=== PATIENT | female | born 1940 | race Caucasian/White ===

== ENCOUNTER → 2017-10-12 14:10 | Outpatient (CLI) | payer MEDICARE, OTHER, SELFPAY ==
[2017-10-12 14:44] LABS: HEMOLYSIS < 15 (0-50); Potassium 3.6 mmol/L (3.4-5.1)
== END ==
PROVIDERS: Family Provider Internal Medicine; PCP Internal Medicine; Visit Provider Internal Medicine
DX: I10 Essential (primary) hypertension (principal)
CPT/HCPCS: 36415; 84132

== ENCOUNTER → 2018-02-05 07:36 | Outpatient (CLI) | payer MEDICARE, OTHER, SELFPAY ==
[2018-02-05 08:20] LABS: Alanine Aminotransferase 22 IU/L (9-52); Albumin 4.4 g/dL (3.5-5.0); Albumin Globulin Ratio 1.1 (1.0-2.8); Alkaline Phosphatase 62 U/L (38-126); Aspartate Aminotransferase 34 IU/L (14-36); Bilirubin Total 0.6 mg/dL (0.2-1.3); Blood Urea Nitrogen 20 mg/dL (7-17); Calcium 9.9 mg/dL (8.4-10.2); Carbon Dioxide 37 mmol/L (22-32); Chloride 99 mmol/L (98-107); Cholesterol 186 mg/dL (140-199); Estimated Glomerular Filt Rate > 60.0 mL/min (>60); Globulin 4.1 g/dL (1.7-4.1); Glucose 112 mg/dL (80-110); HDL Cholesterol 68 mg/dL (40-60); HEMOLYSIS < 15 (0-50); LDL Cholesterol Calculated 104 mg/dL (<100); Potassium 3.7 mmol/L (3.4-5.1); Sodium 144 mmol/L (137-145); Total Protein 8.5 g/dL (6.3-8.2); Triglycerides 68 mg/dL (35-150)
== END ==
PROVIDERS: PCP Internal Medicine; Visit Provider Physician Assistant
DX: E78.5 Hyperlipidemia, unspecified (principal)
CPT/HCPCS: 36415; 80053; 80061

== ENCOUNTER → 2018-03-29 10:22 | Outpatient (CLI) | payer MEDICARE, OTHER, SELFPAY ==
[2018-03-29 11:36] LABS: Blood Urea Nitrogen 24 mg/dL (7-17); Calcium 9.4 mg/dL (8.4-10.2); Carbon Dioxide 33 mmol/L (22-32); Chloride 98 mmol/L (98-107); Estimated Glomerular Filt Rate > 60.0 mL/min (>60); Glucose 102 mg/dL (80-110); HEMOLYSIS < 15 (0-50); Potassium 3.8 mmol/L (3.4-5.1); Sodium 142 mmol/L (137-145)
== END ==
PROVIDERS: PCP Internal Medicine; Visit Provider Physician Assistant
DX: I10 Essential (primary) hypertension (principal); E87.6 Hypokalemia
CPT/HCPCS: 36415; 80048

== ENCOUNTER → 2018-04-02 14:53 | Outpatient (CLI) | payer MEDICARE, OTHER, SELFPAY ==
[2018-04-02 16:13] LABS: BUN Creatinine Ratio 31.3 (6-22); Blood Urea Nitrogen 25 mg/dL (7-17); Calcium 9.8 mg/dL (8.4-10.2); Carbon Dioxide 32 mmol/L (22-32); Chloride 98 mmol/L (98-107); Estimated Glomerular Filt Rate > 60.0 mL/min (>60); Glucose 92 mg/dL (80-110); HEMOLYSIS < 15 (0-50); Potassium 4.4 mmol/L (3.4-5.1); Sodium 140 mmol/L (137-145)
== END ==
PROVIDERS: PCP Internal Medicine; Visit Provider Physician Assistant
DX: I10 Essential (primary) hypertension (principal); E87.6 Hypokalemia
CPT/HCPCS: 36415; 80048

== ENCOUNTER → 2018-04-22 10:32 | Outpatient (CLI) | payer MEDICARE, OTHER, SELFPAY ==
[2018-04-22 11:24] LABS: BUN Creatinine Ratio 27.5 (6-22); Blood Urea Nitrogen 22 mg/dL (7-17); Calcium 10.1 mg/dL (8.4-10.2); Carbon Dioxide 31 mmol/L (22-32); Chloride 95 mmol/L (98-107); Estimated Glomerular Filt Rate > 60.0 mL/min (>60); Glucose 103 mg/dL (80-110); HEMOLYSIS < 15 (0-50); Potassium 3.8 mmol/L (3.4-5.1); Sodium 138 mmol/L (137-145)
== END ==
PROVIDERS: Family Provider Internal Medicine; PCP Internal Medicine; Visit Provider Physician Assistant
DX: I10 Essential (primary) hypertension (principal); E87.6 Hypokalemia
CPT/HCPCS: 36415; 80048

== ENCOUNTER → 2019-02-12 08:22 | Outpatient (CLI) | payer MEDICARE, OTHER, SELFPAY ==
[2019-02-12 10:05] LABS: HEMOLYSIS < 15 (0-50); Potassium 4.4 mmol/L (3.4-5.1)
[2019-02-12 10:07] LABS: BUN Creatinine Ratio 37.1 (6-22); Blood Urea Nitrogen 26 mg/dL (7-17); Calcium 9.8 mg/dL (8.4-10.2); Carbon Dioxide 32 mmol/L (22-32); Chloride 95 mmol/L (98-107); Estimated Glomerular Filt Rate > 60.0 mL/min (>60); Glucose 112 mg/dL (80-110); Sodium 137 mmol/L (137-145)
== END ==
PROVIDERS: Family Provider Internal Medicine; PCP Internal Medicine; Visit Provider Internal Medicine
DX: M85.852 Other specified disorders of bone density and structure, left thigh (principal); Z78.0 Asymptomatic menopausal state; I10 Essential (primary) hypertension; Z85.3 Personal history of malignant neoplasm of breast; Z82.62 Family history of osteoporosis; Z87.891 Personal history of nicotine dependence
CPT/HCPCS: 36415; 77080; 80048

== ENCOUNTER → 2019-02-25 08:25 | Outpatient (CLI) | payer MEDICARE, OTHER, SELFPAY ==
[2019-02-25 09:56] LABS: Hemoglobin A1C% w Est Avg Glu 5.7 % (4.0-6.0)
[2019-02-25 10:51] LABS: Aspartate Aminotransferase 31 IU/L (14-36); BUN Creatinine Ratio 26.3 (6-22); Blood Urea Nitrogen 21 mg/dL (7-17); Calcium 9.9 mg/dL (8.4-10.2); Carbon Dioxide 33 mmol/L (22-32); Chloride 93 mmol/L (98-107); Cholesterol 178 mg/dL (140-199); Estimated Glomerular Filt Rate > 60.0 mL/min (>60); Glucose 104 mg/dL (80-110); HDL Cholesterol 71 mg/dL (40-60); HEMOLYSIS < 15 (0-50); LDL Cholesterol Calculated 92 mg/dL (<100); Potassium 4.3 mmol/L (3.4-5.1); Sodium 135 mmol/L (137-145); Triglycerides 73 mg/dL (35-150)
== END ==
PROVIDERS: PCP Internal Medicine; Visit Provider Internal Medicine
DX: I10 Essential (primary) hypertension (principal); E78.2 Mixed hyperlipidemia; R73.01 Impaired fasting glucose
CPT/HCPCS: 36415; 80048; 80061; 83036; 84450

== ENCOUNTER 2019-03-06 13:10 | Observation (INO) | payer MEDICARE, OTHER, SELFPAY ==
[2019-03-06] VITALS (15 sets, daily range): BP systolic 90–150; BP diastolic 39–81; PULSE 54–81; RESP 10–20; TEMP 35.8–37.3; O2SAT 92–100; BMI 20.7
--- NOTE | 2019-03-06 | PATH_ITS ---
[facility] Accession Number: [id number] . 01 Material submitted: . appendix - APPENDIX . 02 Diagnosis: Appendix, Procedure Not Specified: Acute appendicitis and serositis. MRV 03/10/2019 1521 Local . 02 Electronically signed: . Bernadette Shannon MD, Pathologist NPI- [id number] . 01 Gross description: . Received in formalin, labeled appendix, is an intact appendix (length-12.2 cm, diameter-0.9 cm) with killian-pink smooth shiny serosa and attached mesoappendix (up to 2.0 cm in depth). The resection margin is received opened. The lumen contains killian solid soft material. The wall is up to 0.2 cm thick. No nodules, masses or lesions are identified. The resection margin is inked black. Section code: (A1) resection margin en face and four exhibit display representative serial sections; (A2) exhibit display representative serial sections; (A3) one-half of the bivalved tip. ([id number]) /MRV 03/10/2019 1644 Local . 02 Pathologist provided ICD-10: K35.80 . 02 CPT . 704658 Performed at: 01 [facility] [address] [facility], [place], [place] [id number] MD Ronald Ac MD Phone: [phone] Performed at: 02 [facility] [address] [place], [place] [id number] MD Kelly Poole MD Phone: [phone]
[2019-03-06 13:39] LABS: Add Manual Diff / Slide Review NO; Basophils Absolute Auto 100 /uL (0-100); Basophils Percent Auto 0.6 % (0-2); Eosinophils Absolute Auto 300 /uL (0-450); Eosinophils Percent Auto 2.1 % (2-4); Hematocrit 36.2 % (36-46); Hemoglobin 12.2 g/dL (12.0-16.0); Lymphocytes Absolute Auto 1600 /uL (1100-4500); Lymphocytes Percent Auto 10.5 % (25-40); Mean Corpuscular HGB Conc 33.6 % (30-36); Mean Corpuscular Hemoglobin 33.9 PG (26-34); Mean Corpuscular Volume 100.7 fL (80-100); Monocytes Absolute Auto 1100 /uL (0-900); Monocytes Percent Auto 7.3 % (3-14); Neutrophils Absolute Auto 11900 /uL (1500-7000); Neutrophils Percent Auto 79.5 % (50-75); Platelet Count 266 X10^3/uL (150-400); Red Cell Distribution Width 12.7 % (11.6-14.8)
--- NOTE | 2019-03-06 13:43 | ED.ABDPAIN ---
HPI - Abdominal Pain <Tiff Andrade PA-C - Last Filed: 03/06/19 19:21> General Chief Complaint: Abdominal Pain Stated Complaint: right lower quadrant pain xtoday Time Seen by Provider: 03/06/19 13:35 Source: patient Mode of arrival: Wheelchair Limitations: no limitations History of Present Illness HPI narrative: This 79-year-old female comes to ED secondary to right lower quadrant pain that started abruptly about 2-1/2 hours ago. She states that she felt normal this morning, ate about 10 30 and pain started an hour later (her ate the same food and no symptoms). She states this felt localized from onset, now more spread out over the right lower quadrant. She does have nausea, has not vomited. She denies any urinary symptoms such as dysuria or hematuria. She denies any bowel habit changes and had a normal bowel movement today. She denies any chest pain, dyspnea, pain or swelling in her extremities. She denies any fever. No rashes. No recent illness. She states pain is worse when up and about, especially with going over speed bumps on the way here. No specific alleviating features. She denies any lifting or any type of trauma prior to onset Related Data Home Medications Medication Instructions Recorded Confirmed timolol maleate 1 drp EYE-BOTH BEDTIME #0 04/12/16 03/06/19 zolpidem 2.5 mg PO BEDTIME PRN #0 04/12/16 03/06/19 Allertec 10 mg PO DAILY 03/06/19 03/06/19 CoQ-10 300 mg PO 3XW 03/06/19 03/06/19 calcium citrate-vitamin D3 2 tab PO DAILY 03/06/19 03/06/19 cyanocobalamin (vitamin B-12) 1,000 mcg PO DAILY 03/06/19 03/06/19 [Vitamin B-12] folic acid 0.4 mg PO DAILY 03/06/19 03/06/19 ibuprofen 600 mg PO Q6HP PRN 03/06/19 03/06/19 rosuvastatin 5 mg PO DAILY 03/06/19 03/06/19 spironolactone 50 mg PO BID 03/06/19 03/06/19 Allergies Allergy/AdvReac Type Severity Reaction Status Date / Time No Known Drug Allergies Allergy Verified 03/06/19 13:16 Review of Systems <Tiff Andrade PA-C - Last Filed: 03/06/19 19:21> Review of Systems ROS Unobtainable: All systems reviewed & are unremarkable except as noted in HPI and below PFSH <Tiff Andrade PA-C - Last Filed: 03/06/19 19:21> Medical History Glaucoma (Chronic) HTN (hypertension) (Chronic) Hyperlipidemia (Chronic) Surgical History Status post cholecystectomy (Resolved) Status post partial mastectomy Social History Smoking Status: Former smoker Social History household members: spouse Smoking Status: Former smoker Comment: Quit 1973 Exam <Tiff Andrade PA-C - Last Filed: 03/06/19 19:21> Narrative Exam Narrative: GENERAL APPEARANCE: Patient sitting comfortably HEENT: PERRL, EOMI, no scleral icterus, normal oropharynx NECK: Supple, no masses LUNGS: Clear to auscultation bilaterally. HEART: Rate and rhythm regular, normal S1 and S2, no S3 or S4. ABDOMEN: Soft, nondistended, bowel sounds present x 4 quadrants, no masses palpable, no hepatosplenomegaly. Generalized referred tenderness, exquisite tenderness over the right lower quadrant with rebound, no guarding. No suprapubic tenderness EXTREMITIES: No edema, no cyanosis, no calf tenderness DERMATOLOGIC: No jaundice or exanthem NEUROLOGIC: Alert and oriented with normal speech and coordination Initial Vital Signs Initial Vital Signs: Vital Signs Temperature 97.2 F L 03/06/19 13:14 Pulse Rate 59 L 03/06/19 13:14 Respiratory Rate 18 03/06/19 13:14 Blood Pressure 90/55 L 03/06/19 13:14 Pulse Oximetry 100 03/06/19 13:14 <Charles Quick DO - Last Filed: 03/07/19 06:57> Initial Vital Signs Initial Vital Signs: Vital Signs Temperature 97.2 F L 03/06/19 13:14 Pulse Rate 59 L 03/06/19 13:14 Respiratory Rate 18 03/06/19 13:14 Blood Pressure 90/55 L 03/06/19 13:14 Pulse Oximetry 100 03/06/19 13:14 Course <Tiff Andrade PA-C - Last Filed: 03/06/19 19:21> Course Additional Information: Radiologist called regarding parents of inflamed appendix on CT as well as possible gallbladder inflammation and mild ileus.. Harry happened to be in department and findings were reviewed. He plans to operate later today or tomorrow. Patient last ate at 10:30 a.m.. Zosyn started. Pain and nausea currently well controlled Orders Ordered: Gabapentin (Neurontin) 300 mg PO BEDTIME [facility] Last Admin: 03/06/19 21:30 Dose: Not Given Documented by: ELYSE Dextrose/Sodium Chloride (Dextrose 5%-0.45% Ns) 1,000 mls @ 84 mls/hr IV CONT [facility] Last Admin: 03/07/19 05:54 Dose: 84 mls/hr Documented by: Infusion: 03/07/19 05:54 Dose: 84 mls/hr Documented by: Admin: 03/06/19 19:52 Dose: 84 mls/hr Documented by: ELYSE Morphine Sulfate (Morphine) 2 mg IV Q2HR PRN PRN Reason: Pain, Moderate (4-6) Last Admin: 03/06/19 22:26 Dose: 2 mg Documented by: ELYSE Oxycodone/Acetaminophen (Percocet 5/325) 1 tab PO Q4HR PRN PRN Reason: Pain, Moderate (4-6) Ranitidine HCl (Zantac) 150 mg PO BID [facility] Last Admin: 03/06/19 21:30 Dose: Not Given Documented by: ELYSE Discontinued Medications Bacitracin (Bacitracin) 1 applic TOP NOW ONE Stop: 03/06/19 18:40 Last Admin: 03/06/19 18:40 Dose: 1 applic Documented by: NARA Bupivacaine HCl/Epinephrine Bitart (Sensorcaine 0.5% W/ Epi (Pf)) 30 ml INJ NOW ONE Stop: 03/06/19 18:28 Last Admin: 03/06/19 18:27 Dose: 20 ml Documented by: NARA Sodium Chloride 1,000 ml/ (Bacitracin 50,000 unit) 0 ml IRR NOW ONE Stop: 03/06/19 18:28 Last Admin: 03/06/19 18:27 Dose: 50,000 irrig.soln Documented by: NARA Sodium Chloride (Normal Saline 0.9%) 1,000 mls @ 1,000 mls/hr IV BOLUS ONE Stop: 03/06/19 14:55 Last Infusion: 03/06/19 15:40 Dose: 0 mls/hr Documented by: Admin: 03/06/19 14:06 Dose: 1,000 mls/hr Documented by: ROBBIE Piperacillin/Tazobactam/Dextrose (Zosyn) 3.375 gm in 50 mls @ 100 mls/hr IV NOW ONE Stop: 03/06/19 15:14 Last Infusion: 03/06/19 15:40 Dose: 0 mls/hr Documented by: Admin: 03/06/19 14:48 Dose: 100 mls/hr Documented by: ROMEO Lactated Ringer's (Lactated Ringers) 1,000 mls @ 42 mls/hr IV CONT [facility] Last Admin: 03/06/19 16:30 Dose: 42 mls/hr Documented by: MIGUEL Ketorolac Tromethamine (Toradol) 15 mg IV NOW ONE Stop: 03/06/19 13:57 Last Admin: 03/06/19 14:05 Dose: 15 mg Documented by: ROBBIE Morphine Sulfate (Morphine) 2 mg IV NOW ONE Stop: 03/06/19 13:57 Last Admin: 03/06/19 14:06 Dose: 2 mg Documented by: ROBBIE Ondansetron HCl (Zofran) 4 mg IV NOW ONE Stop: 03/06/19 13:57 Last Admin: 03/06/19 14:05 Dose: 4 mg Documented by: ROBBIE Vital Signs Vital signs: Vital Signs - 8 hr 03/06/19 13:14 Temperature 97.2 F L Pulse Rate 59 L Respiratory Rate 18 Blood Pressure 90/55 L Pulse Oximetry 100 <Charles Quick, DO - Last Filed: 03/07/19 06:57> Orders Ordered: Gabapentin (Neurontin) 300 mg PO BEDTIME [facility] Last Admin: 03/06/19 21:30 Dose: Not Given Documented by: ELYSE Dextrose/Sodium Chloride (Dextrose 5%-0.45% Ns) 1,000 mls @ 84 mls/hr IV CONT [facility] Last Admin: 03/07/19 05:54 Dose: 84 mls/hr Documented by: Infusion: 03/07/19 05:54 Dose: 84 mls/hr Documented by: Admin: 03/06/19 19:52 Dose: 84 mls/hr Documented by: ELYSE Morphine Sulfate (Morphine) 2 mg IV Q2HR PRN PRN Reason: Pain, Moderate (4-6) Last Admin: 03/06/19 22:26 Dose: 2 mg Documented by: ELYSE Oxycodone/Acetaminophen (Percocet 5/325) 1 tab PO Q4HR PRN PRN Reason: Pain, Moderate (4-6) Ranitidine HCl (Zantac) 150 mg PO BID [facility] Last Admin: 03/06/19 21:30 Dose: Not Given Documented by: ELYSE Discontinued Medications Bacitracin (Bacitracin) 1 applic TOP NOW ONE Stop: 03/06/19 18:40 Last Admin: 03/06/19 18:40 Dose: 1 applic Documented by: NARA Bupivacaine HCl/Epinephrine Bitart (Sensorcaine 0.5% W/ Epi (Pf)) 30 ml INJ NOW ONE Stop: 03/06/19 18:28 Last Admin: 03/06/19 18:27 Dose: 20 ml Documented by: ALTRO Sodium Chloride 1,000 ml/ (Bacitracin 50,000 unit) 0 ml IRR NOW ONE Stop: 03/06/19 18:28 Last Admin: 03/06/19 18:27 Dose: 50,000 irrig.soln Documented by: ALTRO Sodium Chloride (Normal Saline 0.9%) 1,000 mls @ 1,000 mls/hr IV BOLUS ONE Stop: 03/06/19 14:55 Last Infusion: 03/06/19 15:40 Dose: 0 mls/hr Documented by: Admin: 03/06/19 14:06 Dose: 1,000 mls/hr Documented by: ROBBIE Piperacillin/Tazobactam/Dextrose (Zosyn) 3.375 gm in 50 mls @ 100 mls/hr IV NOW ONE Stop: 03/06/19 15:14 Last Infusion: 03/06/19 15:40 Dose: 0 mls/hr Documented by: Admin: 03/06/19 14:48 Dose: 100 mls/hr Documented by: ROMOE Lactated Ringer's (Lactated Ringers) 1,000 mls @ 42 mls/hr IV CONT [facility] Last Admin: 03/06/19 16:30 Dose: 42 mls/hr Documented by: AKUNMARCE Ketorolac Tromethamine (Toradol) 15 mg IV NOW ONE Stop: 03/06/19 13:57 Last Admin: 03/06/19 14:05 Dose: 15 mg Documented by: BTONER Morphine Sulfate (Morphine) 2 mg IV NOW ONE Stop: 03/06/19 13:57 Last Admin: 03/06/19 14:06 Dose: 2 mg Documented by: BTONER Ondansetron HCl (Zofran) 4 mg IV NOW ONE Stop: 03/06/19 13:57 Last Admin: 03/06/19 14:05 Dose: 4 mg Documented by: BTONER Vital Signs Vital signs: Vital Signs - 8 hr 03/06/19 13:14 Temperature 97.2 F L Pulse Rate 59 L Respiratory Rate 18 Blood Pressure 90/55 L Pulse Oximetry 100 MDM - Abdominal Pain <Tiff Andrade PA-C - Last Filed: 03/06/19 19:21> Lab Data Attestation: I reviewed the patient's lab results. Result diagrams: 03/06/19 13:30 03/06/19 13:30 Labs: Lab Results 03/06/19 03/06/19 03/06/19 Range/Units 13:30 13:30 13:30 WBC 15.0 H (4.5-11.0) X10^3/uL RBC 3.60 L (4.0-5.2) X10^6/uL Hgb 12.2 (12.0-16.0) g/dL Hct 36.2 (36-46) % MCV 100.7 H (80-100) fL MCH 33.9 (26-34) PG MCHC 33.6 (30-36) % RDW 12.7 (11.6-14.8) % Plt Count 266 (150-400) X10^3/uL Neut % (Auto) 79.5 H (50-75) % Lymph % (Auto) 10.5 L (25-40) % [place] % (Auto) 7.3 (3-14) % Eos % (Auto) 2.1 (2-4) % Baso % (Auto) 0.6 (0-2) % Neut # (Auto) 51174 H (2181-2568) /uL Lymph # (Auto) 1600 (8294-2474) /uL [place] # (Auto) 1100 H (0-900) /uL Eos # (Auto) 300 (0-450) /uL Baso # (Auto) 100 (0-100) /uL PT 11.6 (10.1-12.7) SECONDS INR 1.0 (0.9-1.3) APTT 29 (26.4-36.2) SECONDS Sodium 134 L (137-145) mmol/L Potassium 4.0 (3.4-5.1) mmol/L Chloride 94 L (98-107) mmol/L Carbon Dioxide 28 (22-32) mmol/L BUN 28 H (7-17) mg/dL Creatinine 1.10 H (0.52-1.04) mg/dL Estimated GFR 48.2 L (>60) mL/min BUN/Creatinine Ratio 25.5 H (6-22) Glucose 139 H (80-110) mg/dL Calcium 10.0 (8.4-10.2) mg/dL Total Bilirubin 0.4 (0.2-1.3) mg/dL AST 32 (14-36) IU/L ALT 15 (9-52) IU/L Alkaline Phosphatase 59 (38-126) U/L Total Protein 8.0 (6.3-8.2) g/dL Albumin 4.5 (3.5-5.0) g/dL Globulin 3.5 (1.7-4.1) g/dL Albumin/Globulin Ratio 1.3 (1.0-2.8) Lipase 62 (23-300) U/L Imaging Data CT scan - abdomen: Radiologist's impression: [address] [address] [address] Scan Report Signed Patient: Brenda Lerma EMR#: [id number] : 2Acct:[id number] Age/Sex: 79 / FDate of Service: 03/06/19 Loc: AQ88O-7 Accession Number: [id number] Procedure: CT abdomen pelvis w con Ordering Provider: Tiff Andrade P.A-C PROCEDURE: CT ABDOMEN PELVIS W CON INDICATIONS: RLQ pain, nausea, white count TECHNIQUE: After the administration of intravenous contrast, 5 mm thick sections acquired from the diaphragm to the symphysis. 5 mm coronal and sagittal reformats were acquired. For radiation dose reduction, the following was used: automated exposure control, adjustment of mA and/or kV according to patient size. COMPARISON: CT chest 03/19/2007. FINDINGS: Image quality: Excellent. ABDOMEN: Lung bases: Lung bases are clear. Heart size is normal. Solid organs: Liver is normal in size and enhancement. A few tiny hepatic hypodensities which are too small to further characterize. Statistically these most likely represent benign cysts. Gallbladder is nondistended. No calcified gallstones. There is trace pericholecystic fluid. The gallbladder wall may be mildly thickened with increased enhancement. Biliary system is non dilated. Pancreas enhances normally. Spleen is normal in size and enhancement. Well-circumscribed hypodense lesion measuring 2.8 x 2.6 cm, (2/10), previously 1.1 x 0.9 cm. Second subcentimeter hypodensity in the lateral superior pole is smaller. These most likely represents a hemangiomas or cysts. No adrenal nodules. Kidneys demonstrate normal size and enhancement, without hydronephrosis. Several small nonobstructing kidney stones bilaterally. Right kidney superior pole simple cyst measuring 5 cm. Simple cyst in the left kidney. No solid mass. Peritoneum and bowel: The appendix is mildly dilated measuring 8 mm, (2/38). There is moderate surrounding fat stranding. No calcified appendicolith. No loculated fluid collection or extra luminal gas. There are a few prominent loops of small bowel in the lower abdomen. The colon is redundant. Nodes and vessels: No retroperitoneal or mesenteric adenopathy by size criteria. Aorta and inferior vena cava are normal in size. Miscellaneous: No ventral hernias. PELVIS: Genitourinary: Bladder wall thickness is normal. Uterus is retroverted and normal in size. Probable small calcified fibroids. Miscellaneous: Small fat-containing inguinal hernias. Bones: Osteopenia. No suspicious bony lesions. No vertebral body compression fractures. IMPRESSION: 1. Dilated appendix with surrounding inflammatory change is most consistent with acute appendicitis. No rupture or abscess. 2. Probable secondary inflammatory change of the nondilated gallbladder wall. 3. A few dilated loops of small bowel most likely ileus. Comment: Findings were discussed with Tiff Andrade PA-C at the time of dictation. Dictated by: Steve Vigil M.D. on 03/06/2019 at 14:30 Approved by: Steve Vigil M.D. on 03/06/2019 at 14:45 ECG Data Attestation: I personally reviewed and interpreted this ECG as follows: (Normal sinus rhythm rate 75) Prior ECG tracings: not available for review <Charles Quick DO - Last Filed: 03/07/19 06:57> Lab Data Labs: Lab Results 03/06/19 03/06/19 03/06/19 Range/Units 13:30 13:30 13:30 WBC 15.0 H (4.5-11.0) X10^3/uL RBC 3.60 L (4.0-5.2) X10^6/uL Hgb 12.2 (12.0-16.0) g/dL Hct 36.2 (36-46) % MCV 100.7 H (80-100) fL MCH 33.9 (26-34) PG MCHC 33.6 (30-36) % RDW 12.7 (11.6-14.8) % Plt Count 266 (150-400) X10^3/uL Neut % (Auto) 79.5 H (50-75) % Lymph % (Auto) 10.5 L (25-40) % [place] % (Auto) 7.3 (3-14) % Eos % (Auto) 2.1 (2-4) % Baso % (Auto) 0.6 (0-2) % Neut # (Auto) 30106 H (6970-5582) /uL Lymph # (Auto) 1600 (9774-0725) /uL [place] # (Auto) 1100 H (0-900) /uL Eos # (Auto) 300 (0-450) /uL Baso # (Auto) 100 (0-100) /uL PT 11.6 (10.1-12.7) SECONDS INR 1.0 (0.9-1.3) APTT 29 (26.4-36.2) SECONDS Sodium 134 L (137-145) mmol/L Potassium 4.0 (3.4-5.1) mmol/L Chloride 94 L (98-107) mmol/L Carbon Dioxide 28 (22-32) mmol/L BUN 28 H (7-17) mg/dL Creatinine 1.10 H (0.52-1.04) mg/dL Estimated GFR 48.2 L (>60) mL/min BUN/Creatinine Ratio 25.5 H (6-22) Glucose 139 H (80-110) mg/dL Calcium 10.0 (8.4-10.2) mg/dL Total Bilirubin 0.4 (0.2-1.3) mg/dL AST 32 (14-36) IU/L ALT 15 (9-52) IU/L Alkaline Phosphatase 59 (38-126) U/L Total Protein 8.0 (6.3-8.2) g/dL Albumin 4.5 (3.5-5.0) g/dL Globulin 3.5 (1.7-4.1) g/dL Albumin/Globulin Ratio 1.3 (1.0-2.8) Lipase 62 (23-300) U/L Discharge Plan Departure Patient Disposition: Admitted as Observation Clinical Impression: Acute appendicitis Qualifiers: Acute appendicitis type: with localized peritonitis Appendicitis gangrene presence: without gangrene Appendicitis perforation presence: without perforation Appendicitis abscess presence: without abscess Qualified Code(s): K35.30 - Acute appendicitis with localized peritonitis, without perforation or gangrene Discharge Date/Time: 03/06/19 16:03 Admit Date/Time: 03/06/19 14:36 Admit Provider: Donn Mcdonald
[2019-03-06 13:57] LABS: Alanine Aminotransferase 15 IU/L (9-52); Albumin 4.5 g/dL (3.5-5.0); Albumin Globulin Ratio 1.3 (1.0-2.8); Alkaline Phosphatase 59 U/L (38-126); Aspartate Aminotransferase 32 IU/L (14-36); BUN Creatinine Ratio 25.5 (6-22); Bilirubin Total 0.4 mg/dL (0.2-1.3); Blood Urea Nitrogen 28 mg/dL (7-17); Carbon Dioxide 28 mmol/L (22-32); Chloride 94 mmol/L (98-107); Estimated Glomerular Filt Rate 48.2 mL/min (>60); Globulin 3.5 g/dL (1.7-4.1); Glucose 139 mg/dL (80-110); HEMOLYSIS < 15 (0-50); Lipase 62 U/L (23-300); Sodium 134 mmol/L (137-145)
--- NOTE | 2019-03-06 13:57 | DI.CT.S_ITS ---
PROCEDURE: CT ABDOMEN PELVIS W CON INDICATIONS: RLQ pain, nausea, white count TECHNIQUE: After the administration of intravenous contrast, 5 mm thick sections acquired from the diaphragm to the symphysis. 5 mm coronal and sagittal reformats were acquired. For radiation dose reduction, the following was used: automated exposure control, adjustment of mA and/or kV according to patient size. COMPARISON: CT chest 03/19/2007. FINDINGS: Image quality: Excellent. ABDOMEN: Lung bases: Lung bases are clear. Heart size is normal. Solid organs: Liver is normal in size and enhancement. A few tiny hepatic hypodensities which are too small to further characterize. Statistically these most likely represent benign cysts. Gallbladder is nondistended. No calcified gallstones. There is trace pericholecystic fluid. The gallbladder wall may be mildly thickened with increased enhancement. Biliary system is non dilated. Pancreas enhances normally. Spleen is normal in size and enhancement. Well-circumscribed hypodense lesion measuring 2.8 x 2.6 cm, (2/10), previously 1.1 x 0.9 cm. Second subcentimeter hypodensity in the lateral superior pole is smaller. These most likely represents a hemangiomas or cysts. No adrenal nodules. Kidneys demonstrate normal size and enhancement, without hydronephrosis. Several small nonobstructing kidney stones bilaterally. Right kidney superior pole simple cyst measuring 5 cm. Simple cyst in the left kidney. No solid mass. Peritoneum and bowel: The appendix is mildly dilated measuring 8 mm, (2/38). There is moderate surrounding fat stranding. No calcified appendicolith. No loculated fluid collection or extra luminal gas. There are a few prominent loops of small bowel in the lower abdomen. The colon is redundant. Nodes and vessels: No retroperitoneal or mesenteric adenopathy by size criteria. Aorta and inferior vena cava are normal in size. Miscellaneous: No ventral hernias. PELVIS: Genitourinary: Bladder wall thickness is normal. Uterus is retroverted and normal in size. Probable small calcified fibroids. Miscellaneous: Small fat-containing inguinal hernias. Bones: Osteopenia. No suspicious bony lesions. No vertebral body compression fractures. IMPRESSION: 1. Dilated appendix with surrounding inflammatory change is most consistent with acute appendicitis. No rupture or abscess. 2. Probable secondary inflammatory change of the nondilated gallbladder wall. 3. A few dilated loops of small bowel most likely ileus. Comment: Findings were discussed with Tiff Andrade PA-C at the time of dictation. Dictated by: Steve Vigil M.D. on 03/06/2019 at 14:30 Approved by: Steve Vigil M.D. on 03/06/2019 at 14:45
[2019-03-06] MEDS: ONDANSETRON 4 MG/2 ML INJ IV (14:05)
[2019-03-06] MEDS: KETOROLAC 60 MG/2 ML VIAL 15 MG IV (14:05)
[2019-03-06 14:06] LABS: Prothrombin Time 11.6 SECONDS (10.1-12.7)
[2019-03-06] MEDS: MORPHINE 2 MG/ML INJ IV ×2 (14:06→22:26)
[2019-03-06] MEDS: SODIUM CHLORIDE 0.9% 1,000 ML 1000 ML IV (14:06)
[2019-03-06 14:09] LABS: PTT Partial Thromboplastin Tim 29 SECONDS (26.4-36.2)
[2019-03-06] MEDS: PIPERACILLIN-TAZO 3.375 GM/50 ML FROZ.PIGGY IV (14:48)
--- NOTE | 2019-03-06 15:08 | P.HP_ITS ---
History of Present Illness History of Present Illness Date Patient Seen: 03/06/19 Time Patient Seen: 15:08 Chief complaint: right lower quadrant pain xtoday Narrative: 79-year-old white female patient developed sudden lower abdominal pain late this morning has subsequently had increasing pain with considerable nausea but no vomiting. She is now anorectic. [place] [address] [place] scan showing evidence of ac [place] appendicitis uncomplicated. Hemoglobins normal. Liver chemistries are normal. Patient History Medical History Glaucoma (Chronic) HTN (hypertension) (Chronic) Hyperlipidemia (Chronic) Surgical History Status post cholecystectomy (Resolved) Status post partial mastectomy Social History Smoking Status: Former smoker Family & Social History Safety & Behavioral: Feels Safe in Current Yes Environment Been Physically Hurt or No Threatened By a Person Tobacco & Substance use: Smoking Status Former smoker alcohol intake frequency 0-2 drinks per day Substance Use Type does not use Meds Home Medications and Allergies Home Medications Medication Instructions Recorded Confirmed Type POTASSIUM CHLORIDE (POTASSIUM 30 meq PO Q DAY #0 01/30/12 History CHLORIDE 10ML VIAL) aspirin 81 mg PO QDAY #0 01/30/12 History hydrochlorothiazide 50 mg PO QDAY #0 01/30/12 History timolol maleate 1 drp OPHTH DAILY #0 04/12/16 03/06/19 History zolpidem 5 mg PO HSP PRN #0 04/12/16 History ibuprofen 600 mg PO Q6HP PRN #60 tab 11/25/16 Rx rosuvastatin 5 mg PO DAILY 03/06/19 03/06/19 History Allergies Allergy/AdvReac Type Severity Reaction Status Date / Time No Known Drug Allergies Allergy Verified 03/06/19 13:16 Review of Systems Review of Systems ROS Unobtainable: All systems reviewed & are unremarkable except as noted in HPI and below Exam Vital Signs (past 8 hours): - 03/06/19 13:14 03/06/19 14:55 Temperature 97.2 F L Pulse Rate 59 L 81 Respiratory Rate 18 15 Blood Pressure 90/55 L Blood Pressure [Left Arm] 124/54 L Pulse Oximetry 100 99 Oxygen Delivery Method Room Air Narrative Exam Narrative: Patient is alert oriented complaining of lower abdominal pain she is afebrile. Ears nose and throat are normal. Neck no adenopathy. Heart regular rhythm no murmur Lungs are clear with no rales or wheezes Abdomen is soft in the upper quadrants with exquisite right lower quadrant guarding and tenderness. No masses are palpated. Remaining physical is unremarkable. Neurologic intact. Objective Labs Result Diagrams: 03/06/19 13:30 03/06/19 13:30 Labs: Laboratory Results - last 24 hr 03/06/19 03/06/19 03/06/19 13:30 13:30 13:30 WBC 15.0 H RBC 3.60 L Hgb 12.2 Hct 36.2 MCV 100.7 H MCH 33.9 MCHC 33.6 RDW 12.7 Plt Count 266 Neut % (Auto) 79.5 H Lymph % (Auto) 10.5 L [place] % (Auto) 7.3 Eos % (Auto) 2.1 Baso % (Auto) 0.6 Neut # (Auto) 52573 H Lymph # (Auto) 1600 [place] # (Auto) 1100 H Eos # (Auto) 300 Baso # (Auto) 100 PT 11.6 INR 1.0 APTT 29 Sodium 134 L Potassium 4.0 Chloride 94 L Carbon Dioxide 28 BUN 28 H Creatinine 1.10 H Estimated GFR 48.2 L BUN/Creatinine Ratio 25.5 H Glucose 139 H Calcium 10.0 Total Bilirubin 0.4 AST 32 ALT 15 Alkaline Phosphatase 59 Total Protein 8.0 Albumin 4.5 Globulin 3.5 Albumin/Globulin Ratio 1.3 Lipase 62 Assessment & Plan Assessment & Plan narrative: Patient with a elevated white blood cell count and CT evidence of acute uncomplicated appendicitis which is consistent with her history and physical exam. I have explained to the patient her that we will plan an appendectomy as soon as space is available in the operating room. They understand and agree and have no further questions.
[2019-03-06] MEDS: LACTATED RINGERS 1,000 ML 42 ML IV (16:30)
--- NOTE | 2019-03-06 17:03 | PC.NURSE ---
Addendum entered by Yelitza Isaac R.N. 03/06/19 19:50: 1935: Patient return from PACU in stable condition. Received on O2 at 2L via NC, sat >96% while awake. SCD in place. No nausea, tolerating ice chips. No c/o pain. dressing to RLQ abdomen with 4 x 4 gauze x 2 CDI. Original Note: Cony shift note: 1700 Patient off unit to Pre Op with [place] FRANCIS. Patient awake, alert, and pleasant. NPO since 11:30. at bedside providing supportive care. VSS and afebrile.
--- NOTE | 2019-03-06 17:55 | SUR.OPER ---
Supine on padded OR bed, head on pillow, arms secured on padded arm boards at <90 degrees abduction, legs uncrossed, safety belt at thigh, tape over blanket over lower legs.
[2019-03-06] MEDS: SODIUM CHLORIDE IRRIG SOLUTION 1,000 ML, BACITRACIN 50,000 UNIT IRR (18:27)
[2019-03-06] MEDS: BUPIVACAINE 0.5% W/ EPI (PF) VIAL 30 ML INJ (18:27)
[2019-03-06] MEDS: BACITRACIN OINT 0.9 GM PCKT 1 APPLIC TOP (18:40)
--- NOTE | 2019-03-06 18:47 | PM.OP.1 ---
Operative Date/Time/Diagnoses Date of procedure: 03/06/19 Time of procedure: 18:47 Pre-op diagnosis: Acute uncomplicated appendicitis Post-op diagnosis: same Procedure & Clinicians Procedure: Appendectomy Same procedure as scheduled: Yes Surgeon: Donn cMdonald Click Yes if Unassisted: Yes Anesthesia Type: General Operative Notes Findings: Acute uncomplicated appendicitis Closure Type: primary Specimen(s): other (Appendix and appendiceal cultures) Estimated Blood Loss (mL): 50 Blood products transfused: none Procedure in detail: The patient was properly identified during surgical pause given a general endotracheal anesthetic prepped and draped in the sterile fashion exposure of the lower abdomen. A standard Bowen-Santana incision was made over McBurney's point. The oblique muscles split in the grid iron fashion to expose the peritoneum which was elevated and entered so as to avoid injury to the underlying structures. The appendix was rotated into the wound it was markedly elongated and coated with fibrin but was not ruptured and there was no abscess. Patient had uncomplicated acute appendicitis. Mesoappendix divided between clamps the vessels ligated with 2 0 Vicryl there was excellent hemostasis the base of the appendix was closed with a TA 30? stapler and the appendix removed over the staple line which was intact. There is no bleeding. The cecum rotated back into the abdomen and the pelvis was irrigated with a copious amount of bacitracin saline. The appendix had been cultured prior to any irrigation. Peritoneum was closed with running 2 0 Vicryl. Oblique fascia closed with 1. PDS. Subcu closed with fine Vicryl. The subcu had been irrigated with bacitracin saline and then the skin was stapled. Sterile dressings applied she tolerated the procedure very well. Skin was anesthetized with 0.5% Marcaine prior to closure. Complications: none Post-operative Condition: stable Disposition: PACU
[2019-03-06] MEDS: DEXTROSE 5%-0.45% NS 1,000 ML 84 ML IV (19:52)
[2019-03-07 00:35] VITALS: BP 120/63; PULSE 60; RESP 16; TEMP 36.9; O2SAT 99
[2019-03-07] MEDS: DEXTROSE 5%-0.45% NS 1,000 ML 84 ML IV (05:54)
[2019-03-07 05:57] VITALS: BP 112/56; PULSE 58; RESP 17; TEMP 36.5; O2SAT 98
[2019-03-07 07:15] VITALS: BP 107/58; PULSE 55; RESP 18; TEMP 36.5; O2SAT 100
--- NOTE | 2019-03-07 09:39 | P.DS_ITS ---
History of Present Illness History of Present Illness Date Patient Seen: 03/07/19 Time Patient Seen: 09:40 Chief complaint: right lower quadrant pain xtoday Narrative: 79-year-old white female patient developed sudden lower abdominal pain late this morning has subsequently had increasing pain with considerable nausea but no vomiting. She is now anorectic. She came [place] the [place] [address] [place] scan showing evidence of ac [place] appendicitis uncomplicated. Hemoglobins normal. Liver chemistries are normal. Discharge Providers Provider Date of admission: 03/06/19 14:36 Discharge Date: 03/07/19 Primary care physician: Alex Clay MD Discharge provider: Donn Mcdonald MD Summary Hospital Course Discharge Diagnosis: Acute uncomplicated appendicitis Hospital Course: Patient was admitted through the emergency department given IV fluids and antibiotics and taken to the operating room the evening of admission. She underwent open appendectomy for uncomplicated appendicitis. This morning she feels very well better than before surgery. Minimal discomfort. She is tolerating a diet and has return of GI function. She is discharged home to resume pre-admission medications no prescriptions are given. Status at Discharge Cognitive/behavioral status at discharge: oriented Functional status at discharge: independent ambulation Overall status at discharge: patient is back to baseline Time Spent with Patient Time spent: Less than 30 minutes Exam Vital Signs (past 8 hours): - 03/07/19 05:57 03/07/19 07:15 Temperature 97.7 F 97.7 F Pulse Rate 58 L 55 L Respiratory Rate 17 18 Blood Pressure 112/56 L 107/58 L Pulse Oximetry 98 100 Oxygen Delivery Method Room Air Oxygen Flow Rate 0 Narrative Exam Narrative: Patient is afebrile abdomen is soft dressing is intact and dry. Objective Labs Result Diagrams: 03/06/19 13:30 03/06/19 13:30 Labs: Laboratory Results - last 24 hr 03/06/19 03/06/19 03/06/19 13:30 13:30 13:30 WBC 15.0 H RBC 3.60 L Hgb 12.2 Hct 36.2 MCV 100.7 H MCH 33.9 MCHC 33.6 RDW 12.7 Plt Count 266 Neut % (Auto) 79.5 H Lymph % (Auto) 10.5 L [place] % (Auto) 7.3 Eos % (Auto) 2.1 Baso % (Auto) 0.6 Neut # (Auto) 58430 H Lymph # (Auto) 1600 [place] # (Auto) 1100 H Eos # (Auto) 300 Baso # (Auto) 100 PT 11.6 INR 1.0 APTT 29 Sodium 134 L Potassium 4.0 Chloride 94 L Carbon Dioxide 28 BUN 28 H Creatinine 1.10 H Estimated GFR 48.2 L BUN/Creatinine Ratio 25.5 H Glucose 139 H Calcium 10.0 Total Bilirubin 0.4 AST 32 ALT 15 Alkaline Phosphatase 59 Total Protein 8.0 Albumin 4.5 Globulin 3.5 Albumin/Globulin Ratio 1.3 Lipase 62 Discharge Plan Discharge Plan Patient Disposition: Home Discharge Med Rec/Prescriptions Prescriptions: Continued timolol maleate 0.5 % drops 1 drp EYE-BOTH BEDTIME Qty: 0 RF: 0 zolpidem 5 MG tablet 2.5 mg PO BEDTIME PRN (Reason: Sleep) Qty: 0 RF: 0 rosuvastatin 5 mg tablet 5 mg PO DAILY RF: 0 spironolactone 50 mg tablet 50 mg PO BID RF: 0 Allertec 10 mg 10 mg PO DAILY RF: 0 cyanocobalamin (vitamin B-12) [Vitamin B-12] 1,000 mcg Tablet 1,000 mcg PO DAILY RF: 0 calcium citrate-vitamin D3 200 mg calcium -250 unit Tablet 2 tab PO DAILY RF: 0 CoQ-10 300 mg 300 mg PO 3XW RF: 0 ibuprofen 600 MG tablet 600 mg PO Q6HP PRN (Reason: pain) RF: 0 folic acid 400 mcg Tablet 0.4 mg PO DAILY RF: 0 Follow up/Referrals: Alex Clay MD [Primary Care Provider] - Provider Discharge Instructions Diet: Diet as Tolerated Activity: Resume normal activities but avoid heavy lifting for a month. Skin/Wound/Dressing Care Report to your healthcare provider any signs of infection, such as:: chills, fever, night sweats, increased pain, unusual drainage and unusual redness Dressing: Change dressing in 48 hours re-dress as needed may shower at any time with or without dressing in place Visit Report/Discharge Packet Instructions: DI for an Appendectomy Discharge Data Primary Care Provider: Alex Clay V Attending Provider: Donn Mcdonald Admit Date/Time: 03/06/19 14:36
--- NOTE | 2019-03-07 10:29 | CM.IDA ---
Initial DCP Assessment Note: Pt is a 79 yo female, resident of [place]. Pt under observation for acute appendicitis and has been DC this morning. PCP: Dr Clay Payer: Medicare/[facility] Met w/pt explained SW role. 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 No needs identified. 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 Yes History Provided By Patient,Medical Record Prior Living Arrangements House Household Members spouse Type of transporation used prior to Drives own vehicle admit Independent with ADL's Yes Is patient alert and oriented? Yes Discharge Plan Home Transportation Arrangement Family Referrals Initiated None needed Review Status In Process
--- NOTE | 2019-03-07 11:00 | PC.NURSE ---
Pt is dressed and ready for discharge home with Spouse. Pt's Spouse is on his way to pick her up and take her home. Reviewed d/c instructions with Pt -discussed d/c meds, time of last dose, no new prescriptions so discussed tylenol and ibuprofen dosing. Reminded Pt to not lift greater than 10-15 pounds, reviewed stroke education, signs and symptoms of infection, and discussed follow up appointment. Pt denied further questions and was taken out via w/c to POV with all belongings.
--- NOTE | 2019-03-24 10:02 | PC.NURSE ---
late entry: Lactated Ringers stopped 03/06 1930
== END 2019-03-07 11:47 | disposition home or self-care (01) ==
LOC: ED 13:35 → AC 14:37
PROVIDERS: Emergency Medicine; Admitting Provider Surgery; Emergency Provider Internal Medicine; PCP Internal Medicine; Visit Provider Surgery
PROC: (CPT 44950; principal; 2019-03-06 17:30)
DX: K35.30 Acute appendicitis with localized peritonitis, without perforation or gangrene (principal); R10.31 Right lower quadrant pain; I10 Essential (primary) hypertension; E78.5 Hyperlipidemia, unspecified
CPT/HCPCS: 44970; 36415; 74177; 80053; 83690; 85025; 85610; 85730; 87070; 87075; 87205; 93005; 96361; 96365; 96375; 96376; 99219; 99283; 99285; G0378; J0330; J1100; J1170; J1885; J2270; J2405; J2543; J2704; J3010; Q9967

== ENCOUNTER → 2020-02-25 19:31 | Outpatient (ROUT) | payer MEDICARE, OTHER, SELFPAY ==
[2019-03-06 16:11] VITALS: BMI 20.7
[2020-02-25 19:56] LABS: Aspartate Aminotransferase 31 IU/L (14-36); BUN Creatinine Ratio 28.6 (6-22); Blood Urea Nitrogen 20 mg/dL (7-17); Calcium 9.7 mg/dL (8.4-10.2); Carbon Dioxide 31 mmol/L (22-32); Chloride 94 mmol/L (98-107); Cholesterol 206 mg/dL (140-199); Estimated Glomerular Filt Rate > 60.0 mL/min (>60); Glucose 105 mg/dL (80-110); HDL Cholesterol 71 mg/dL (40-60); HEMOLYSIS < 15 (0-50); LDL Cholesterol Calculated 118 mg/dL (<100); Potassium 4.7 mmol/L (3.4-5.1); Sodium 132 mmol/L (137-145); Triglycerides 84 mg/dL (35-150)
[2020-02-25 19:57] LABS: Hemoglobin A1C% w Est Avg Glu 6.1 % (4.0-6.0)
== END ==
PROVIDERS: PCP Internal Medicine; Visit Provider Internal Medicine
DX: I10 Essential (primary) hypertension (principal)
CPT/HCPCS: 80048; 80061; 83036; 84450

== ENCOUNTER → 2020-05-08 13:07 | Outpatient (CLI) | payer MEDICARE, OTHER, SELFPAY ==
[2019-03-06 16:11] VITALS: BMI 20.7
--- NOTE | 2020-05-08 | DI.MRI.S_ITS ---
PROCEDURE: MR SHOULDER LT WO CON INDICATIONS: Pain in left shoulder TECHNIQUE: Noncontrast oblique coronal T2 fast spin echo with fat saturation, oblique sagittal T1 spin echo and T2 fast spin echo with fat saturation, axial T1 spin echo and T2 fast spin echo with fat saturation through the shoulder. COMPARISON: [facility], CR, XR SHOULDER 2+ VIEWS LEFT, 05/05/2020, 13:41. FINDINGS: Image quality: Excellent. Rotator cuff: There is full-thickness tear of the supraspinatus tendon measuring 6 cm transverse x 7 mm AP. Tear the supraspinatus extending to the footprint. [id number] tear of the infraspinatus tendon is seen involving the articular surface. The subscapularis tendon appears intact with mild tendon thickening consistent with tendinosis. Sagittal images demonstrate no rotator cuff muscle atrophy. Bones and bursae: No acute fractures. Old fracture/deformity of the proximal humerus at the junction of metaphysis and diaphysis. Mild acromioclavicular and moderate glenohumeral joint degeneration. The acromion demonstrates conventional anatomy, without an os acromiale. There is moderate subacromial-subdeltoid bursal fluid and small subcoracoid bursal fluid consistent with bursitis. Capsule and soft tissues: There is degenerative fraying of the glenoid lobe labrum. In the absence of intra-articular contrast, the glenohumeral ligaments appear intact. The long head of the biceps tendon demonstrates normal location and morphology. The rotator interval appears normal, without fibrosis. The coracohumeral ligament is normal in thickness. IMPRESSION: 1. Full-thickness tear of the distal supraspinatus tendon. 2. Partial thickness tear of the infraspinatus tendon. 3. Subscapularis tendinitis. 4. Subacromial-subdeltoid and subcoracoid bursal fluid consistent with bursitis. 5. Degenerative fraying of the glenoid labrum. 6. Moderate glenohumeral joint degeneration and mild acromioclavicular joint degeneration. 7. Old healed fracture/deformity of the proximal humerus. Dictated by: Angie Michaud M.D. on 05/10/2020 at 10:02 Approved by: Angie Michaud M.D. on 05/10/2020 at 18:35
== END ==
PROVIDERS: PCP Internal Medicine; Referring Provider Orthopaedic Surgery; Visit Provider Orthopaedic Surgery
DX: M25.512 Pain in left shoulder (principal); M75.122 Complete rotator cuff tear or rupture of left shoulder, not specified as traumatic; M19.012 Primary osteoarthritis, left shoulder; M67.912 Unspecified disorder of synovium and tendon, left shoulder; M75.42 Impingement syndrome of left shoulder
CPT/HCPCS: 73221

== ENCOUNTER 2020-05-21 15:06 | Emergency (ER) | payer MEDICARE, OTHER, SELFPAY ==
[2019-03-06 16:11] VITALS: BMI 20.7
[2020-05-21] VITALS (11 sets, daily range): BP systolic 146–209; BP diastolic 63–100; PULSE 54–80; RESP 18; TEMP 36.9; O2SAT 93–99; BMI 21.6
--- NOTE | 2020-05-21 15:23 | ED.ABDPAIN ---
HPI - Abdominal Pain General Chief Complaint: Abdominal Pain Stated Complaint: Diverticulitis/Pain/Blood in urine Time Seen by Provider: 05/21/20 15:23 Source: patient and family Mode of arrival: Ambulatory Limitations: no limitations History of Present Illness HPI narrative: 80-year-old female former smoker with history of hyperlipidemia presents at the request of her primary care provider for further evaluation of left lower quadrant pain. She had been seen and evaluated in his office and has been treated for diverticulitis based on history and exam. She has been taking Cipro and Flagyl but today seems to have worsening pain in may have had some blood in her urine. She has had nausea but denies any vomiting. She denies any significant change in her appetite. She states her pain largely seems to be better with rest and worse with motion and radiates around her left flank. She denies fever or chills MD complaint: abdominal pain and flank pain Onset (ago): day(s) Pain Consistency: constant Location: LLQ Severity: moderate Quality: cramping and aching Radiation: L flank Relieving factors: rest Exacerbating factors: movement Associated symptoms: nausea and hematuria Related Data Home Medications Medication Instructions Recorded Confirmed timolol maleate 1 drp EYE-BOTH BEDTIME #0 04/12/16 03/17/19 zolpidem 2.5 mg PO BEDTIME PRN #0 04/12/16 03/17/19 Allertec 10 mg PO DAILY 03/06/19 03/17/19 CoQ-10 300 mg PO 3XW 03/06/19 03/17/19 calcium citrate-vitamin D3 2 tab PO DAILY 03/06/19 03/17/19 cyanocobalamin (vitamin B-12) 1,000 mcg PO DAILY 03/06/19 03/17/19 [Vitamin B-12] folic acid 0.4 mg PO DAILY 03/06/19 03/17/19 ibuprofen 600 mg PO Q6HP PRN 03/06/19 03/17/19 rosuvastatin 5 mg PO DAILY 03/06/19 03/17/19 spironolactone 50 mg PO BID 03/06/19 03/17/19 Previous Rx's Medication Instructions Recorded hydrocodone-acetaminophen 1 tab PO Q4-6H PRN #10 tab 05/21/20 ketorolac 10 mg PO Q6H PRN #14 tab 05/21/20 ondansetron 4 mg PO TID-QID PRN #10 tab 05/21/20 tamsulosin [Flomax] 0.4 mg PO DAILY #10 cap 05/21/20 Allergies Allergy/AdvReac Type Severity Reaction Status Date / Time No Known Drug Allergies Allergy Verified 05/21/20 15:29 Review of Systems Constitutional Constitutional: Denies chills, Denies fatigue, Denies fever(s), Denies frequent falls, Denies lethargy and Denies weakness Eyes Eyes: Denies change in vision, Denies eye discharge, Denies irritation and Denies loss of vision ENT Ears, Nose, Mouth, and Throat: Denies change in voice, Denies dizziness, Denies neck pain, Denies sore throat and Denies throat swelling Cardiovascular Cardiovascular: Denies chest pain, Denies irregular heart rhythm, Denies lightheadedness, Denies palpitations, Denies dyspnea, Denies dyspnea on exertion and Denies orthopnea Respiratory Respiratory: Denies cough, Denies dyspnea, Denies dyspnea on exertion and Denies wheezing Gastrointestinal Gastrointestinal: Reports abdominal pain, Denies change in bowel habits, Denies diarrhea, Reports nausea and Denies vomiting Genitourinary Genitourinary: Reports hematuria Genitourinary: Reports hematuria Musculoskeletal Musculoskeletal: Denies neck pain and Denies numbness Integumentary/Breasts Skin/Breast: Denies pruritus, Denies erythema, Denies rash and Denies wounds Neurologic Neurologic: Denies behavioral changes, Denies confusion, Denies dizziness, Denies frequent falls, Denies loss of vision, Denies numbness and Denies weakness Psychiatric Psychiatric: Denies anxiety, Denies behavioral changes, Denies confusion, Denies depression, Denies homicidal ideation and Denies suicidal ideation Endocrine Endocrine: Denies fatigue, Denies flushing and Denies palpitations Hematologic/Lymphatic Hematologic/Lymphatic: Denies easy bruising Allergic/Immunologic Allergic/Immunologic: Denies urticaria, Denies throat swelling and Denies wheezing Patient History Medical History Glaucoma HTN (hypertension) Hyperlipidemia Surgical History Status post cholecystectomy Status post partial mastectomy Social History household members: spouse Smoking Status: Former smoker Smoking Status: Former smoker alcohol intake frequency: 0-2 drinks per day Alcohol type: wine Substance Use Type: does not use Exam Narrative Exam Narrative: GENERAL: [80] year old patient appears stated age. Well-nourished, well-developed patient, in mild distress. HEAD: Atraumatic. Normocephalic. EYES: Pupils equal round and reactive. Extraocular motions intact. No scleral icterus. No injection or drainage. ENT: Nose without bleeding, purulent drainage. Throat without erythema, tonsillar hypertrophy or exudate. Airway patent. NECK: Trachea midline. Non tender CARDIOVASCULAR: Regular rate and rhythm without murmurs, gallops, or rubs. RESPIRATORY: Clear to auscultation. Breath sounds equal bilaterally. No wheezes, rales, or rhonchi. GASTROINTESTINAL: Abdomen soft, mild tenderness in left lower quadrant, nondistended. EXTREMITIES: No edema or joint tenderness. BACK: Nontender without deformity or crepitance. No flank tenderness. NEURO: AOx3. SKIN: No rash or erythema of visible areas Initial Vital Signs Initial Vital Signs: Vital Signs Temperature 98.4 F 05/21/20 15:29 Pulse Rate 67 05/21/20 15:29 Respiratory Rate 18 05/21/20 15:29 Blood Pressure 151/72 H 05/21/20 15:29 Pulse Oximetry 98 05/21/20 15:29 Course Orders Ordered: ED Orders 05/21/20 15:15 Urine Microscopic Stat 05/21/20 15:45 Complete Blood Count AUTO DIFF Stat Comprehensive Metabolic Panel Stat Lipase Stat Partial Thromboplastin Time Stat Prothrombin Time INR Stat 05/21/20 16:14 CT abdomen pelvis w con Stat Discontinued Medications Hydrocodone Bitart/Acetaminophen (Hydrocodone/Acet 5/325 Prepack) 1 bottle MISC SEEINSTR ONE Stop: 05/21/20 18:20 Last Admin: 05/21/20 18:41 Dose: 1 bottle Documented by: BILL Sodium Chloride (Normal Saline 0.9%) 500 mls @ 1,000 mls/hr IV BOLUS ONE Stop: 05/21/20 17:34 Last Infusion: 05/21/20 17:50 Dose: 0 mls/hr Documented by: Admin: 05/21/20 17:18 Dose: 1,000 mls/hr Documented by: RICARDO Ketorolac Tromethamine (Ketorolac 60 Mg/2 Ml Vial) 15 mg IV NOW ONE Stop: 05/21/20 17:06 Last Admin: 05/21/20 17:17 Dose: 15 mg Documented by: RICARDO Ketorolac Tromethamine (Ketorolac 10mg Prepack) 1 bottle MISC SEEINSTR ONE Stop: 05/21/20 18:20 Last Admin: 05/21/20 18:41 Dose: 1 bottle Documented by: BILL Ondansetron HCl (Ondansetron 4 Mg Odt Prepack) 1 bottle MISC SEEINSTR ONE Stop: 05/21/20 18:20 Last Admin: 05/21/20 18:41 Dose: 1 bottle Documented by: BILL Tamsulosin HCl (Tamsulosin 0.4 Mg Capsule) 0.4 mg PO NOW ONE Stop: 05/21/20 18:20 Last Admin: 05/21/20 18:41 Dose: 0.4 mg Documented by: BILL Vital Signs Vital signs: Vital Signs - 8 hr 05/21/20 15:29 05/21/20 15:30 05/21/20 15:32 Temperature 98.4 F Pulse Rate 67 57 L Respiratory Rate 18 Blood Pressure 151/72 H 195/77 H Pulse Oximetry 98 99 99 05/21/20 15:54 05/21/20 16:00 05/21/20 16:01 Temperature Pulse Rate 59 L 54 L 56 L Respiratory Rate Blood Pressure 209/100 H 173/77 H Pulse Oximetry 98 98 98 05/21/20 16:32 05/21/20 17:00 05/21/20 18:13 Temperature Pulse Rate 62 60 80 Respiratory Rate Blood Pressure Pulse Oximetry 98 97 93 05/21/20 18:14 05/21/20 18:30 Temperature Pulse Rate 76 56 L Respiratory Rate Blood Pressure 172/84 H 146/63 H Pulse Oximetry 96 97 MDM - Abdominal Pain Lab Data Result diagrams: 05/21/20 15:45 05/21/20 15:45 Labs: Lab Results 05/21/20 05/21/20 05/21/20 Range/Units 15:15 15:45 15:45 WBC 12.5 H (4.5-11.0) X10^3/uL RBC 3.76 L (4.0-5.2) X10^6/uL Hgb 12.8 (12.0-16.0) g/dL Hct 37.2 (36-46) % MCV 98.9 (80-100) fL MCH 34.0 (26-34) PG MCHC 34.4 (30-36) % RDW 12.8 (11.6-14.8) % Plt Count 305 (150-400) X10^3/uL Neut % (Auto) 78.7 H (50-75) % Lymph % (Auto) 8.9 L (25-40) % [place] % (Auto) 11.2 (3-14) % Eos % (Auto) 0.5 L (2-4) % Baso % (Auto) 0.7 (0-2) % Neut # (Auto) 9900 H (2939-3717) /uL Lymph # (Auto) 1100 (6459-3532) /uL [place] # (Auto) 1400 H (0-900) /uL Eos # (Auto) 100 (0-450) /uL Baso # (Auto) 100 (0-100) /uL PT 13.6 H (10.1-12.7) SECONDS INR 1.2 (0.9-1.3) APTT 29 (26.4-36.2) SECONDS Sodium (137-145) mmol/L Potassium (3.4-5.1) mmol/L Chloride (98-107) mmol/L Carbon Dioxide (22-32) mmol/L BUN (7-17) mg/dL Creatinine (0.52-1.04) mg/dL Estimated GFR (>60) mL/min BUN/Creatinine Ratio (6-22) Glucose (80-110) mg/dL Calcium (8.4-10.2) mg/dL Total Bilirubin (0.2-1.3) mg/dL AST (14-36) IU/L ALT (<35) IU/L Alkaline Phosphatase (38-126) U/L Total Protein (6.3-8.2) g/dL Albumin (3.5-5.0) g/dL Globulin (1.7-4.1) g/dL Albumin/Globulin Ratio (1.0-2.8) Lipase (23-300) U/L Urine RBC 30-100/hpf H (0-5/HPF) Urine WBC 0-1/hpf (0-5/HPF) Ur Squamous Epith Cells 0-1 /hpf (0-5/HPF) Ur Transition Epith Cell 0-1/hpf (0-5/HPF) Urine Bacteria None seen (None) Ur Culture Indicated? Cult not indicated 05/21/20 Range/Units 15:45 WBC (4.5-11.0) X10^3/uL RBC (4.0-5.2) X10^6/uL Hgb (12.0-16.0) g/dL Hct (36-46) % MCV (80-100) fL MCH (26-34) PG MCHC (30-36) % RDW (11.6-14.8) % Plt Count (150-400) X10^3/uL Neut % (Auto) (50-75) % Lymph % (Auto) (25-40) % [place] % (Auto) (3-14) % Eos % (Auto) (2-4) % Baso % (Auto) (0-2) % Neut # (Auto) (6344-8126) /uL Lymph # (Auto) (7513-6191) /uL [place] # (Auto) (0-900) /uL Eos # (Auto) (0-450) /uL Baso # (Auto) (0-100) /uL PT (10.1-12.7) SECONDS INR (0.9-1.3) APTT (26.4-36.2) SECONDS Sodium 126 L (137-145) mmol/L Potassium 4.2 (3.4-5.1) mmol/L Chloride 90 L (98-107) mmol/L Carbon Dioxide 29 (22-32) mmol/L BUN 21 H (7-17) mg/dL Creatinine 0.92 (0.52-1.04) mg/dL Estimated GFR 59.0 L (>60) mL/min BUN/Creatinine Ratio 22.8 H (6-22) Glucose 125 H (80-110) mg/dL Calcium 10.2 (8.4-10.2) mg/dL Total Bilirubin 0.7 (0.2-1.3) mg/dL AST 36 (14-36) IU/L ALT 15 (<35) IU/L Alkaline Phosphatase 68 (38-126) U/L Total Protein 8.3 H (6.3-8.2) g/dL Albumin 4.2 (3.5-5.0) g/dL Globulin 4.1 (1.7-4.1) g/dL Albumin/Globulin Ratio 1.0 (1.0-2.8) Lipase 27 (23-300) U/L Urine RBC (0-5/HPF) Urine WBC (0-5/HPF) Ur Squamous Epith Cells (0-5/HPF) Ur Transition Epith Cell (0-5/HPF) Urine Bacteria (None) Ur Culture Indicated? Point of care testing: Urine Dip Bedside Urine Glucose Negative Bedside Urine Bilirubin - Negative Bedside Urine Ketone - Negative Urine Specific [place] 1.015 Bedside Urine Occult Blood +++ Bedside Urine pH 6 Bedside Urine Protein +/- 15 Bedside Urine Urobilinogen - Negative Bedside Urine Nitrite - Negative Bedside Urine Leukocytes - Negative Esterase Imaging Data CT scan - abdomen/pelvis: Radiologist's Impression: Chart Viewer Diagnostics DATE TYPE STATUS REF RANGE/AUTHOR Hx Today 16:14 Mehran Flores 05/08/20 00:00 Demarcus Michaud 03/06/19 13:57 Steve Vigil 02/12/19 00:00 Brenda Lerma, F1 [facility] ER, Main ED 165.1cm 58.967kg BMI: 21.6kg/m? Abdominal Pain Search Chart No Data to Display Total Pending Discharge NonFormulary Not Included in Conflicts ONSET Today 18:30 Brenda Lerma F [address] Scan ReportSigned Patient: Brenda Lerma EMR#: [id number]: 2Acct:[id number]/Sex: 80 / FDate of Service: 05/21/20Loc: EDAccession Number: [id number] Procedure: CT abdomen pelvis w con Ordering Provider: Charles Quick D.O. PROCEDURE: CT ABDOMEN PELVIS W CON INDICATIONS: severe LLQ pain, treated for diverticulitis TECHNIQUE: After the administration of intravenous contrast, 5 mm thick sections acquired from the diaphragm to the symphysis. 5 mm coronal and sagittal reformats were acquired. For radiation dose reduction, the following was used: automated exposure control, adjustment of mA and/or kV according to patient size. COMPARISON: [facility], CT, CT ABDOMEN PELVIS W CON, 03/06/2019, 14:16. FINDINGS: Image quality: Excellent. ABDOMEN: Lung bases: Lung bases are clear. Heart size is normal. Right mastectomy change can be seen. Solid organs: Liver is normal in size and enhancement. Gallbladder demonstrates calcification versus stones at the gallbladder fundus, as on series 2 image 38. No additional gallbladder abnormality is seen by CT. Biliary system is non dilated. Pancreas enhances normally. Spleen is normal in size and enhancement. There is a simple appearing splenic cyst seen on the right side measuring 2.5 cm. No adrenal nodules. There is an obstructing stone seen within the distal left ureter, as on series 2, image 59 and on series 4 image 31 that measures up to 6 mm. There is associated moderate to prominent left-sided hydronephrosis and hydroureter. Moderate left-sided perinephric fat stranding can be seen. Several nonobstructing kidney stones can be seen on both sides, with the largest on the right measuring up to 9 mm and the largest on the left measuring up to 3 mm. No right-sided hydronephrosis is seen. Simple appearing bilateral renal cysts are seen, the largest on the right anteriorly measuring 6.7 cm. Peritoneum and bowel: In this patient with this given history, scrutiny is given to the sigmoid colon. Sigmoid colon given straits minimal diverticulosis, without findings of active diverticulitis. No dilated loops of small bowel are seen. A [id number] amount of stool can be seen within the colon. No free air or significant free fluid can be seen. Prior appendectomy. Nodes and vessels: No retroperitoneal or mesenteric adenopathy by size criteria. Aorta and inferior vena cava are normal in size. Miscellaneous: No ventral hernias. PELVIS: Genitourinary: Bladder wall thickness is normal. The uterus appears normal for age. No adnexal masses are seen. Miscellaneous: No enlarged inguinal or pelvic lymph nodes are seen. There is a fat-containing left inguinal hernia seen. Bones: No suspicious bony lesions. No vertebral body compression fractures. IMPRESSION: Negative for diverticulitis. There is a 6 mm obstructing stone seen within the distal left ureter, with associated moderate to prominent left-sided hydronephrosis and hydroureter. Moderate left-sided perinephric fat stranding can also be seen. Numerous nonobstructing bilateral renal stones are seen. Incidental note is made of: Right mastectomy Calcification versus stones noted at the gallbladder fundus Bilateral simple appearing renal cysts Prior appendectomy Note: Case discussed by telephone with Dr. Quick at 4:11 p.m. [place] time on 05/21/2020. Dictated by: Mehran Flores M.D. on 05/21/2020 at 16:06 Approved by: Mehran Flores M.D. on 05/21/2020 at 16:13 [facility] Narrative Medical decision making narrative: Patient with worsening left lower quadrant pain and now hematuria has near complete resolution of symptoms with Toradol. CT shows a 6 mm obstructing stone in the left UVJ. Her symptoms are controlled, she shows no sign of infection in her urine and as appropriate renal function. She is given prescriptions and pre PACs with instruction to follow-up closely with her primary care provider. She has been given return precautions and understands the need to return for worsening symptoms, fever, chills Discharge Plan Departure Patient Disposition: Home Clinical Impression: Kidney calculi Instructions: DI for Kidney Stones Activity Restrictions/Additional Instructions: *You have been diagnosed with [ left sided 6mm kidney stone ] *What to do: *Take medications as directed *Follow up with your primary care provider in 2-3 days, call for an appointment. Let them know you were seen in the Emergency Department and that we ask that you be seen in follow up *Return to ER if you should have any new, worsening or concerning symptoms, such as [increasing pain, fever, chills, nausea, vomiting or other bothersome symptoms] Prescriptions: New hydrocodone-acetaminophen 5-325 mg tablet 1 tab PO Q4-6H PRN (Reason: pain) Qty: 10 RF: 0 ketorolac 10 mg tablet 10 mg PO Q6H PRN (Reason: pain) Qty: 14 RF: 0 tamsulosin [Flomax] 0.4 mg capsule 0.4 mg PO DAILY Qty: 10 RF: 0 ondansetron 4 mg tablet,disintegrating 4 mg PO TID-QID PRN (Reason: nausea and vomiting) Qty: 10 RF: 0 No Action timolol maleate 0.5 % drops 1 drp EYE-BOTH BEDTIME Qty: 0 RF: 0 zolpidem 5 MG tablet 2.5 mg PO BEDTIME PRN (Reason: Sleep) Qty: 0 RF: 0 rosuvastatin 5 mg tablet 5 mg PO DAILY RF: 0 spironolactone 50 mg tablet 50 mg PO BID RF: 0 Allertec 10 mg 10 mg PO DAILY RF: 0 cyanocobalamin (vitamin B-12) [Vitamin B-12] 1,000 mcg Tablet 1,000 mcg PO DAILY RF: 0 calcium citrate-vitamin D3 200 mg calcium -250 unit Tablet 2 tab PO DAILY RF: 0 CoQ-10 300 mg 300 mg PO 3XW RF: 0 ibuprofen 600 MG tablet 600 mg PO Q6HP PRN (Reason: pain) RF: 0 folic acid 400 mcg Tablet 0.4 mg PO DAILY RF: 0 Referrals: Binh Pandya MD [Physician] - Alex Clay MD [Primary Care Provider] -
[2020-05-21 15:56] LABS: Add Manual Diff / Slide Review NO; Basophils Absolute Auto 100 /uL (0-100); Basophils Percent Auto 0.7 % (0-2); Eosinophils Absolute Auto 100 /uL (0-450); Eosinophils Percent Auto 0.5 % (2-4); Hematocrit 37.2 % (36-46); Hemoglobin 12.8 g/dL (12.0-16.0); Lymphocytes Absolute Auto 1100 /uL (1100-4500); Lymphocytes Percent Auto 8.9 % (25-40); Mean Corpuscular HGB Conc 34.4 % (30-36); Mean Corpuscular Volume 98.9 fL (80-100); Monocytes Absolute Auto 1400 /uL (0-900); Monocytes Percent Auto 11.2 % (3-14); Neutrophils Absolute Auto 9900 /uL (1500-7000); Neutrophils Percent Auto 78.7 % (50-75); Platelet Count 305 X10^3/uL (150-400); Red Blood Cell Count 3.76 X10^6/uL (4.0-5.2); Red Cell Distribution Width 12.8 % (11.6-14.8); White Blood Cell Count 12.5 X10^3/uL (4.5-11.0)
[2020-05-21 16:05] LABS: INR 1.2 (0.9-1.3); Prothrombin Time 13.6 SECONDS (10.1-12.7)
[2020-05-21 16:08] LABS: PTT Partial Thromboplastin Tim 29 SECONDS (26.4-36.2)
[2020-05-21 16:09] LABS: Alanine Aminotransferase 15 IU/L (<35); Albumin 4.2 g/dL (3.5-5.0); Alkaline Phosphatase 68 U/L (38-126); Aspartate Aminotransferase 36 IU/L (14-36); BUN Creatinine Ratio 22.8 (6-22); Bilirubin Total 0.7 mg/dL (0.2-1.3); Blood Urea Nitrogen 21 mg/dL (7-17); Calcium 10.2 mg/dL (8.4-10.2); Carbon Dioxide 29 mmol/L (22-32); Chloride 90 mmol/L (98-107); Globulin 4.1 g/dL (1.7-4.1); Glucose 125 mg/dL (80-110); HEMOLYSIS 47 (0-50); Lipase 27 U/L (23-300); Potassium 4.2 mmol/L (3.4-5.1); Sodium 126 mmol/L (137-145); Total Protein 8.3 g/dL (6.3-8.2)
[2020-05-21 16:11] LABS: Bacteria Urine None Seen
--- NOTE | 2020-05-21 16:14 | DI.CT.S_ITS ---
PROCEDURE: CT ABDOMEN PELVIS W CON INDICATIONS: severe LLQ pain, treated for diverticulitis TECHNIQUE: After the administration of intravenous contrast, 5 mm thick sections acquired from the diaphragm to the symphysis. 5 mm coronal and sagittal reformats were acquired. For radiation dose reduction, the following was used: automated exposure control, adjustment of mA and/or kV according to patient size. COMPARISON: [facility], CT, CT ABDOMEN PELVIS W CON, 03/06/2019, 14:16. FINDINGS: Image quality: Excellent. ABDOMEN: Lung bases: Lung bases are clear. Heart size is normal. Right mastectomy change can be seen. Solid organs: Liver is normal in size and enhancement. Gallbladder demonstrates calcification versus stones at the gallbladder fundus, as on series 2 image 38. No additional gallbladder abnormality is seen by CT. Biliary system is non dilated. Pancreas enhances normally. Spleen is normal in size and enhancement. There is a simple appearing splenic cyst seen on the right side measuring 2.5 cm. No adrenal nodules. There is an obstructing stone seen within the distal left ureter, as on series 2, image 59 and on series 4 image 31 that measures up to 6 mm. There is associated moderate to prominent left-sided hydronephrosis and hydroureter. Moderate left-sided perinephric fat stranding can be seen. Several nonobstructing kidney stones can be seen on both sides, with the largest on the right measuring up to 9 mm and the largest on the left measuring up to 3 mm. No right-sided hydronephrosis is seen. Simple appearing bilateral renal cysts are seen, the largest on the right anteriorly measuring 6.7 cm. Peritoneum and bowel: In this patient with this given history, scrutiny is given to the sigmoid colon. Sigmoid colon given straits minimal diverticulosis, without findings of active diverticulitis. No dilated loops of small bowel are seen. A [id number] amount of stool can be seen within the colon. No free air or significant free fluid can be seen. Prior appendectomy. Nodes and vessels: No retroperitoneal or mesenteric adenopathy by size criteria. Aorta and inferior vena cava are normal in size. Miscellaneous: No ventral hernias. PELVIS: Genitourinary: Bladder wall thickness is normal. The uterus appears normal for age. No adnexal masses are seen. Miscellaneous: No enlarged inguinal or pelvic lymph nodes are seen. There is a fat-containing left inguinal hernia seen. Bones: No suspicious bony lesions. No vertebral body compression fractures. IMPRESSION: Negative for diverticulitis. There is a 6 mm obstructing stone seen within the distal left ureter, with associated moderate to prominent left-sided hydronephrosis and hydroureter. Moderate left-sided perinephric fat stranding can also be seen. Numerous nonobstructing bilateral renal stones are seen. Incidental note is made of: Right mastectomy Calcification versus stones noted at the gallbladder fundus Bilateral simple appearing renal cysts Prior appendectomy Note: Case discussed by telephone with Dr. Quick at 4:11 p.m. [place] time on 05/21/2020. Dictated by: Mehran Flores M.D. on 05/21/2020 at 16:06 Approved by: Mehran Flores M.D. on 05/21/2020 at 16:13
[2020-05-21 16:21] LABS: Culture Indicated Urine Cult Not Indicated; RBC Urine 30-100/HPF (0-5/HPF); Squamous Epithelial Cell Urine 0-1 /HPF (0-5/HPF); Transitional Epi Cells Urine 0-1/HPF (0-5/HPF); WBC Urine 0-1/HPF (0-5/HPF)
[2020-05-21] MEDS: KETOROLAC 60 MG/2 ML VIAL 15 MG IV (17:17)
[2020-05-21] MEDS: SODIUM CHLORIDE 0.9% 500 ML 1000 ML IV (17:18)
[2020-05-21] MEDS: ONDANSETRON 4 MG ODT PREPACK 1 BOTTLE MISC (18:41)
[2020-05-21] MEDS: HYDROCODONE/ACET 5/325 PREPACK 1 BOTTLE MISC (18:41)
[2020-05-21] MEDS: KETOROLAC 10MG PREPACK 1 BOTTLE MISC (18:41)
[2020-05-21] MEDS: TAMSULOSIN 0.4 MG CAPSULE PO (18:41)
== END 2020-05-21 18:59 | disposition home or self-care (01) ==
PROVIDERS: Emergency Provider Emergency Medicine; PCP Internal Medicine
DX: N20.0 Calculus of kidney (principal); E78.5 Hyperlipidemia, unspecified; R11.0 Nausea; R31.9 Hematuria, unspecified; I10 Essential (primary) hypertension; H40.9 Unspecified glaucoma
CPT/HCPCS: 36415; 74177; 80053; 81003; 81015; 83690; 85025; 85610; 85730; 96361; 96374; 99281; 99284; J1885; Q9967

== ENCOUNTER → 2020-05-27 15:09 | Outpatient (CLI) | payer MEDICARE, OTHER, SELFPAY ==
[2019-03-06 16:11] VITALS: BMI 20.7
--- NOTE | 2020-05-27 15:12 | DI.RAD.S_ITS ---
PROCEDURE: XR KUB INDICATIONS: Kidney stones TECHNIQUE: One view of the abdomen acquired. COMPARISON: None. FINDINGS: Surgical changes and devices: None. Bowel: Bowel gas pattern is normal. Moderate stool although no definite transition point is seen. Soft tissues: No suspicious abdominal calcifications. Visualized solid organ contours appear normal in size. Bones: No suspicious bony lesions. Mild bilateral hip joint degeneration and spondylitic changes. IMPRESSION: No specific evidence of bowel obstruction seen at this time although if the patient's symptoms do not improve, continued surveillance with abdominal series radiographs could be performed. Moderate stool. Dictated by: Keny Cardenas M.D. on 05/27/2020 at 15:29 Approved by: Keny Cardenas M.D. on 05/27/2020 at 15:29
== END ==
PROVIDERS: PCP Internal Medicine; Referring Provider Specialist; Visit Provider Specialist
DX: N20.0 Calculus of kidney (principal); M16.0 Bilateral primary osteoarthritis of hip
CPT/HCPCS: 74018

== ENCOUNTER → 2020-06-04 09:44 | Outpatient (CLI) | payer MEDICARE, OTHER, SELFPAY ==
[2019-03-06 16:11] VITALS: BMI 20.7
[2020-06-04 10:09] LABS: COVID19 -Nasal RAPID Negative (Negative)
== END ==
PROVIDERS: PCP Internal Medicine; Visit Provider Specialist
DX: Z01.812 Encounter for preprocedural laboratory examination (principal); Z20.822 Contact with and (suspected) exposure to COVID-19
CPT/HCPCS: 87635; C9803

== ENCOUNTER 2020-06-07 16:25 | Day surgery (SDC) | payer MEDICARE, OTHER, SELFPAY ==
[2019-03-06 16:11] VITALS: BMI 20.7
[2020-06-04 07:40] VITALS: BMI 21.6
[2020-06-07 16:48] VITALS: BP 160/74; PULSE 88; RESP 16; TEMP 36.8; O2SAT 100; BMI 21.6
[2020-06-07] MEDS: LACTATED RINGERS 1,000 ML 42 ML IV ×2 (17:04→20:19)
--- NOTE | 2020-06-07 18:39 | PM.PREOP ---
Pre-operative Note Interval Note History & Physical reviewed/Exam performed by Physician: Yes Changes to H&P: No
[2020-06-07] MEDS: CEFAZOLIN 2 GM/100 ML FROZ.PIGGY IV (19:21)
--- NOTE | 2020-06-07 19:50 | SUR.OPER ---
Lithotomy on padded OR bed, head on pillow, arms secured on padded arm boards at <90 degrees abduction. Legs secured in padded yellow fins stirrups.
[2020-06-07] MEDS: IOPAMIDOL 15 ML VIAL INJ (19:55)
--- NOTE | 2020-06-07 20:12 | PM.OP.1 ---
Operative Date/Time/Diagnoses Date of procedure: 06/07/20 Time of procedure: 20:12 Pre-op diagnosis: 1.Obstructing 8 mm left distal ureteral calculus. 2. Multiple bilateral obstructing renal calculi Post-op diagnosis: same Procedure & Clinicians Procedure: 1. Cystoscopy and right retrograde pyelogram. 2. Right ureteroscopy. 3. Left ureteroscopic laser lithotripsy. Same procedure as scheduled: No (No stone identified in right ureter therefore no stent) Indications: 1. Obstructing 8 mm left distal ureteral calculus. 2. Multiple bilateral nonobstructing renal calculi. Surgeon: Binh Pandya Anesthesia Type: General Operative Notes Findings: Urethra and bladder urothelium appeared normal. There was trace trabeculation. Ureteral orifices were normal position bilaterally. There was no evidence of calculus or recent presents her past Malvin calculus within the right ureter. The index calculus was readily identified within the left distal ureter. Closure Type: not applicable Specimen(s): none sent Estimated Blood Loss (mL): 0 Blood products transfused: none Tourniquet time (min): 0 Procedure in detail: Patient was positioned supine was administered general anesthesia. She was then repositioned semi lithotomy and the lower abdomen, genitalia, and groin were then prepped and draped in sterile fashion. Twenty-two Haitian panendoscope was then passed into the lower urinary tract with the findings as described above. A 5 Haitian pollock catheter was then carefully inset UA is within the for orifice and advanced short distance proximally. A right retrograde pyelogram was then performed and no evidence of hydronephrosis or filling defect was seen. The system seemed to drain readily if plane removal of instrumentation. The semi rigid ureteral scope was then prepared and was carefully advanced into the right ureteral orifice and advanced proximally nearly to the level of the right UPJ, with the findings as described above. An intraoperative imaging the previously seen radiopaque density overlying the right mid sacroiliac region appeared to now be line outside of the ureter within the pelvic ring. This appearance and new positioning of this density raises suspicion of a possible calcified lymph node. Next, the semi-rigid ureteral scope was then carefully insinuated into the left ureteral orifice and advanced proximally. The index calculus was encountered in the expected location. A 273 micron laser fiber was then selected. All operating room personnel and patient were fitted with laser safety eyewear. Laser lithotripsy was then commenced with excellent subsequent stone fragmentation. Some of the material was cleared from within the ureter using hydrostatic and mechanical agitation. Much of the material was so fine, much like pummace, and lay dependently in the along the posterior ureteral lumen and resisted mobilization in clearance from the ureter proper. There was minimal evidence of ureteral trauma and therefore decision was made intraoperatively to not place a ureteral stent. The ureteral scope was then withdrawn from the left ureter and from the bladder. The panendoscope was then reintroduced and the bladder contents were drained. The patient was then repositioned in supine, awakened, and transferred to [facility] before transport to the PACU. Complications: none Post-operative Condition: stable Disposition: PACU Plan for aftercare: Discharge home
[2020-06-07 20:13] VITALS: BP 135/52; PULSE 60; RESP 7; TEMP 36.4; O2SAT 95
[2020-06-07 20:15] VITALS: BP 134/53; PULSE 73; RESP 15; O2SAT 98
[2020-06-07 20:21] VITALS: BP 137/51; PULSE 66; RESP 11; O2SAT 98
[2020-06-07] MEDS: FUROSEMIDE 20 MG/2 ML VIAL IV (20:26)
[2020-06-07 20:35] VITALS: BP 127/44; PULSE 72; RESP 11; O2SAT 96
[2020-06-07 21:00] VITALS: BP 143/63; PULSE 75; RESP 13; TEMP 36.8; O2SAT 97
--- NOTE | 2020-06-07 21:15 | SUR.PHASEII ---
pt urinated 450cc of pink urine with a fair amount of sand noted. This was collected per MD orders and sent to lab for further analysis.
--- NOTE | 2020-06-07 21:33 | SUR.PHASEII ---
addition sand recovered from recent output/
[2020-06-16 09:48] LABS: Stone Analysis Source URINARY TRACT
== END 2020-06-07 21:32 | disposition home or self-care (01) ==
PROVIDERS: PCP Internal Medicine; Referring Provider Specialist; Visit Provider Specialist
PROC: (CPT 52353; principal; 2020-06-07 15:45)
DX: N20.1 Calculus of ureter (principal); N20.0 Calculus of kidney; I10 Essential (primary) hypertension; E78.5 Hyperlipidemia, unspecified
CPT/HCPCS: 52353; 76000; 82365; J0690; J1100; J1940; J2405; J2704; J3010

== ENCOUNTER → 2020-06-17 15:41 | Outpatient (CLI) | payer MEDICARE, OTHER, SELFPAY ==
[2019-03-06 16:11] VITALS: BMI 20.7
--- NOTE | 2020-06-17 | DI.MRI.S_ITS ---
PROCEDURE: MR HIP RT WO CON INDICATIONS: UNILATERAL OSTEOPOROSIS OF RIGHT HIP TECHNIQUE: Noncontrast coronal T1 spin echo and STIR through the bony pelvis. Coronal and axial T2 fast spin echo with fat saturation, sagittal T1 spin echo, and oblique axial T2 fast spin echo with fat saturation through the hip. COMPARISON: None. FINDINGS: Image quality: Excellent. Bones and joints: There is significant marrow edema involving weight-bearing portion of right femoral head and femoral neck without discrete fracture line. Femoral head contour is intact with subtle geographic area in its weight-bearing portion concerning for developing avascular necrosis. Similar marrow edema involving adjacent right acetabular roof is also seen without discrete fracture line. Moderate to severe right hip joint osteoarthritic changes are seen with joint space narrowing, subchondral sclerosis and marginal osteophyte formation. Small to moderate amount of right hip joint effusion is seen, no definite intra-articular loose body. Tendons and ligaments: The gluteus medius and minimus tendons appear intact, without associated muscle atrophy. The nearby proximal iliotibial band also appears intact. The iliopsoas tendon appears intact, without adjacent bursal fluid collections or evidence for impingement syndrome. The origin of the hamstring tendon is intact at the ischial tuberosity, as well as the associated sacrotuberous ligament. The straight and reflected heads of the rectus femoris muscle origin appear intact, as well as the conjoint tendon. The ligamentum teres appears intact where visualized. Labrum and cartilage: There is suggestion of extensive right hip labral tear. Diffuse loss of articulating cartilages in femoral head is also seen. The alpha angle of the femur is within normal limits at less than 55 degrees. Soft tissues: Visualized muscles demonstrate normal bulk and internal signal. Quadratus femoris muscle demonstrates no internal edema to suggest ischiofemoral impingement. The proximal sciatic neurovascular bundle appears normal adjacent to the hamstring tendons. No free pelvic fluid. Bladder wall thickness is normal. Genitourinary structures and bowel loops appear normal where visualized. IMPRESSION: 1. Severe right hip joint osteoarthritis. Extensive marrow edema involving right femoral head and neck weight-bearing portion and edema involving adjacent right acetabular roof likely represent stress related changes. No definite fracture is seen. Subtle geographic area of signal abnormality involving weight-bearing portion of femoral head is seen concerning for early avascular necrosis. Radiographic and MR follow-up is recommended. 2. Suggestion of extensive right hip labral tear. New line 3. Moderate amount of right hip joint effusion, no gross intra-articular loose body. 3. No gross muscle or tendon signal abnormality is seen. Dictated by: Theo Ferreira M.D. on 06/17/2020 at 17:06 Approved by: Theo Ferreira M.D. on 06/17/2020 at 17:17
== END ==
PROVIDERS: PCP Internal Medicine; Referring Provider Orthopaedic Surgery; Visit Provider Orthopaedic Surgery
DX: M16.11 Unilateral primary osteoarthritis, right hip (principal)
CPT/HCPCS: 73721

== ENCOUNTER → 2020-06-23 13:14 | Outpatient (CLI) | payer MEDICARE, OTHER, SELFPAY ==
[2019-03-06 16:11] VITALS: BMI 20.7
--- NOTE | 2020-06-23 | DI.CT.S_ITS ---
PROCEDURE: CT ABDOMEN PELVIS WO CON INDICATIONS: Calculus of kidney TECHNIQUE: Noncontrast 5 mm thick sections acquired from the diaphragms to the symphysis. 5 mm thick coronal and sagittal reformats were then performed. For radiation dose reduction, the following was used: automated exposure control, adjustment of mA and/or kV according to patient size. COMPARISON: [facility], CT, CT ABDOMEN PELVIS W CON, 05/21/2020, 16:14. FINDINGS: Image quality: Excellent. Lung bases: Lung bases are clear. Heart size is normal. 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 Urinary system: Both kidneys are normal in size. 2 adjacent calculi, together measuring 5 x 4 x 8 mm, are seen in the distal left ureter just proximal to the ureterovesicular junction. There is mild left hydroureteronephrosis and mild left periureteral fat stranding. Nonobstructing calculi are seen in the superior pole of the left kidney and the inferior pole and interpolar region of the right kidney. A large exophytic cyst is seen arising from the anterior portion of the right kidney measuring 7.3 x 3.9 cm. A smaller cyst is seen in the inferior pole of the left kidney. Bladder wall thickness is normal; no calcified bladder stones. Other solid organs: Liver is normal in size. Gallbladder appears normal. Pancreas is normal in contours. Spleen is normal in size. Stable low-density benign-appearing lesion in the spleen. No adrenal nodules. Peritoneum and bowel: Unenhanced bowel loops demonstrate normal wall thickness and caliber. No free fluid or air. Nodes and vessels: No retroperitoneal or mesenteric adenopathy by size criteria. Aorta and inferior vena cava are normal in caliber. Abdominal wall: No ventral hernias. Pelvis: No free pelvic fluid. No inguinal hernias or adenopathy. The uterus is normal in size. Bones: No suspicious bony lesions. No vertebral body compression fractures. Mild degenerative changes are seen in the spine. IMPRESSION: 1. Distal left ureteral calculi together measure 5 x 4 mm in axial dimension and 8 mm craniocaudally with mild left hydroureteronephrosis. 2. Multiple additional nonobstructing renal calculi bilaterally. Dictated by: George Hart M.D. on 06/23/2020 at 13:45 Approved by: George Hart M.D. on 06/23/2020 at 13:59
== END ==
PROVIDERS: PCP Internal Medicine; Referring Provider Specialist; Visit Provider Specialist
DX: N13.2 Hydronephrosis with renal and ureteral calculous obstruction (principal)
CPT/HCPCS: 74176

== ENCOUNTER → 2020-06-24 14:59 | Outpatient (ROUT) | payer MEDICARE, OTHER, SELFPAY ==
[2019-03-06 16:11] VITALS: BMI 20.7
[2020-06-24 16:24] LABS: BUN Creatinine Ratio 32.9 (6-22); Blood Urea Nitrogen 23 mg/dL (7-17); Calcium 9.9 mg/dL (8.4-10.2); Carbon Dioxide 34 mmol/L (22-32); Estimated Glomerular Filt Rate > 60.0 mL/min (>60); Glucose 100 mg/dL (80-110); HEMOLYSIS < 15 (0-50); Potassium 4.4 mmol/L (3.4-5.1); Sodium 135 mmol/L (137-145)
[2020-06-24 16:50] LABS: Chloride 95 mmol/L (98-107)
== END ==
PROVIDERS: PCP Internal Medicine; Visit Provider Internal Medicine
DX: I10 Essential (primary) hypertension (principal)
CPT/HCPCS: 80048

== ENCOUNTER → 2020-07-02 14:15 | Outpatient (CLI) | payer MEDICARE, OTHER, SELFPAY ==
[2019-03-06 16:11] VITALS: BMI 20.7
[2020-07-02 15:19] LABS: Calcium 10.1 mg/dL (8.4-10.2); Uric Acid 4.8 mg/dL (2.5-6.2)
[2020-07-03 09:08] LABS: Parathyroid Hormone Int 26 pg/mL (15-65)
== END ==
PROVIDERS: PCP Internal Medicine; Referring Provider Specialist; Visit Provider Specialist
DX: Z87.442 Personal history of urinary calculi (principal)
CPT/HCPCS: 36415; 82310; 83970; 84550

== ENCOUNTER → 2020-07-05 15:08 | Outpatient (CLI) | payer MEDICARE, OTHER, SELFPAY ==
[2019-03-06 16:11] VITALS: BMI 20.7
--- NOTE | 2020-07-05 15:22 | DI.RAD.S_ITS ---
PROCEDURE: XR KUB INDICATIONS: History of nephrolithiasis TECHNIQUE: One view of the abdomen acquired. COMPARISON: [facility], CT, CT ABDOMEN PELVIS WO CON, 06/23/2020, 13:26. FINDINGS: Surgical changes and devices: None. Bowel: Bowel gas pattern is normal. Soft tissues: Calcifications are seen projecting over the expected locations of the kidneys bilaterally, compatible with known nephrolithiasis. No definite calcification is seen in the pelvis corresponding to the previously seen distal ureteral calculi. Visualized solid organ contours appear normal in size. Bones: No suspicious bony lesions. Degenerative changes are seen in the hips and lumbar spine. IMPRESSION: 1. Previously seen distal left ureteral calculi are not definitely redemonstrated radiographically. 2. Calcifications projecting over the bilateral kidneys are compatible with known nephrolithiasis. Dictated by: George Hart M.D. on 07/05/2020 at 16:49 Approved by: George Hart M.D. on 07/05/2020 at 16:54
[2020-07-05 15:52] LABS: Add Manual Diff / Slide Review NO; Basophils Absolute Auto 100 /uL (0-100); Basophils Percent Auto 1.2 % (0-2); Eosinophils Absolute Auto 400 /uL (0-450); Eosinophils Percent Auto 5.6 % (2-4); Hematocrit 34.6 % (36-46); Hemoglobin 11.5 g/dL (12.0-16.0); Lymphocytes Absolute Auto 1500 /uL (1100-4500); Lymphocytes Percent Auto 21.4 % (25-40); Mean Corpuscular HGB Conc 33.1 % (30-36); Mean Corpuscular Hemoglobin 33.4 PG (26-34); Mean Corpuscular Volume 100.7 fL (80-100); Monocytes Absolute Auto 600 /uL (0-900); Neutrophils Absolute Auto 4500 /uL (1500-7000); Neutrophils Percent Auto 62.8 % (50-75); Platelet Count 290 X10^3/uL (150-400); Red Blood Cell Count 3.43 X10^6/uL (4.0-5.2); White Blood Cell Count 7.2 X10^3/uL (4.5-11.0)
[2020-07-05 16:14] LABS: BUN Creatinine Ratio 36.1 (6-22); Blood Urea Nitrogen 22 mg/dL (7-17); Calcium 9.5 mg/dL (8.4-10.2); Carbon Dioxide 34 mmol/L (22-32); Chloride 92 mmol/L (98-107); Estimated Glomerular Filt Rate > 60.0 mL/min (>60); Glucose 97 mg/dL (80-110); HEMOLYSIS < 15 (0-50); Potassium 3.8 mmol/L (3.4-5.1); Sodium 130 mmol/L (137-145)
[2020-07-05 16:52] LABS: Hemoglobin A1C% w Est Avg Glu 6.1 % (4.0-6.0)
== END ==
PROVIDERS: PCP Internal Medicine; Referring Provider Specialist; Visit Provider Orthopaedic Surgery Adult Reconstructive Orthopaedic Surgery
DX: Z01.818 Encounter for other preprocedural examination (principal); Z01.812 Encounter for preprocedural laboratory examination; R73.9 Hyperglycemia, unspecified; Z87.442 Personal history of urinary calculi
CPT/HCPCS: 36415; 74018; 80048; 83036; 85025; 93005; 93010

== ENCOUNTER → 2020-08-16 14:03 | Outpatient (CLI) | payer MEDICARE, OTHER, SELFPAY ==
[2020-07-16 15:03] VITALS: BMI 20.7
[2020-08-16 15:58] LABS: COVID19 -Nasal RAPID Negative (Negative)
== END ==
PROVIDERS: PCP Internal Medicine; Visit Provider Physician Assistant
DX: Z20.822 Contact with and (suspected) exposure to COVID-19 (principal)
CPT/HCPCS: 87635; C9803

== ENCOUNTER 2020-08-18 08:45 | Day surgery (SDC) | payer MEDICARE, OTHER, SELFPAY ==
[2020-07-16 15:03] VITALS: BMI 20.7
[2020-08-18] VITALS (18 sets, daily range): BP systolic 87–161; BP diastolic 33–77; PULSE 40–58; RESP 12–20; TEMP 35.9–37.4; O2SAT 89–99; BMI 21.6
--- NOTE | 2020-08-18 | PATH_ITS ---
[facility] Accession Number: [id number] . 01 Material submitted: . femur - RIGHT FEMORAL HEAD . 01 Diagnosis: Right Femoral Head, Excision: Consistent with degenerative joint disease. MRV 08/25/2020 1024 Local . 01 Comment: Sections show thin/disrupted cartilage with underlying marrow fibrosis and mild chronic inflammation consistent with degenerative joint disease. . 01 Electronically signed: . Slava Morejon MD, Dermatopathologist NPI- [id number] . 01 Gross description: . The specimen is received in formalin, labeled right femoral head, and consists of a 5.0 x 5.0 x 4.5 cm femoral head with a smooth bone marrow and a 1.5 x 1.0 cm fovea centralis. The articular surface is killian and smooth with focal areas of eburnation. Sectioning reveals killian, trabeculated cut surfaces. [place] sections are submitted following decalcification in cassettes A1-A2. ([id number]) /FRR 08/25/2020 1109 Local . 01 Pathologist provided ICD-10: M16.11 . 01 CPT . 980512, [id number] Performed at: 01 [facility] [address] [place] [address] [address], [place], [place] [id number] MD Ronald Ac MD Phone: [phone]
--- NOTE | 2020-08-18 | DI.RAD.S_ITS ---
PROCEDURE: XR PELVIS 1-2V INDICATIONS: RIGHT ANTERIOR HIP TECHNIQUE: 1 view of the lower pelvis acquired. COMPARISON: None. FINDINGS: Bones: Patient is status post left hip hip arthroplasty, with hardware components in expected positions. The hip joint appears congruent. The visualized bony structures appear intact. Soft tissues: Overlying postoperative changes are noted. No suspicious soft tissue densities. IMPRESSION: Expected postsurgical change for left hip arthroplasty. Dictated by: Diana Strickland MD, PhD on 08/18/2020 at 17:41 Approved by: Diana Strickland MD, PhD on 08/18/2020 at 17:42
[2020-08-18] MEDS: LACTATED RINGERS 1,000 ML 42 ML IV (09:35)
--- NOTE | 2020-08-18 09:48 | PM.PREOP ---
Pre-operative Note COVID-19 COVID-19 status: Negative Result date/Date tested (Pos, Neg/Pending): 08/16/20 Interval Note History & Physical reviewed/Exam performed by Physician: Yes Changes to H&P: No H&P completed within 30 days and has changed as indicated here:: Plan for right anterior SARITA for OA/avascular necrosis of the right hip
--- NOTE | 2020-08-18 10:16 | DI.RAD.S_ITS ---
PROCEDURE: XR HIP W PEL IF DONE RT 2V INDICATIONS: RIGHT ANTERIOR HIP TECHNIQUE: 2 view(s) of the hip acquired. COMPARISON: None. FINDINGS: Bones: Patient is status post right hip arthroplasty, with hardware components in expected positions. The hip joint appears congruent. The visualized bony structures appear intact. Soft tissues: Overlying postoperative changes are noted. No suspicious soft tissue densities. IMPRESSION: Normal alignment after right total hip arthroplasty. Dictated by: Gonzalez Workman M.D. on 08/18/2020 at 13:55 Approved by: Gonzalez Workman M.D. on 08/18/2020 at 13:56
[2020-08-18] MEDS: CEFAZOLIN 2 GM/100 ML FROZ.PIGGY IV ×2 (10:23→18:00)
[2020-08-18] MEDS: TRANEXAMIC ACID 1,000 MG VIAL 1000 MG INJ ×2 (10:55→12:18)
--- NOTE | 2020-08-18 11:03 | SUR.OPER ---
Supine on padded [place] table with bilateral legs secured in padded positioning boots and suspended in positioning spars, operative leg in traction per surgeon. Head on one pillow. Arm on non-operative side secured on padded armboard <90 degrees abduction. Arm on operative side padded and resting across chest then secured with tape over sheet. Padded perineal post in place per surgeon.
[2020-08-18] MEDS: MORPHINE INJ (11:13)
[2020-08-18] MEDS: KETOROLAC INJ (11:13)
[2020-08-18] MEDS: ROPIVACAINE 0.5% INJ (11:13)
[2020-08-18] MEDS: SODIUM CHLORIDE IRRIG SOLUTION 250 ML, POVIDONE-IODINE SPONGE STICKS 1 APPLIC IRR (11:17)
--- NOTE | 2020-08-18 12:28 | P.OP_ITS ---
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 Surgeon: Jacky Murphy Heel Lining Paster: Zbigniew Saeed Anesthesia Type: General and Spinal Operative Notes Findings: Right femoral head AVN, delaminated cartilage Closure Type: primary Specimen(s): other (Femoral head sent to pathology) Prosthetic devices, grafts, tissues, transplants, or devices: Richter and Nephew 50 mm R3 cup 2x 25 mm screws 50 mm x 32 mm neutral offset polyethylene liner Size 7 standard offset anthology Oxinium head 32-3 Estimated Blood Loss (mL): 200 Blood products transfused: none Procedure in detail: Patient was met in the preoperative holding area the site and side of surgery were marked by . informed consent had been signed in clinic but was also reviewed in the preop holding area. All last minute questions were answered. Patient was then brought back to the operating room where she received a spinal anesthetic. She was then transferred onto the [place] table and placed under general anesthesia. Bilateral feet were well padded and placed in [place] table boots. The right lower extremity was then prepped and draped in normal sterile fashion. A surgical time-out was performed verifying site and side of surgery as well as the name of the patient. A 7 cm long incision starting about 2 cm distal and 1 cm lateral to the ASIS aiming towards the fibular head was made in the skin using 10. Blade. Electrocautery was then used to dissect down to the level of the tensor fascia. A new 10. Blade was then used to incise the tensor fascia. An Allis clamp was placed on the medial leaflet of the tensor fascia and the tensor muscle itself was reflected laterally. A Cobra retractor was then placed over the superior aspect femoral neck. Old a Meyerding retractor was then placed over the lateral aspect of the rectus femoris and retracted medially deep us good exposure to the ascending branch the femoral circumflex vessels these were coagulated using electrocautery. A 2nd Cobra retractors then placed under the inferior aspect of the femoral neck year and a bent Hohmann was placed over the anterior aspect of the acetabulum to give us good capsular exposure. Inverted T-shaped capsulotomy was then performed the superior and inferior leaflets were tagged with a FiberWire suture. The capsule was then further released off the femur and the Cobra retractors were placed intracapsularly. This gave us good exposure to the femoral neck. A femoral neck cut was made based off of our preoperative template reciprocating saw was used to make the femoral neck cut. The femur was then externally rotated 45? and a corkscrew was then used to remove the femoral head. Retractors then replaced and the pulp in our and remnant of the labrum were removed as well. At this point retractor was then removed and a elects the soft tissue protector sleeve was then placed into the wound. I began reaming with a 44 mm Reamer under fluoroscopic guidance. I went up by 2 mm at a time until I got to a 48 mm Reamer and then reamed with a 49 mm Reamer. This had good fit and we selected a 50 mm R3 three-hole cup. This was then malleted into place under fluoroscopic guidance. Two screws were then placed both of them 25 mm in length. A 50 mm x 32 mm neutral offset poly ethylene liner was then placed and malleted into place making sure the polyethylene tabs were flushed with the cup rim without soft tissue interposition. I then turned my attention to the femoral side femoral elevator hook was then placed under the posterior aspect of the femur the femur was externally rotated to 120? extended to the floor and adducted. A bent Hohmann was then placed over the superior aspect of the superior leaflet and the capsular leaflet was then released off the inside shoulder of the greater trochanter. A large single prong retractors then placed over the greater trochanter. A Meyerding retractors then placed over the calcar. This gave us good exposure the femoral neck. A canal finer was then used followed by viviana gudino broach to lateralize. I then began broaching with size 1 broach upsizing by 1s and ultimately ending at a size 7. A calcar planed off the 7. Broach. A standard offset neck with a 32+ 0 head was then trialed. During reduction was noted that the hip was tight. Fluoroscopic images were brought in which demonstrated that we were long on the side by about 3 or 4 mm. The hip was then dislocated the trials were removed and a 6. Broach was then countersunk and calcar planed. I then went up to a size 7 broach given which had good fit and fill. I then trialed with a 32+ 0 head and again we were 1-2 mm long. The hip was then dislocated a final time a size 7 standard offset anthology stem was selected and malleted into place and a 32-3 Oxinium head was then placed on the trunnion and malleted onto the Smith taper. The hip was reduced a final time final fluoroscopic images were obtained. Local anesthetic was then infiltrated into the periarticular soft tissues as well as the capsule and Betadine solution was placed in the wound for several minutes. The Betadine solution was then lavaged with copious normal saline. The capsule was then closed using running Ethibond suture the FiberWire tag sutures were removed. The tensor fascia was then closed using a running locking 1. Vicryl and 2 Vicryl were then used in subcutaneous layer followed by 3-0 Stratafix on skin Dermabond and Aquacel dressing. Complications: none Post-operative Condition: stable Disposition: PACU Plan for aftercare: 24 hours post-op abx, WBAT RLE, ASA 81mg BID for 6 weeks for DVT prophylaxis
[2020-08-18] MEDS: LACTATED RINGERS 1,000 ML 100 ML IV (14:00)
[2020-08-18] MEDS: ACETAMINOPHEN 325 MG TABLET 650 MG PO ×2 (15:05→21:38)
[2020-08-18] MEDS: IBUPROFEN 400 MG TABLET PO ×3 (15:05→21:41)
[2020-08-18] MEDS: ONDANSETRON 4 MG/2 ML INJ IV (16:03)
[2020-08-18] MEDS: DOCUSATE 100 MG CAPSULE PO (21:38)
[2020-08-18] MEDS: ONDANSETRON 4 MG ODT PO (21:38)
[2020-08-18] MEDS: ASPIRIN EC 81 MG TABLET PO (21:38)
[2020-08-19 01:00] VITALS: BP 135/59; PULSE 57; RESP 16; TEMP 36.2; O2SAT 98
[2020-08-19] MEDS: IBUPROFEN 400 MG TABLET PO ×3 (01:04→08:46)
[2020-08-19] MEDS: LACTATED RINGERS 1,000 ML 100 ML IV (01:05)
[2020-08-19] MEDS: CEFAZOLIN 2 GM/100 ML FROZ.PIGGY IV (02:00)
--- NOTE | 2020-08-19 03:47 | PC.NURSE ---
Addendum entered by Judy Ledbetter R.N. 08/19/20 06:20: Up to BS with 2 assist + walker and urinated 800cc. Original Note: 0120: patient is alert and oriented. Breath sounds CTA with RA sat of 98%. HRR but bradycardic at 57 bpm which patient reports is normal for her. Denies nausea. BT hypoactive and denies having passed any flatus yet. Assisted onto bedpan and was able to void; denies dysuria, frequency or urgency but has prolonged time emptying bladder. Is able to move herself in bed. Gait not assessed as has not yet been out of bed due to late surgery and post op numbness. Aquacel dressing to right hip is CDI. Denies any pain at present time; medicated with scheduled Ibuprofen. Feet cool to touch but equal in temperature with good capillary refill and motion although patient is unable to yet lift leg off bed. Wearing bilateral calf SCD's. Fall risk score is moderate; bed alarm is activated.
[2020-08-19 04:00] VITALS: BP 128/59; PULSE 58; RESP 16; TEMP 36.2; O2SAT 97
[2020-08-19 06:35] LABS: Hematocrit 31.4 % (36-46); Hemoglobin 10.7 g/dL (12.0-16.0)
--- NOTE | 2020-08-19 07:58 | PC.NURSE ---
Addendum entered by Pamela Sahu R.N. 08/19/20 08:56: Patient given zofran po with oxycodone and regular medications. She ate well at breakfast and will be working with physical therapy soon. Original Note: Assess- Patient is A&Ox3, she denies pain at the moment, will give her oxycodone prior to working with physical therapy. Dressing to R.anterior hip is cdi, cms wnl, and ppx2. She will get up with physical therapy, last evening her lower extremities were numb so she did not get up. She has feeling in both legs, and sat up at the side of bed well.
[2020-08-19 08:00] VITALS: BP 131/85; PULSE 59; RESP 18; TEMP 37.1; O2SAT 96
[2020-08-19] MEDS: ONDANSETRON 4 MG ODT PO (08:41)
[2020-08-19] MEDS: OXYCODONE IR 5 MG TABLET PO (08:42)
[2020-08-19] MEDS: DOCUSATE 100 MG CAPSULE PO (08:42)
[2020-08-19] MEDS: FOLIC ACID 0.4 MG TABLET PO (08:42)
[2020-08-19] MEDS: ACETAMINOPHEN 325 MG TABLET 650 MG PO (08:43)
[2020-08-19] MEDS: hydroCHLOROthiazide 25 MG TABLET PO (08:43)
[2020-08-19] MEDS: LORATADINE 10 MG TABLET PO (08:44)
[2020-08-19] MEDS: ASPIRIN EC 81 MG TABLET PO (08:44)
[2020-08-19] MEDS: TIMOLOL 0.5% OPHTH 1 DROPS EYE-BOTH (08:47)
[2020-08-19] MEDS: SODIUM CHLORIDE 0.9% FLUSH 10 ML IV (08:48)
--- NOTE | 2020-08-19 09:38 | PM.DS.1 ---
History of Present Illness History of Present Illness Date Patient Seen: 08/19/20 Time Patient Seen: 09:38 Chief complaint: RIGHT SARITA *OPB* Narrative: Please refer to previously documented HPI and chart. Discharge Providers Provider Discharge Date: 08/19/20 Primary care physician: Alex Clay MD Consults: 08/18/20 10:16 Consult to Anesthesiology Routine Comment: Consulting Provider: Anesthesiologist Reason for consultation: Regional block for post operative pain control 08/18/20 13:59 Consult to Discharge Planning Routine Comment: Consult to Physical Therapy Evaluate & Treat Comment: Physician Instructions: post op SARITA protocol Consult to Respiratory Therapy Evaluate & Treat Comment: Physician Instructions: Evaluate and treat Discharge provider: Gonzalez Carrillo PA-C Summary Hospital Course Discharge Diagnosis: Right hip osteoarthritis Status post right total anterior hip arthroplasty Hospital Course: 80-year-old female with the above-listed diagnoses was appropriately consented for the above listed procedure presenting to the OR undergoing said procedure without difficulty or complication then admitted for rehabilitation convalescing without significant issue and stable for discharge home safely today after evaluation noting ability to void without difficulty and denying intractable pain or dysfunction including but not limited to fever, chills, chest pain and shortness of breath. The patient and or family verbalized understanding postoperative care instructions and plan for follow-up for re-evaluation in 2 weeks. Status at Discharge Cognitive/behavioral status at discharge: oriented Functional status at discharge: uses cane/walker Overall status at discharge: patient is progressing back to baseline Time Spent with Patient Time spent: Less than 30 minutes Exam Vital Signs (past 8 hours): - 08/19/20 04:00 08/19/20 08:00 Temperature 97.2 F L 98.8 F Pulse Rate 58 L 59 L Respiratory Rate 16 18 Blood Pressure 128/59 L 131/85 Pulse Oximetry 97 96 Oxygen Delivery Method Room Air Oxygen Flow Rate 0 Narrative Exam Narrative: Well-developed well nourished 80-year-old female observed resting comfortably in no apparent distress, alert and oriented x3 with normal heart rate and inspiratory effort. Their dressing was clean, dry and intact. The patient's extremities were neurovascularly intact without signs or symptoms of DVT. Objective Labs Result Diagrams: 08/19/20 06:18 Labs: Laboratory Results - last 24 hr 08/19/20 06:18 Hgb 10.7 L Hct 31.4 L PFSH Medical History Arthritis Bilateral nephrolithiasis Bilateral ureteral calculi Breast cancer Diverticulitis Glaucoma History of nephrolithiasis HTN (hypertension) Hyperlipidemia Surgical History History of appendectomy (03/06/19) History of lithotripsy (~1981) History of surgery Status post cholecystectomy Status post partial mastectomy Family History Sister Cancer Mother Hypertension Social History marital status: household members: spouse Smoking Status: Former smoker second hand exposure: Yes alcohol intake: current caffeine: Yes Discharge Assessment & Plan Assessment and Plan Assessment: Right hip osteoarthritis Status post right total anterior hip arthroplasty doing well and stable for discharge Plan of Treatment: Discharge home today Total hip protocol Follow-up in 2 weeks for re-evaluation or sooner as needed Discharge Plan Discharge Plan Patient Disposition: Home Discharge orders & Medications Discharge Orders: Discharge (Order); Ordered 08/19/20 Ordered By: Gonzalez Carrillo Prescriptions: New acetaminophen 325 mg Tablet 650 mg PO TID Qty: 60 RF: 0 aspirin 81 mg Tablet,Delayed Release (Dr/Ec) 81 mg PO BID Qty: 60 RF: 0 oxycodone 5 mg Tablet 5 mg PO Q4-5H PRN (Reason: Pain, Moderate (4-6)) Qty: 60 RF: 0 ondansetron 4 mg tablet,disintegrating 4 mg PO Q8H 4 Days Qty: 12 RF: 0 Continued timolol maleate 0.5 % drops 1 drp EYE-BOTH BID Qty: 0 RF: 0 cetirizine [Aller-Amna] 10 mg Tablet 10 mg PO DAILY Qty: 0 RF: 0 cyanocobalamin (vitamin B-12) [Vitamin B-12] 1,000 mcg Tablet 1,000 mcg PO DAILY RF: 0 coenzyme Q10 [CoQ-10] 100 mg Capsule 300 mg PO DAILY Qty: 0 RF: 0 calcium citrate-vitamin D3 200 mg calcium -250 unit Tablet 2 tab PO DAILY RF: 0 ibuprofen 600 MG tablet 600 mg PO Q6HP PRN (Reason: pain) RF: 0 folic acid 400 mcg Tablet 0.4 mg PO DAILY RF: 0 hydrochlorothiazide 25 mg tablet 25 mg PO DAILY RF: 0 potassium citrate 10 mEq (1,080 mg) tablet extended release 10 meq PO TID Qty: 270 RF: 3 Follow up/Referrals: Alex Clay MD [Primary Care Provider] - Jacky Murphy MD [Physician] - (2 weeks) Diet/Activity/Treatments Diet: Diet as Tolerated Cold/Heat Therapy: Ice 20 min / hr as tolerated. Skin/Wound/Dressing Care Report to your healthcare provider any signs of infection, such as:: chills, fever, night sweats, increased pain, unusual drainage and unusual redness Dressing: Keep clean, dry and intact Visit Report/Discharge Packet Instructions: DI for Hip Replacement Stand Alone Forms: Surgery Discharge Discharge Data Primary Care Provider: Alex Clay V Attending Provider: Jacky Murphy Quality VTE Deep Vein Thrombosis/Pulmonary Embolism Present on Admission: No
--- NOTE | 2020-08-19 10:27 | PT.IIE ---
Current Diagnoses Unilateral primary osteoarthritis, right hip (08/18/20) Surgery Performed Operation Date: 08/18/20 10:15 Actual Procedures p Total Hip Arthroplasty/Anterior Approach(Right) - Jacky Murphy MD Surgical History (Last Reviewed 07/07/20 @ 16:17 by Binh Pandya MD) History of appendectomy (03/06/19) History of lithotripsy (~1981) History of surgery Status post cholecystectomy Status post partial mastectomy Medical History (Last Reviewed 07/07/20 @ 16:16 by Binh Pandya MD) Arthritis Bilateral nephrolithiasis Bilateral ureteral calculi Breast cancer Diverticulitis Glaucoma History of nephrolithiasis HTN (hypertension) Hyperlipidemia Physical Therapy Inpatient Evaluation/Re-Eval M1 PT/OT-IP Prior Functional Status Start: 08/19/20 12:39 Freq: NEEDED Status: Discharge Protocol: Document 08/19/20 10:27 AB (Rec: 08/19/20 12:50 AB [id number]) Medical Review Prior Functional Status Medical History Reviewed Yes Communication able to make needs known Mobility and Gait pt stated that she is independent with all mobilities and ambulation without AD Social History Household Members spouse Living Arrangements House Number of Floors (Floors) Two Floors Number of Stairs To Enter/Railing? pt will stay on main level of the house has 2 steps without rails to enter Home Environment Standard Height Toilet,Walk in Shower Home Equipment Front Wheel Walker,Quad Cane, Raised Toilet Seat w/Armrests, Hand Held Shower M2 PT-IP Current Condition Start: 08/19/20 12:39 Freq: NEEDED Status: Discharge Protocol: Document 08/19/20 10:27 AB (Rec: 08/19/20 12:50 AB [email or web address]) Physical Therapy Current Condition Current Condition Evaluation Date 08/19/20 Treatment Diagnosis s/p R SARITA anterior approach; difficulty in walking Onset Date 08/18/20 Precautions Anterior Hip Precautions No Hip Extension,No Hip External Rotation Weight Bearing Status Weight Bearing Status Weight Bear as Tolerated Allowed Weight Bearing Amount (enter % RLE WBAT or #) (%) M3 PT-IP Subjective Start: 08/19/20 12:39 Freq: NEEDED Status: Discharge Protocol: Document 08/19/20 10:27 AB (Rec: 08/19/20 12:50 AB [email or web address]) Subjective Physical Therapy Visit Type Type Initial Evaluation Visit Start Time 10:27 Visit Stop Time 11:21 Total Visit Minutes 54 Number of ELECTRIC DEICER ASSEMBLER Visits 0 Physical Therapy Visit Comments Patient Comments pt is agreeable to do PT; spouse in room with pt Therapy Pain Assessment Pain When Pain Assessed During Mobility Pain Present Pain Present Pain Reported Location right hip Intensity 4 Scale Used Numeric (0 - 10) Pain Management Techniques Distraction,Modification of Treatment,Re-positioning, Timing of Activity with Medications M4 PT-IP Mobility and Gait Start: 08/19/20 12:39 Freq: NEEDED Status: Discharge Protocol: Document 08/19/20 10:27 AB (Rec: 08/19/20 12:50 AB [email or web address]) PT-Bed Mobility Assessment Supine to Sit Supine to Sit Standby Assistance PT-Transfer Assessment Sit to and From Stand Sit to and from Stand Standby Assistance Equipment Transfer Assistive Device Gait Belt,Front Wheeled Walker Orthotic/Prosthetic Devices or Brace: No Transfers Transfer Destination Chair Transfer Technique ambulated using FWW Transfer Ability Level of Assist Standby Assistance Comments Mobility Comments spouse in room with pt. educated pt and spouse on anterior hip precautions. pt completed supine to sit SBA and was able to sit on EOB SBA . completed sit to stand SBA and ambulated in room ~ 30 ft SBA. pt agreed to ambulate in the hallway and do stair climbing. completed ambulated ~ 100 ft to the stairs using FWW SBA. stair climbing training conducted with use of quad cane and END MATCHER. completed with min A with PT assisting initially and then spouse assisted on 2nd set. educated spouse on how to assist pt and completed safely. pt ambulated back to her room using FWW SBA. agreed to sit up on chair. positioned on chair. call light and table placed within reach. Gait Assessment Gait Gait Assistance Required: Standby Assistance Distance (Feet) 100 Able to Maintain Weight Bearing Status Yes During Gait Assistive Devices Assistive Device Gait Belt,Front Wheeled Walker Orthotic/Prosthetic Devices or Brace: No Gait Deviations General Gait Pattern Antalgic Factors Limiting Gait Function Factors Limiting Gait Function Decreased Activity Tolerance, Decreased Strength,Pain,Poor Balance,Poor Safety Awareness Stair Climbing Assessment Evaluation Level of Assist On Stairs Minimal Assistance Devices Stair Climbing Assistive Devices Small Base Quad Cane Technique/Endurance Stair Climbing Direction Ascend and Descend Stair Climbing Technique Step to Step Number of Steps Climbed 3 Query Text: Stair Climbing Set # Repetitions (reps) 2 Comments Stair Climbing Comments pt used quad cane on L and END MATCHER on R; pls refer to mobility section for details PT-Balance Assessment Sitting Balance and Reactions Static Sitting Balance Ability Normal Dynamic Sitting Balance Ability Normal Standing Balance and Reactions Static Standing Balance Ability Good Dynamic Standing Balance Ability Fair Device Used FWW M5 PT-IP Objective Assessments Start: 08/19/20 12:39 Freq: NEEDED Status: Discharge Protocol: Document 08/19/20 10:27 AB (Rec: 08/19/20 12:50 AB [email or web address]) Orientation Orientation/Cognition Level of Alertness Alert Orientation Name,Age,Birthday,Month,Date, Year,Day of Week,Place, Situation Language Function Ability No Deficits Noted Safety Awareness Decreased Safety Awareness Memory Description Short Term Impaired Gross Range of Motion Lower Extremity ROM Assessment Within Functional Limits Strength Lower Extremity Strength Assessment Right Impaired Hip 3+/5 Knee 4-/5 Coordination Assessment Gross Coordination Gross Coordination WNL Sensation Assessment Sensation Gross Sensation WNL Muscle Tone Muscle Tone WNL Yes M6 PT-IP Treatment Start: 08/19/20 12:39 Freq: NEEDED Status: Discharge Protocol: Document 08/19/20 10:27 AB (Rec: 08/19/20 12:50 AB [email or web address]) Physical Therapy Treatment Education Education Provided Precautions,Weight Bearing Status,Post-Op Packet,Safety M7 PT-IP Assessment and Plan Start: 08/19/20 12:39 Freq: NEEDED Status: Discharge Protocol: Document 08/19/20 10:27 AB (Rec: 08/19/20 12:50 AB [email or web address]) PT Summary Assessment and Plan Potential Rehabilitation Potential Good Status of Condition at Evaluation Stable Summary Impairments Pain,ROM,Strength,Balance,Tone ,Cognition,Bed Mobility, Transfers,Gait,Activity Tolerance Assessment Summary pt requiring SBA with ambulation using FWW and min A with stair climbing. caregiver training conducted and spouse was able to assist pt safely. pt plans to go home and spouse to assist and is set up for outpt PT. pt may go home when medically stable. Goals Bed Mobility Goal Independent Transfer Goal Independent,Front Wheeled Walker Gait Goal Independent,Front Wheel Walker Gait Distance 200 Other Goals up/down 2 steps using quad cane SBA Days to Meet Goals 3 Frequency of Treatment Frequency Of Treatment Twice a Day Treatment Plan Physical Therapy Treatment Plan Bed Mobility Training,Transfer Training,Gait Training, Therapeutic Exercise,Balance Retraining,Post Op Education, Discharge Planning,Hot or Cold Pack,Neuromuscular Re-ed, Coordination Retraining,Manual Therapy Precautions Anterior Hip Precautions No Hip Extension,No Hip External Rotation Other Precautions WBAT RLE Recommendations To Nursing Amount of Assist Needed 1 Person Assist Discharge Recommendations PT Discharge Recommendations Home with Assistance, Outpatient PT Transportation Needs at Discharge Private Vehicle
--- NOTE | 2020-08-19 10:45 | CM.IDA ---
Initial DCP Assessment Note Pt is a 80 yo female, resident of [place], now POD#1 from Rt SARITA w/ Dr Murphy PCP: Alex Clay Payer: LUIS ANTONIO/[employer] Reviewed chart, pt discussed in multidisciplinary rounds this morning. Therapy has cleared pt for return home w/family to assist and pt has planned for home, DC order from Ortho has already been initiated this morning. Met w/patient this morning to introduce role. 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 Patient awaiting her session w/PT No needs expected from DC planning team although will remain available in case this changes today. Kelly Bean PNEUMATIC SYSTEMS OPERATOR
== END 2020-08-19 12:42 | disposition home or self-care (01) ==
LOC: OR 08:46 → AC 13:35
PROVIDERS: PCP Internal Medicine; Referring Provider Orthopaedic Surgery Adult Reconstructive Orthopaedic Surgery; Visit Provider Orthopaedic Surgery Adult Reconstructive Orthopaedic Surgery
PROC: (CPT 27130; principal; 2020-08-18 10:15)
DX: M16.11 Unilateral primary osteoarthritis, right hip (principal); M87.9 Osteonecrosis, unspecified
CPT/HCPCS: 27130; 36415; 72170; 73502; 76000; 85014; 85018; 97161; 97530; C1776; J0690; J1100; J1885; J2250; J2270; J2274; J2405; J2795; J3010

== ENCOUNTER → 2020-09-14 15:50 | Outpatient (CLI) | payer MEDICARE, OTHER, SELFPAY ==
[2020-08-18 14:02] VITALS: BMI 21.6
--- NOTE | 2020-09-14 15:53 | DI.RAD.S_ITS ---
PROCEDURE: XR KUB INDICATIONS: Kidney stones TECHNIQUE: One view of the abdomen acquired. COMPARISON: [facility], CT, CT ABDOMEN PELVIS WO CON, 06/23/2020, 13:26. [facility], CR, XR KUB, 07/05/2020, 15:54. [facility], CR, XR KUB, 05/27/2020, 15:17. FINDINGS: Surgical changes and devices: None. Bowel: Bowel gas pattern is normal. Soft tissues: With reference to the most recent CT KUB scanning 06/23/20 a total of 4 right-sided intrarenal urinary tract stones do not appear to have moved, and a upper medial left collecting system calculus also appears stable. Visualized solid organ contours appear normal in size. A faintly visualized calcification at the distal left ureter area may be present, corresponding to what appears to be a distal left ureteral stone on the prior CT seen on series 2, image 66. Bones: No suspicious bony lesions. IMPRESSION: Urinary tract stones within the collecting system of each kidney appear present. A small distal left ureteral calculus also may be present which in my opinion was located within the distal left ureter on prior CT scanning as discussed above. This had produced mild left-sided hydronephrosis and hydroureter. Dictated by: Gonzalez Workman M.D. on 09/14/2020 at 17:00 Approved by: Gonzalez Workman M.D. on 09/14/2020 at 17:07
[2020-09-14 17:37] LABS: Calcium 9.8 mg/dL (8.4-10.2); Uric Acid 4.9 mg/dL (2.5-6.2)
[2020-09-15 05:43] LABS: Parathyroid Hormone Int 35 pg/mL (15-65)
== END ==
PROVIDERS: PCP Internal Medicine; Referring Provider Specialist; Visit Provider Specialist
DX: N20.0 Calculus of kidney (principal)
CPT/HCPCS: 36415; 74018; 82310; 83970; 84550

== ENCOUNTER 2021-01-26 12:32 | Observation (INO) | payer MEDICARE, OTHER, SELFPAY ==
[2020-08-18 14:02] VITALS: BMI 21.6
[2021-01-26] VITALS (13 sets, daily range): BP systolic 134–204; BP diastolic 68–88; PULSE 54–68; RESP 16–37; TEMP 36.3–36.9; O2SAT 95–99; BMI 22.5
--- NOTE | 2021-01-26 12:41 | DI.CT.S_ITS ---
PROCEDURE: CT STROKE INDICATIONS: neuro/STROKE TECHNIQUE: Noncontrast 4.5 mm thick angled axial sections acquired from the foramen magnum to the vertex, with coronal reformats. For radiation dose reduction, the following was used: automated exposure control, adjustment of mA and/or kV according to patient size. COMPARISON: None. FINDINGS: Image quality: Excellent. CSF spaces: Basal cisterns are patent. No extra-axial fluid collections. The ventricles are symmetric in size and shape. Brain: No intracranial bleeds or masses. There is cerebral volume loss for age, with resultant ventricular and sulcal prominence. There are periventricular and deep white matter chronic small vessel ischemic changes. There is intracranial internal carotid artery atherosclerosis. Skull and face: Intact calvarium. Age-indeterminate minimally displaced facial bone fractures. Sinuses: Mild right maxillary sinus mucosal thickening. Minimal left maxillary sinus disease IMPRESSION: No acute intracranial process. Age-indeterminate minimally displaced nasal bone fractures. Findings (including all critical results) and recommendations were personally telephoned and discussed with Dr. Ga on 01-26-21 12:54 This study fulfills neurological imaging criteria for inclusion or exclusion of acute stroke therapies based on available published neurological guidelines. Dictated by: Keny Cardenas M.D. on 01/26/2021 at 12:50 Approved by: Keny Cardenas M.D. on 01/26/2021 at 12:59
--- NOTE | 2021-01-26 12:52 | ED_ITS ---
HPI - Neuro Symptoms/Deficit General Chief Complaint: Neuro Symptoms/Deficit Stated Complaint: Headache/ CVA Time Seen by Provider: 01/26/21 12:50 Source: patient Mode of arrival: EMS Limitations: no limitations History of Present Illness HPI Narrative: 80-year-old female comes emergency department with complaint of having sudden onset of tingling numb sensation in her left he was in the left side of her lips and left side of her tongue that lasted for a short period of time and then resolved. Patient states she ambulated without issue. She did check and had no facial droop. No issues with speech, no vision changes. She did wake up with a headache this morning and she states it has been sort of a dull headache similar to when she has had rebound headaches from stopping caffeine. Patient does note that she did not take anything for pain. She has not had similar symptoms in the past. She denies any numbness, tingling or weakness elsewhere. She did not appreciate any difficulty with movement of her hand or dropping objects but states it did feel significantly different. This occurred while she was cutting a sandwich and half with her left hand. 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 Patient states she did take her medication today. She does not take any anticoagulants or blood thinners. She had a mastectomy on the right in 2006 and hip replacement in July of 2020. Family history significant for sister with TIAs multiple times and aneurysm with coil embolization. No allergies. No tobacco, 4-6 oz alcoholic drink daily and no illicit. Patient's PCP is Dr. Clay. Related Data Home Medications Medication Instructions Recorded Confirmed timolol maleate 0.5 % eye drops 1 drp EYE-BOTH BID #0 04/12/16 01/26/21 calcium citrate 200 mg 2 tab PO DAILY 03/06/19 01/26/21 calcium-vitamin D3 6.25 mcg (250 unit) tablet cetirizine 10 mg tablet (Aller-[place]) 10 mg PO DAILY #0 03/06/19 01/26/21 cyanocobalamin (vitamin B-12) 1,000 mcg PO DAILY 03/06/19 01/26/21 1,000 mcg tablet (Vitamin B-12) folic acid 400 mcg tablet 0.4 mg PO DAILY 03/06/19 01/26/21 hydrochlorothiazide 25 mg tablet 25 mg PO DAILY 07/07/20 01/26/21 acetaminophen 325 mg tablet 650 mg PO PRN PRN 01/26/21 01/26/21 Previous Rx's Medication Instructions Recorded potassium citrate 10 mEq (1,080 10 meq PO TID #270 tab 07/07/20 mg) tablet,extended release Allergies Allergy/AdvReac Type Severity Reaction Status Date / Time No Known Drug Allergies Allergy Verified 08/18/20 09:03 Review of Systems Review of Systems ROS Unobtainable: All systems reviewed & are unremarkable except as noted in HPI and below Patient History Medical History Arthritis Bilateral nephrolithiasis Bilateral ureteral calculi Breast cancer Diverticulitis Glaucoma History of nephrolithiasis HTN (hypertension) Hyperlipidemia Surgical History History of appendectomy (03/06/19) History of lithotripsy (~1981) History of surgery Status post cholecystectomy Status post partial mastectomy Family History Sister Cancer Mother Hypertension Social History marital status: household members: spouse Smoking Status: Former smoker second hand exposure: Yes alcohol intake: current caffeine: Yes Smoking Status: Former smoker alcohol intake frequency: 0-2 drinks per day Alcohol type: wine Substance Use Type: does not use Exam Narrative Exam Narrative: GEN: well nourished, well appearing female, alert and oriented x 3, patient appears to be in mild distress. HEENT: Atraumatic, pupils are equal round reactive to light, extraocular movements are intact, nares are clear, TMs are clear with no fluid, there is no conjunctival pallor. Throat is clear without any exudates, erythema, tonsillar enlargement or uvular deviation, no facial droop. Patient does have some decr eased vision in the left cruz but states this is her normal. HEART: Regular rate and rhythm without murmur, clicks, rubs. Pulses are equal in upper extremities LUNGS:Lungs clear to auscultation, no wheezes, rales, crackles, chest moves symmetrically ABD:bowel sounds normal, soft, non-tender, no guarding, rebound, rigidity, no masses noted, no hepatosplenomegaly MSCL: Non-tender, no muscle atrophy, muscles strength 5/5 upper and lower extremities, full range of motion NEURO:CN 2-12 intact, sensation normal, reflexes 2/4 upper and lower extremities. finger nose finger test normal, heel lovell test normal SKIN: No rash, erythema or other skin changes. Initial Vital Signs Initial Vital Signs: Vital Signs Temperature 97.8 F 01/26/21 12:59 Pulse Rate 59 L 01/26/21 12:59 Respiratory Rate 20 01/26/21 12:59 Blood Pressure 166/88 H 01/26/21 12:59 Pulse Oximetry 99 01/26/21 12:59 Scores NIH Stroke Scale Level of Conciousness: Alert, keenly responsive Ask month/age: Answers both questions correctly. Open/close eyes, close hand: Performs both tasks correctly Best gaze horizontal: Normal Visual cruz: Partial hemianopia Facial palsy: Normal symetrical movement Left arm drift: No drift for full 10 sec Right arm drift: No drift for full 10 sec Left leg drift: No drift for full 5 sec Right leg drift: No drift for full 5 sec Limb ataxia: Absent Sensory on face/arms/legs: Normal, no sensory loss Best language: No aphasia, normal Dysarthria: Normal Extinction or inattention: No abnormality Total NIH Stroke scale score: 1 Course Orders Ordered: ED Orders 01/26/21 12:38 Complete Blood Count AUTO DIFF Stat Partial Thromboplastin Time Stat Prothrombin Time INR Stat Troponin & CK Cardiac Panel Stat 01/26/21 12:41 CT Stroke Stat 01/26/21 12:50 CT angio head and neck Stat 01/26/21 12:51 EKG-12 Lead Stat 01/26/21 13:21 Basic Metabolic Panel Stat 01/26/21 13:29 Urine Drug Screen, Rapid Stat 01/26/21 13:58 COVID19 - ADMIT (SEN[facility] ATTORNEY swab/PCR) Stat Sodium Chloride (Normal Saline 0.9%) 1,000 mls @ 150 mls/hr IV CONT [place] Last Admin: 01/26/21 13:20 Dose: 150 mls/hr Documented by: MARKO Discontinued Medications Aspirin (Aspirin 81 Mg Chew Tab) 324 mg PO NOW ONE Stop: 01/26/21 13:40 Last Admin: 01/26/21 13:54 Dose: 324 mg Documented by: MARKO Hydralazine HCl (Hydralazine 20 Mg/Ml Vial) 10 mg IV NOW ONE Stop: 01/26/21 13:40 Last Admin: 01/26/21 13:55 Dose: 10 mg Documented by: MARKO Consultations Consultation #1: Dr. Henao accepts for admission for TIA with hypertension. Vital Signs Vital signs: Vital Signs - 8 hr 01/26/21 12:59 01/26/21 13:11 01/26/21 13:30 Temperature 97.8 F Pulse Rate 59 L 56 L 59 L Respiratory Rate 20 27 H 30 H Blood Pressure 166/88 H 204/88 H Pulse Oximetry 99 98 98 01/26/21 13:55 01/26/21 13:56 01/26/21 14:00 Temperature Pulse Rate 54 L 55 L 54 L Respiratory Rate 20 20 Blood Pressure 167/76 H 167/76 H 190/75 H Pulse Oximetry 95 95 01/26/21 14:22 01/26/21 14:30 Temperature Pulse Rate 62 62 Respiratory Rate 33 H 22 Blood Pressure 204/87 H 175/76 H Pulse Oximetry 98 97 MDM - Neuro Symptoms/Deficit Lab Data Result diagrams: 01/26/21 12:38 01/26/21 13:21 Labs: Lab Results 01/26/21 01/26/21 01/26/21 Range/Units 12:38 12:38 12:38 WBC 6.4 (4.5-11.0) X10^3/uL RBC 3.78 L (4.0-5.2) X10^6/uL Hgb 12.7 (12.0-16.0) g/dL Hct 37.4 (36-46) % MCV 99.1 (80-100) fL MCH 33.7 (26-34) PG MCHC 34.0 (30-36) % RDW 13.6 (11.6-14.8) % Plt Count 241 (150-400) X10^3/uL Neut % (Auto) 55.1 (50-75) % Lymph % (Auto) 25.9 (25-40) % [place] % (Auto) 10.7 (3-14) % Eos % (Auto) 7.1 H (2-4) % Baso % (Auto) 1.2 (0-2) % Neut # (Auto) 3500 (4636-0854) /uL Lymph # (Auto) 1600 (7316-9257) /uL [place] # (Auto) 700 (0-900) /uL Eos # (Auto) 500 H (0-450) /uL Baso # (Auto) 100 (0-100) /uL PT 11.2 (10.1-12.7) SECONDS INR 1.0 (0.9-1.3) APTT 35 D (26.4-36.2) SECONDS Sodium (137-145) mmol/L Potassium (3.4-5.1) mmol/L Chloride (98-107) mmol/L Carbon Dioxide (22-32) mmol/L BUN (7-17) mg/dL Creatinine (0.52-1.04) mg/dL Estimated GFR (>60) mL/min BUN/Creatinine Ratio (6-22) Glucose (80-110) mg/dL Calcium (8.4-10.2) mg/dL Total Creatine Kinase 38 (30-135) U/L CK-MB (CK-2) TNP CK-MB (CK-2) Rel Index TNP Troponin I < 0.012 (0.01-0.034) ng/mL U Opiates 300ng/mL cut (Negative) Ur Oxycodone Screen (Negative) Urine Methadone Screen (Negative) Ur Barbiturates Screen (Negative) U Tricyclic Antidepress (Negative) Ur Phencyclidine Scrn (Negative) Ur Amphetamines Screen (Negative) U Methamphetamines Scrn (Negative) Ur MDMA Scrn (Ecstasy) (Negative) U Benzodiazepines Scrn (Negative) Urine Cocaine Screen (Negative) U Marijuana (THC) Screen (Negative) SARS-CoV-2 (PCR) (Negative) 01/26/21 01/26/21 01/26/21 Range/Units 13:21 13:29 13:58 WBC (4.5-11.0) X10^3/uL RBC (4.0-5.2) X10^6/uL Hgb (12.0-16.0) g/dL Hct (36-46) % MCV (80-100) fL MCH (26-34) PG MCHC (30-36) % RDW (11.6-14.8) % Plt Count (150-400) X10^3/uL Neut % (Auto) (50-75) % Lymph % (Auto) (25-40) % [place] % (Auto) (3-14) % Eos % (Auto) (2-4) % Baso % (Auto) (0-2) % Neut # (Auto) (5706-9181) /uL Lymph # (Auto) (4725-4999) /uL [place] # (Auto) (0-900) /uL Eos # (Auto) (0-450) /uL Baso # (Auto) (0-100) /uL PT (10.1-12.7) SECONDS INR (0.9-1.3) APTT (26.4-36.2) SECONDS Sodium 133 L (137-145) mmol/L Potassium 4.1 (3.4-5.1) mmol/L Chloride 94 L (98-107) mmol/L Carbon Dioxide 30 (22-32) mmol/L BUN 15 (7-17) mg/dL Creatinine 0.51 L (0.52-1.04) mg/dL Estimated GFR > 60.0 (>60) mL/min BUN/Creatinine Ratio 29.4 H (6-22) Glucose 138 H (80-110) mg/dL Calcium 10.0 (8.4-10.2) mg/dL Total Creatine Kinase (30-135) U/L CK-MB (CK-2) CK-MB (CK-2) Rel Index Troponin I (0.01-0.034) ng/mL U Opiates 300ng/mL cut Negative (Negative) Ur Oxycodone Screen Negative (Negative) Urine Methadone Screen Negative (Negative) Ur Barbiturates Screen Negative (Negative) U Tricyclic Antidepress Negative (Negative) Ur Phencyclidine Scrn Negative (Negative) Ur Amphetamines Screen Negative (Negative) U Methamphetamines Scrn Negative (Negative) Ur MDMA Scrn (Ecstasy) Negative (Negative) U Benzodiazepines Scrn Negative (Negative) Urine Cocaine Screen Negative (Negative) U Marijuana (THC) Screen Negative (Negative) SARS-CoV-2 (PCR) Negative (Negative) Point of Care Testing Glucose POC 142 Urine Dip Bedside Urine Glucose Negative Bedside Urine Bilirubin - Negative Bedside Urine Ketone - Negative Urine Specific [place] 1.010 Bedside Urine Occult Blood - Negative Bedside Urine pH 7.5 Bedside Urine Protein - Negative Bedside Urine Urobilinogen - Negative Bedside Urine Nitrite - Negative Bedside Urine Leukocytes - Negative Esterase Imaging Data CT scan - head: Radiologist's Impression: [address] [id number] Scan ReportSigned Patient: Brenda Lerma EMR#: [id number]: 1940cct:[id number]/Sex: 80 / FDate of Service: 01/26/21Loc: EDAccession Number: [id number] Procedure: CT Stroke Ordering Provider: Jaelyn Ga D.O. PROCEDURE: CT STROKE INDICATIONS: neuro/STROKE TECHNIQUE: Noncontrast 4.5 mm thick angled axial sections acquired from the foramen magnum to the vertex, with coronal reformats. For radiation dose reduction, the following was used: automated exposure control, adjustment of mA and/or kV according to patient size. COMPARISON: None. FINDINGS: Image quality: Excellent. CSF spaces: Basal cisterns are patent. No extra-axial fluid collections. The ventricles are symmetric in size and shape. Brain: No intracranial bleeds or masses. There is cerebral volume loss for age, with resultant ventricular and sulcal prominence. There are periventricular and deep white matter chronic small vessel ischemic changes. There is intracranial internal carotid artery atherosclerosis. Skull and face: Intact calvarium. Age-indeterminate minimally displaced facial bone fractures. Sinuses: Mild right maxillary sinus mucosal thickening. Minimal left maxillary sinus disease IMPRESSION: No acute intracranial process. Age-indeterminate minimally displaced nasal bone fractures. Findings (including all critical results) and recommendations were personally telephoned and discussed with Dr. Ga on 01-26-21 12:54 This study fulfills neurological imaging criteria for inclusion or exclusion of acute stroke therapies based on available published neurological guidelines. Dictated by: Keny Cardenas M.D. on 01/26/2021 at 12:50 Approved by: Keny Cardenas M.D. on 01/26/2021 at 12:59 CTA - brain/neck: Radiologist's Impression: Brenda Lerma 80 F [address] [id number] Scan ReportSigned Patient: Brenda Lerma EMR#: [id number]: 2Acct:[id number]/Sex: 80 / FDate of Service: 01/26/21Loc: EDAccession Number: [id number] Procedure: CT angio head and neck Ordering Provider: Jaelyn Ga D.O. PROCEDURE: CT ANGIO HEAD AND NECK INDICATIONS: tingling numbness, hypertension TECHNIQUE: After the administration of intravenous contrast, 1 mm thick sections acquired from the aortic arch through the [place]. Post-contrast 4.5 mm thick sections then re-acquired from the foramen magnum to the vertex. 3-dimensional gqlgexf-pnzxidztv-uisxdshjjy (MIP) and/or volume rendering reformats were acquired of the central intracranial vasculature and neck separately. COMPARISON: [facility], CT, CT STROKE, 01/26/2021, 12:45. FINDINGS: Image quality: Excellent. BRAIN: CSF spaces: Ventricles are normal in size and shape. Basal cisterns are patent. No extra-axial fluid collections. Brain: No midline shift. No intracranial bleeds or masses. Richey-white matter interface appears intact. Age-related volume loss and small vessel ischemic change. Skull and face: Calvarium and facial bones appear intact, without suspicious lesions. Orbits appear normal. Sinuses: Patchy bilateral ethmoid opacification. Mild bilateral maxillary sinus mucosal thickening. Nasal septal deviation to the left. HEAD CT ANGIOGRAPHY: Anterior circulation: Intracranial internal carotid arteries are normal in size and flow. The flow within the paired anterior cerebral arteries is normal and symmetric. The flow within the middle cerebral arteries is normal and symmetric. The anterior communicating artery may be absent, normal variant. No aneurysms are seen. Posterior circulation: Visualized portions of the vertebral arteries demonstrate normal caliber, and join to form a normal appearing basilar artery. Flow within the posterior cerebral arteries is normal and symmetric. No aneurysms are seen. NECK CT ANGIOGRAPHY: Carotid system: The great vessels demonstrate a conventional anatomy as they arise from the aortic arch. The origins of the common carotid arteries appear patent. The common carotid arteries demonstrate normal caliber and courses. Bilateral carotid bifurcation atherosclerotic calcifications. Mild bilateral proximal internal carotid artery stenosis, less than 50%. Posterior circulation: The origins of the vertebral arteries both appear widely patent. The more superior extracranial portions of both vertebral arteries also demonstrate normal courses and calibers. They join to form a normal appearing basilar artery. Soft tissues: Visualized neck soft tissues demonstrate no suspicious abnormalities. There are multiple thyroid nodules including a 1.2 cm right thyroid nodule with calcifications. Bones: No suspicious bony lesions. Visualized cervical spine appears normally aligned. IMPRESSION: 1. Age-related volume loss and small vessel ischemic change. 2. No evidence acute stroke, hemorrhage, or mass. 3. Unremarkable CTA head. No stenosis, occlusion, aneurysm, or focal filling defect. 4. Mild bilateral less than 50% internal carotid artery stenosis. 5. Mild chronic sinus disease. Comment: Findings were discussed with Dr. Ga at the time of study dictation on 01/26/2021 at 1312 hours. Any quantitative measurements of stenosis were performed using NASCET criteria. Dictated by: Matthew Bee M.D. on 01/26/2021 at 13:06 Approved by: Matthew Bee M.D. on 01/26/2021 at 13:13 ECG Data Attestation: I personally reviewed and interpreted this ECG as follows: Prior ECG tracings: available for review Interpretation: Sinus bradycardia with occasional premature complexes. Nonspecific ST change. Rate of 59 SD 174 QRS 80 QTC 411. Patient does have prior EKG available for comparison no major changes. MDM Narrative Medical decision making narrative: This is a 80-year-old female who comes with TIA like symptoms which have resolved. Patient is hypertensive. Her blood pressures been somewhat labile but received hydralazine secondary to increasing blood pressures. Patient heart rate was in the 50s so beta-germán or calcium channel germán seemed inappropriate choice. Patient is not a tPA candidate secondary to resolution of her symptoms and low NIH. Her NIH is 1 but this is secondary to chronic vision changes so is essentially 0. Head CT, CTA and labs do not show any major abnormalities. Patient was given aspirin p.o. here in the department. I discussed with hospitalist who accepts for observation. Discharge Plan Departure Patient Disposition: Admitted as Observation Clinical Impression: TIA (transient ischemic attack) Admit Date/Time: 01/26/21 14:58 Admit Provider: Virginia Henao
[2021-01-26 12:54] LABS: Add Manual Diff / Slide Review NO; Basophils Absolute Auto 100 /uL (0-100); Basophils Percent Auto 1.2 % (0-2); Eosinophils Absolute Auto 500 /uL (0-450); Eosinophils Percent Auto 7.1 % (2-4); Hematocrit 37.4 % (36-46); Hemoglobin 12.7 g/dL (12.0-16.0); Lymphocytes Absolute Auto 1600 /uL (1100-4500); Lymphocytes Percent Auto 25.9 % (25-40); Mean Corpuscular Hemoglobin 33.7 PG (26-34); Mean Corpuscular Volume 99.1 fL (80-100); Monocytes Absolute Auto 700 /uL (0-900); Monocytes Percent Auto 10.7 % (3-14); Neutrophils Absolute Auto 3500 /uL (1500-7000); Neutrophils Percent Auto 55.1 % (50-75); Platelet Count 241 X10^3/uL (150-400); Red Blood Cell Count 3.78 X10^6/uL (4.0-5.2); Red Cell Distribution Width 13.6 % (11.6-14.8); White Blood Cell Count 6.4 X10^3/uL (4.5-11.0)
[2021-01-26 13:01] LABS: Prothrombin Time 11.2 SECONDS (10.1-12.7)
[2021-01-26 13:04] LABS: Creatine Kinase 38 U/L (30-135); PTT Partial Thromboplastin Tim 35 SECONDS (26.4-36.2)
[2021-01-26 13:16] LABS: Troponin I < 0.012 ng/mL (0.01-0.034)
[2021-01-26] MEDS: SODIUM CHLORIDE 0.9% 1,000 ML 150 ML IV (13:20)
[2021-01-26 13:40] LABS: BUN Creatinine Ratio 29.4 (6-22); Blood Urea Nitrogen 15 mg/dL (7-17); Carbon Dioxide 30 mmol/L (22-32); Chloride 94 mmol/L (98-107); Estimated Glomerular Filt Rate > 60.0 mL/min (>60); Glucose 138 mg/dL (80-110); HEMOLYSIS 18 (0-50); Potassium 4.1 mmol/L (3.4-5.1); Sodium 133 mmol/L (137-145)
[2021-01-26 13:42] LABS: UR Morphine/Opiate cutoff 300 Negative (Negative); Ur Creatinine Normal (Normal); Ur Specific Gravity Normal (Normal); Urine Amphetamines Negative (Negative); Urine Barbiturates Negative (Negative); Urine Benzodiazepines Negative (Negative); Urine Cocaine Negative (Negative); Urine MDMA Negative (Negative); Urine Methadone Negative (Negative); Urine Methamphetamines Negative (Negative); Urine Oxycodone Negative (Negative); Urine Phencyclidine Negative (Negative); Urine Tetrahydrocannabinol Negative (Negative); Urine Tricyclic Antidepressant Negative (Negative); Urine pH Normal (Normal)
[2021-01-26] MEDS: ASPIRIN 81 MG CHEW TAB 324 MG PO (13:54)
[2021-01-26] MEDS: HYDRALAZINE 20 MG/ML VIAL 10 MG IV (13:55)
[2021-01-26 14:53] LABS: COVID19 - ADMIT (NP swab/PCR) Negative (Negative)
[2021-01-26 22:12] LABS: Magnesium 1.5 mg/dL (1.6-2.3)
[2021-01-26 22:35] LABS: Hemoglobin A1C% w Est Avg Glu 5.5 % (4.0-6.0)
[2021-01-26] MEDS: SODIUM CHLORIDE 0.9% FLUSH 10 ML IV (22:44)
--- NOTE | 2021-01-26 22:46 | PC.NURSE ---
Pt admitted this evening around 1730 with a diagnosis of TIA. pt alert and oriented X 4. NIH 0. ambulating with standby assist. Bed alarm in place. pt ate 100% dinner. SCD's/
--- NOTE | 2021-01-26 23:13 | PC.NURSE ---
Pt's home meds provided to component assembler supervisor, Emmanuelle, to secure.
--- NOTE | 2021-01-27 | DI.ECHO.S_ITS ---
[place] [facility]---------+ [facility] +---------+ : : [address] : : : : [id number] : : : : Phone: [phone] Echocardiogram Report + + :Name: GIULIANA AGUIAR Study Date: 01/27/2021 Height: 65 in : :[facility] ReadingLocation: Weight: 135 lb : : Gender: Female BSA: 1.7 m2 : :: 1940 Age: 80 yrs BP: 149/76 mmHg: :Reason For Study: TIA : :Ordering Physician: Karen OLIVERformed By: Catia Rowland : :Referring: LELA OLIVER : + + Interpretation Summary 1) Normal left ventricular thickness, size, wall motion, and systolic function (EF 60-65%). 2) Normal right ventricular size and function. 3) No significant valvular abnormalities. 4) Injection of contrast documented no interatrial shunt. 5) No prior Echo available for comparison. Procedure: A two-dimensional transthoracic echocardiogram with color flow and Doppler was performed. The study quality was technically adequate. There is no prior echocardiogram noted for this patient. A saline contrast injection was performed to assess for cardiac shunting. The injection was performed through an intravenous line in the left arm. The patient was in sinus bradycardia with heart rates between 48-55 bpm during the exam. Left Ventricle: The left ventricle is normal in size and wall thickness. The ejection fraction is estimated to be 60-65%. Diastolic parameters suggest a relaxation abnormality of the left ventricle, consistent with probable normal filling pressures. Right Ventricle: The right ventricle is normal in size and function. Atria: The left atrium is mildly dilated. The right atrium is mildly dilated. There is no Doppler evidence for an interatrial shunt. Injection of contrast documented no interatrial shunt. Mitral Valve: The mitral valve is normal in structure and function. There is mild mitral regurgitation. Aortic Valve: The aortic valve is trileaflet. The aortic valve opens well. There is no aortic valve stenosis. No aortic regurgitation is present. Tricuspid Valve: The tricuspid valve is normal in structure and function. There is mild tricuspid regurgitation. The right ventricular systolic pressure is estimated to be at least 30 mmHg based on an estimated right atrial pressure of 3 mm Hg. Pulmonic Valve: The pulmonic valve leaflets are thin and pliable; valve motion is normal. There is mild pulmonic regurgitation. Great Vessels: The aortic root is normal size. The dimensions of the ascending aorta are normal. The IVC is of normal diameter and collapses greater than 50% with a sniff. This suggests a low right atrial pressure of 3 mm Hg. Pericardium/ Pleura There is no pericardial effusion. There is no pleural effusion. MMode/2D Measurements & Calculations LVIDd: 4.9 cm LVOT diam: 2.0 cm LVIDs: 3.1 cm Ao root diam: 3.1 cm FS: 35.7 % asc Aorta Diam: 3.5 cm IVSd: 0.79 cm Ao Arch Diam (Prox Trans): 2.5 cm LVPWd: 0.90 cm LV [place]. diameter/BSA (cm/m^2): 2.9 LV sys. diameter/BSA (cm/m^2): 1.9 LA A2 area: 19.5 cm2 RA long axis: 4.5 cm LA A4 area: 23.1 cm2 RA area: 18.0 cm2 LA length (vol): 5.4 cm RA vol: 61.1 ml LA vol: 70.8 ml RA : 36.5 ml/m2 LA vol index: 42.3 ml/m2 IVC diam: 1.3 cm RVD1 (basal): 3.6 cm TAPSE: 2.0 cm Doppler Measurements & Calculations Ao V2 max: 108.3 cm/sec LVOT Max Anuj: 90.7 cm/sec Ao V2 mean: 75.5 cm/sec LV V1 max P.3 mmHg Ao max P.7 mmHg LV V1 VTI: 21.9 cm Ao mean P.6 mmHg ANIBAL(I,D): 2.5 cm2 Ao V2 VTI: 27.9 cm ANIBAL(V,D): 2.7 cm2 sev ratio: 0.79 ANIBAL indexed to BSA (cm^2/m^2): 1.5 MV E max anuj: 75.3 cm/sec TR max anuj: 259.3 cm/sec MV A max anuj: 70.8 cm/sec TR max P.9 mmHg MV E/A: 1.1 PA V2 max: 85.4 cm/sec Med Peak E' Anuj: 4.7 cm/sec PA V2 mean: 55.9 cm/sec E/E' med: 16.2 PA mean P.4 mmHg Lat Peak E' Anuj: 5.2 cm/sec PA pr(Accel): 43.0 mmHg E/E' lat: 14.5 E/e' average: 15.3 MV dec time: 0.18 sec SV(LVOT): 70.6 ml Reading Physician:09:12 AM
--- NOTE | 2021-01-27 | DI.MRI.S_ITS ---
PROCEDURE: MR STROKE Pre- and post-contrast brain MRI, non-contrast brain MR angiogram, pre- and postcontrast neck MR angiogram INDICATIONS: left sided parestesia of the face, h/a now resolved TECHNIQUE: Brain: Noncontrast axial T1 spin echo, axial T2 fast spin echo, sagittal and axial FLAIR, coronal T2 fast spin echo, axial gradient echo, axial diffusion and ADC through the brain. After the administration of contrast, axial 3D VIBE of the cranial vasculature and brain. Brain MRA: Non-contrast 3-D time of flight MR angiogram, with multiple hilrvli-kgcxwfcwt-tzlooivbyo (MIP) reformats performed. Neck MRA: Axial and sagittal TruFISP through the neck. Coronal dynamic MR angiogram during administration of contrast in the arterial and venous phases, with 3-dimenstional gdbjjhw-kwnurszva-gehaoxmefe (MIP) reformats constructed from subtraction images. COMPARISON: [facility], CT, CT STROKE, 01/26/2021, 12:45. [facility], CT, CT ANGIO HEAD AND NECK, 01/26/2021, 12:45. FINDINGS: Image quality: Excellent. BRAIN: CSF spaces: Ventricles are normal in size and shape. Basal cisterns are patent. No extra-axial fluid collections. Brain: No intracranial bleeds or mass effects. There is mild, diffuse cerebral volume loss. There are mild periventricular and subcortical white matter chronic microvascular ischemic changes Richey-white matter interface is normal. Diffusion weighted images show no acute ischemic insults. Brainstem appears normal. Normal intravascular flow voids are present. Dural sinuses demonstrate normal postcontrast enhancement. No abnormal intracranial enhancement. Skull and face: Calvarial marrow signal is normal. Orbits appear normal. Sinuses: Mild mucosal thickening in the right maxillary sinus. The mastoids are clear. BRAIN MR ANGIOGRAM: Anterior circulation: Intracranial internal carotid arteries are normal in size and enhancement. The flow within the paired anterior cerebral arteries is normal and symmetric. The flow within the middle cerebral arteries is normal and symmetric. The anterior communicating artery is seen. No stenoses, occlusions, or aneurysms. Posterior circulation: The visualized portions of the vertebral arteries demonstrate normal caliber, and join to form a normal appearing basilar artery. The flow within the posterior cerebral arteries is normal and symmetric. No stenoses, occlusions, or aneurysms. NECK MR ANGIOGRAM: Carotids: Great vessels demonstrate a conventional anatomy as they arise from the aortic arch. The origins of the common carotid arteries appear patent. The calibers and courses of both common carotid arteries are normal. Mild atherosclerotic irregularity noted in the origins of the internal carotid arteries bilaterally which causes less than 50% stenosis of the vessels. Posterior circulation: The origins of the vertebral arteries appear patent. More superior portions of both vertebral arteries demonstrate normal course and caliber, and join to form a normal appearing basilar artery. Miscellaneous: Subclavian arteries appear patent. Pre-contrast images through the neck show no soft tissue abnormalities. IMPRESSION: BRAIN MRI: 1. No acute intracranial disease process. 2. No areas of acute or chronic infarction. 3. No intracranial hemorrhage. 4. No abnormal intracranial mass or mass effect. 5. No suspicious postcontrast enhancement BRAIN MR ANGIOGRAM: Negative examination. NECK MR ANGIOGRAM: 1. Less than 50% stenosis of the origins of the internal carotid arteries bilaterally. 2. Vertebral arteries are fully patent. Dictated by: Diana Strickland MD, PhD on 01/27/2021 at 11:14 Approved by: Diana Strickland MD, PhD on 01/27/2021 at 11:21
--- NOTE | 2021-01-27 01:08 | PM.HP.1 ---
History of Present Illness History of Present Illness Date Patient Seen: 01/26/21 Time Patient Seen: 21:00 Chief complaint: Headache/TIA Narrative: Brenda Lerma is a 80 year old female with past history of right-sided breast cancer, hypertension, and glaucoma presented after having a series of symptoms today that felt like she was having a stroke. Initially she felt like she had weakness in her left hand when trying to slice apart a sandwich. This was followed by tingling sensation in her left lip and then her tongue which then resolved. And then started to have a headache, and after either waking up in the morning or waking up after a nap she felt like the headache was not as bad. She did notify her who called EMS to have her taken to the emergency department. She denies any fevers sweats or chills, difficulty swallowing, shortness of breath, dizziness, chest pain or palpitations, nausea or vomiting, dysuria, diarrhea constipation, weakness or tingling of the lower extremities. She does endorse urinating more than usual and that she has always chilly. Patient's head CT and CTA were both negative for a acute process. ED NIH score was 1. Currently her vitals are 98.5, blood pressure 134/70, heart rate 56, respiratory rate 16, oxygen saturation 97% on room air, she weighs 61.3 kg with a BMI of 22.5. CBC is unremarkable, she is slightly hyponatremic with a sodium of 133, potassium within normal limits of 4.1, chloride 94, creatinine 0.51, GFR is within normal limits, glucose is 138, magnesium is 1.5, troponin is within normal limits, negative urine toxicology, COVID-19 PCR is negative. Patient History Medical History (Updated 01/27/21 @ 01:10 by LILI Matias) Arthritis Bilateral nephrolithiasis Bilateral ureteral calculi Breast cancer Breast cancer, right Diverticulitis Glaucoma History of nephrolithiasis HLD (hyperlipidemia) (11/21/11) HTN (hypertension) Hyperlipidemia Surgical History History of appendectomy (03/06/19) History of lithotripsy (~1981) History of surgery Status post cholecystectomy Status post partial mastectomy Family & Social History Family History (Updated 01/27/21 @ 01:11 by Susie Cardenas, [employer]) Sister Cancer TIA (transient ischemic attack) Aneurysm Mother Hypertension Polycythemia vera Father Polycythemia vera Social History: household members spouse Safety & Behavioral: Feels Safe in Current Yes Environment Been Physically Hurt or No Threatened By a Person Suicidal Ideation Description None Tobacco & Substance use: Smoking Status Former smoker alcohol intake current alcohol intake frequency 4-6 drinks per day Substance Use Type does not use Meds Home Medications and Allergies Home Medications Medication Instructions Recorded Confirmed Type timolol maleate 0.5 % eye drops 1 drp EYE-BOTH BID #0 04/12/16 01/26/21 History calcium citrate 200 mg 2 tab PO DAILY 03/06/19 01/26/21 History calcium-vitamin D3 6.25 mcg (250 unit) tablet cetirizine 10 mg tablet (Aller-Amna) 10 mg PO DAILY #0 03/06/19 01/26/21 History cyanocobalamin (vitamin B-12) 1,000 mcg PO DAILY 03/06/19 01/26/21 History 1,000 mcg tablet (Vitamin B-12) folic acid 400 mcg tablet 0.4 mg PO DAILY 03/06/19 01/26/21 History hydrochlorothiazide 25 mg tablet 25 mg PO DAILY 07/07/20 01/26/21 History potassium citrate 10 mEq (1,080 10 meq PO TID #270 tab 07/07/20 01/26/21 Rx mg) tablet,extended release acetaminophen 325 mg tablet 650 mg PO PRN PRN 01/26/21 01/26/21 History Allergies Allergy/AdvReac Type Severity Reaction Status Date / Time No Known Drug Allergies Allergy Verified 08/18/20 09:03 Review of Systems Review of Systems ROS: Yes All systems reviewed with the patient and are negative except as otherwise documented Exam Vital Signs (past 8 hours): - 01/26/21 19:50 01/26/21 23:00 Temperature 97.6 F 98.5 F Pulse Rate 68 56 L Respiratory Rate 16 16 Blood Pressure 147/68 H 134/70 Pulse Oximetry 97 97 Oxygen Delivery Method Room Air Oxygen Flow Rate 0 Narrative Exam Narrative: Gen: Alert, oriented, well-developed 80 y.o. female, appears younger than stated age HEENT: normocephalic, atraumatic, conjunctiva clear, limited vision in left eye sclera non-icteric, oral mucosa pink and moist Neck: supple, full ROM, no JVD, trachea is midline Resp: Lungs CTA, non-labored breathing CV: RRR, no murmur or rubs Abd: soft, non-tender, normoactive BTs Skin: no lesions or rashes, dry and intact Neuro: Alert and oriented X 4 w/no focal deficits. Speech clear and coherent. CN II-IX wnl Extremities: moves all 4 extremities, is ambulatory, negative Crissy?s sign Psyche: normal mood and affect. Objective Labs Result Diagrams: 01/26/21 12:38 01/26/21 13:21 Labs: Laboratory Results - last 24 hr 01/26/21 01/26/21 01/26/21 12:38 12:38 12:38 WBC 6.4 RBC 3.78 L Hgb 12.7 Hct 37.4 MCV 99.1 MCH 33.7 MCHC 34.0 RDW 13.6 Plt Count 241 Neut % (Auto) 55.1 Lymph % (Auto) 25.9 [place] % (Auto) 10.7 Eos % (Auto) 7.1 H Baso % (Auto) 1.2 Neut # (Auto) 3500 Lymph # (Auto) 1600 [place] # (Auto) 700 Eos # (Auto) 500 H Baso # (Auto) 100 PT 11.2 INR 1.0 APTT 35 D Sodium Potassium Chloride Carbon Dioxide BUN Creatinine Estimated GFR BUN/Creatinine Ratio Glucose Hemoglobin A1c Calcium Magnesium Total Creatine Kinase 38 CK-MB (CK-2) TNP CK-MB (CK-2) Rel Index TNP Troponin I < 0.012 U Opiates 300ng/mL cut Ur Oxycodone Screen Urine Methadone Screen Ur Barbiturates Screen U Tricyclic Antidepress Ur Phencyclidine Scrn Ur Amphetamines Screen U Methamphetamines Scrn Ur MDMA Scrn (Ecstasy) U Benzodiazepines Scrn Urine Cocaine Screen U Marijuana (THC) Screen SARS-CoV-2 (PCR) 01/26/21 01/26/21 01/26/21 12:38 12:38 13:21 WBC RBC Hgb Hct MCV MCH MCHC RDW Plt Count Neut % (Auto) Lymph % (Auto) [place] % (Auto) Eos % (Auto) Baso % (Auto) Neut # (Auto) Lymph # (Auto) [place] # (Auto) Eos # (Auto) Baso # (Auto) PT INR APTT Sodium 133 L Potassium 4.1 Chloride 94 L Carbon Dioxide 30 BUN 15 Creatinine 0.51 L Estimated GFR > 60.0 BUN/Creatinine Ratio 29.4 H Glucose 138 H Hemoglobin A1c 5.5 Calcium 10.0 Magnesium 1.5 L Total Creatine Kinase CK-MB (CK-2) CK-MB (CK-2) Rel Index Troponin I U Opiates 300ng/mL cut Ur Oxycodone Screen Urine Methadone Screen Ur Barbiturates Screen U Tricyclic Antidepress Ur Phencyclidine Scrn Ur Amphetamines Screen U Methamphetamines Scrn Ur MDMA Scrn (Ecstasy) U Benzodiazepines Scrn Urine Cocaine Screen U Marijuana (THC) Screen SARS-CoV-2 (PCR) 01/26/21 01/26/21 13:29 13:58 WBC RBC Hgb Hct MCV MCH MCHC RDW Plt Count Neut % (Auto) Lymph % (Auto) [place] % (Auto) Eos % (Auto) Baso % (Auto) Neut # (Auto) Lymph # (Auto) [place] # (Auto) Eos # (Auto) Baso # (Auto) PT INR APTT Sodium Potassium Chloride Carbon Dioxide BUN Creatinine Estimated GFR BUN/Creatinine Ratio Glucose Hemoglobin A1c Calcium Magnesium Total Creatine Kinase CK-MB (CK-2) CK-MB (CK-2) Rel Index Troponin I U Opiates 300ng/mL cut Negative Ur Oxycodone Screen Negative Urine Methadone Screen Negative Ur Barbiturates Screen Negative U Tricyclic Antidepress Negative Ur Phencyclidine Scrn Negative Ur Amphetamines Screen Negative U Methamphetamines Scrn Negative Ur MDMA Scrn (Ecstasy) Negative U Benzodiazepines Scrn Negative Urine Cocaine Screen Negative U Marijuana (THC) Screen Negative SARS-CoV-2 (PCR) Negative Assessment & Plan Assessment & Plan narrative: Brenda Gil is placed into observation to rule out a TIA. 1. Cardiac telemetry NIH score greater than 5 [X]no, NIH scoring and neuro checks q shift Dual antiplatelet therapy: Yes [X ]initiate dual antiplatelet therapy with clopidogrel 75 mg p.o. daily and aspirin 81 mg p.o. daily MR stroke scheduled for today Complete Echo with bubble study for today PT/OT/ST evaluation Hypertension, acute with an admission bp of 166/88, present on admission Allow for permissive hypertension of 220/110 HR 60 to allow for brain perfusion Allow for permissive hypertension for brain profusion of a systolic of 220 and a diastolic of 105. IV labetolol if his systolic exceeds 220 or diastolic greater than 105. HLD Fasting lipid panel, pending for 0500 labs Atorvastatin 40 mg po at bedtime Risk stratification Fasting lipid panel pending for the morning A1c is 5.5 % [X] not diabetic VTE Prophylaxis: Wells risk score 0 Bilateral SCDs Patient is placed into observation as her stay is not expected to exceed 2 midnights. FEN: IV fluids: saline lock, diet: heart healthy, labs: CBC, C/BMP, liver enzymes, Mag, Consultants None Dispo: probable discharge to home Code status: DNR as discussed with the patient who identifies Wero Lerma, as her surrogate and POA. I confirmed that the patient's advanced care plan is present, code status is determined, or surrogate decision maker is listed on the patient's medical record. [X] I have utilized all available immediate resources to obtain, update, or review of the patient's current medications [X] The patient has current or prior documentation of the left ventricular ejection fraction (LEVF) less than 40% or moderate or severely depressed left ventricular systolic function. [] Yes [X] No COVID-19 COVID-19 status: Negative Result date/Date tested (Pos, Neg/Pending): 01/26/21 Scores Wells' Criteria for PE Clinical signs and symptoms of DVT: No PE is #1 Dx or equally likely: No Heart rate > 100: No Immobilization at least 3 days or surg in previous 4 weeks: No History of PE or DVT: No Hemoptysis: No Malignancy w/Treatment within 6 months or palliative: No Wells' PE Score total: 0
[2021-01-27] MEDS: MAGNESIUM SULFATE 2 GM/50 ML PIGGYBACK IV (02:11)
[2021-01-27] MEDS: ACETAMINOPHEN 325 MG TABLET 650 MG PO (02:36)
[2021-01-27 05:02] VITALS: BP 123/60; PULSE 53; RESP 16; TEMP 36.6; O2SAT 96
[2021-01-27 06:59] LABS: Add Manual Diff / Slide Review NO; Basophils Absolute Auto 0 /uL (0-100); Basophils Percent Auto 0.3 % (0-2); Eosinophils Absolute Auto 500 /uL (0-450); Eosinophils Percent Auto 7.8 % (2-4); Hematocrit 39.7 % (36-46); Hemoglobin 13.4 g/dL (12.0-16.0); Lymphocytes Absolute Auto 1700 /uL (1100-4500); Lymphocytes Percent Auto 25.8 % (25-40); Mean Corpuscular HGB Conc 33.7 % (30-36); Mean Corpuscular Hemoglobin 33.5 PG (26-34); Mean Corpuscular Volume 99.5 fL (80-100); Monocytes Absolute Auto 700 /uL (0-900); Monocytes Percent Auto 10.2 % (3-14); Neutrophils Absolute Auto 3600 /uL (1500-7000); Neutrophils Percent Auto 55.9 % (50-75); Platelet Count 249 X10^3/uL (150-400); Red Blood Cell Count 3.99 X10^6/uL (4.0-5.2); Red Cell Distribution Width 13.5 % (11.6-14.8); White Blood Cell Count 6.5 X10^3/uL (4.5-11.0)
[2021-01-27 07:07] LABS: Alanine Aminotransferase 18 IU/L (<35); Albumin 4.8 g/dL (3.5-5.0); Albumin Globulin Ratio 1.3 (1.0-2.8); Alkaline Phosphatase 70 U/L (38-126); Aspartate Aminotransferase 33 IU/L (14-36); BUN Creatinine Ratio 25.4 (6-22); Bilirubin Total 0.9 mg/dL (0.2-1.3); Bilirubin Unconjugated 0.8 mg/dL (0.0-1.1); Blood Urea Nitrogen 15 mg/dL (7-17); Calcium 9.6 mg/dL (8.4-10.2); Carbon Dioxide 29 mmol/L (22-32); Chloride 97 mmol/L (98-107); Cholesterol 233 mg/dL (140-199); Estimated Glomerular Filt Rate > 60.0 mL/min (>60); Globulin 3.7 g/dL (1.7-4.1); Glucose 114 mg/dL (80-110); HDL Cholesterol 85 mg/dL (40-60); HEMOLYSIS < 15 (0-50); LDL Cholesterol Calculated 128 mg/dL (<100); Magnesium 2.2 mg/dL (1.6-2.3); Potassium 3.8 mmol/L (3.4-5.1); Sodium 135 mmol/L (137-145); Total Protein 8.5 g/dL (6.3-8.2); Triglycerides 98 mg/dL (35-150)
[2021-01-27 07:36] LABS: Thyroid Stimulating Hormone 4.45 uIU/mL (0.47-4.68)
--- NOTE | 2021-01-27 07:55 | PC.NURSE ---
Patient resting in bed, ECHO completed first thing this morning with results pending. Patient denies symptoms other than I still have a little headache, but the tylenol made it better. Call light within reach, continue to monitor.
[2021-01-27 08:02] VITALS: BP 177/76; PULSE 55; RESP 16; TEMP 36.1; O2SAT 96
[2021-01-27] MEDS: CLOPIDOGREL 75 MG TABLET PO (08:50)
[2021-01-27] MEDS: SODIUM CHLORIDE 0.9% FLUSH 10 ML IV (08:50)
[2021-01-27] MEDS: lisinopriL 10 MG TABLET PO (08:50)
[2021-01-27] MEDS: ASPIRIN EC 81 MG TABLET PO (08:50)
[2021-01-27 09:01] VITALS: O2SAT 94
--- NOTE | 2021-01-27 09:33 | CM.DANOTE ---
DCP: Case received, EMR reviewed and met with patient. Introduced self and role. Was able to obtain information regarding patient's baseline activity status prior to hospitalization. DCP assessment completed with information currently available. Patient is a 80 year old female who admitted yesterday afternoon to the care of the hospitalist team. PCP: Dr. Clay. Payer: confirmed: Medicare. Patient came to the hospital via ambulance secondary to having symptoms of left sided numbness to her face, lips, and tongue. She also was having head ache. She holds current diagnosis of TIA, and is expected to have an MRI today. Met with patient in her room. She was sitting up in bed, having breakfast. She is pleasant, alert and orietned. Confirmed that she resides here in [place] with her spouse, Grover. She is independent at her baseline. She indicated, the symptoms of numbness have resolved. She is getting ready to have her MRI. She will also be working with therapy. P: DCP to continue to follow, and will be available for any resources needed. Patient should be able to go home after results of test, and working with Marichuy Steiner RN/[employer]sc[employer] Director
[2021-01-27] MEDS: FOLIC ACID 0.4 MG TABLET PO (09:35)
--- NOTE | 2021-01-27 09:55 | PT.IIE ---
Surgical History (Last Reviewed 01/26/21 @ 13:42 by Jaelyn Ga DO) Status post partial mastectomy Medical History (Last Updated 01/27/21 @ 01:10 by LILI Matias) Arthritis Bilateral nephrolithiasis Bilateral ureteral calculi Breast cancer Breast cancer, right Diverticulitis Glaucoma History of nephrolithiasis HLD (hyperlipidemia) (11/21/11) HTN (hypertension) Hyperlipidemia Physical Therapy Inpatient Evaluation/Re-Eval M1 PT/OT-IP Prior Functional Status Start: 01/27/21 12:50 Freq: NEEDED Status: Active Protocol: Document 01/27/21 11:55 [facility] (Rec: 01/27/21 13:16 [facility] [id number]) Medical Review Prior Functional Status Medical History Reviewed Yes Communication Independent. Mobility and Gait Pt states did not use any devices to walk with however at times use of walkings stick when out hiking. Activities of Daily Living and IADL's Pt states had a housekeeping to clean the house , otherwise independent with all ADl , IADl and driving needs. Social History Household Members spouse Living Arrangements House Number of Stairs To Enter/Railing? 2 steps from the garage. Home Environment Standard Height Toilet,Walk in Shower Additional Social History Comment Pt states has walking sticks. M2 PT-IP Current Condition Start: 01/27/21 13:37 Freq: NEEDED Status: Active Protocol: Document 01/27/21 09:55 [facility] (Rec: 01/27/21 13:50 AB [email or web address]) Physical Therapy Current Condition Current Condition Evaluation Date 01/27/21 Treatment Diagnosis TIA; difficulty in walking Onset Date 01/26/21 M3 PT-IP Subjective Start: 01/27/21 13:37 Freq: NEEDED Status: Active Protocol: Document 01/27/21 09:55 [facility] (Rec: 01/27/21 13:50 AB [email or web address]) Subjective Physical Therapy Visit Type Type Initial Evaluation Visit Start Time 09:55 Visit Stop Time 10:15 Total Visit Minutes 20 Number of OTOLARYNGOLOGY TEACHER Visits 0 Physical Therapy Visit Comments Patient Comments pt is agreeable to do PT Therapy Pain Assessment Pain Present Pain Present Denied Pain M4 PT-IP Mobility and Gait Start: 01/27/21 13:37 Freq: NEEDED Status: Active Protocol: Document 01/27/21 09:55 [facility] (Rec: 01/27/21 13:50 AB [email or web address]) PT-Bed Mobility Assessment Supine to Sit Supine to Sit Independent Sit to Supine Sit to Supine Independent PT-Transfer Assessment Sit to and From Stand Sit to and from Stand Independent Equipment Transfer Assistive Device None Orthotic/Prosthetic Devices or Brace: No Transfers Transfer Destination Bed,Chair Transfer Technique ambulated Transfer Ability Level of Assist Independent Comments Mobility Comments pt sitting by window bench. demonstrated transfer to bed without AD independent as well as bed mobility. pt has no c /o dizziness/ h/a or weakness. ambulated in the hallway without AD SBA ~ 250 ft. has slight antalgic gait with lateral side lean to the R with gait deviation but without LOB. completed up/ down stair without rails SBA. ambulated back to the room. demonstrated sit<>stand x 5 assessment and completed in 13 sec. mechatronics technician came in to take pt for MRI. informed pt that no PT intervention needed at this time and pt agreed. Left pt with nurse and mechatronics technician . Gait Assessment Gait Gait Assistance Required: Standby Assistance Distance (Feet) 250 Able to Maintain Weight Bearing Status Yes During Gait Assistive Devices Assistive Device None Orthotic/Prosthetic Devices or Brace: No Gait Deviations General Gait Pattern Antalgic Stair Climbing Assessment Evaluation Level of Assist On Stairs Standby Assistance Devices Stair Climbing Assistive Devices None Technique/Endurance Stair Climbing Direction Ascend and Descend Stair Climbing Technique Step Over Step Number of Steps Climbed 3 Query Text: Stair Climbing Set # Repetitions (reps) 1 PT-Balance Assessment Sitting Balance and Reactions Static Sitting Balance Ability Normal Dynamic Sitting Balance Ability Normal Standing Balance and Reactions Static Standing Balance Ability Good Dynamic Standing Balance Ability Good Device Used without AD M5 PT-IP Objective Assessments Start: 01/27/21 13:37 Freq: NEEDED Status: Active Protocol: Document 01/27/21 09:55 [facility] (Rec: 01/27/21 13:50 AB [email or web address]) Orientation Orientation/Cognition Level of Alertness Alert Orientation Name,Age,Birthday,Month,Date, Year,Day of Week,Place, Situation Language Function Ability No Deficits Noted Safety Awareness Understands Safety Issues Gross Range of Motion Lower Extremity ROM Assessment Within Functional Limits Strength Lower Extremity Strength Assessment Within Functional Limits Coordination Assessment Gross Coordination Gross Coordination WNL Sensation Assessment Sensation Gross Sensation WNL Muscle Tone Muscle Tone WNL Yes M6 PT-IP Treatment Start: 01/27/21 13:37 Freq: NEEDED Status: Active Protocol: Document 01/27/21 09:55 [facility] (Rec: 01/27/21 13:50 AB [email or web address]) Physical Therapy Treatment Education Education Provided Safety M7 PT-IP Assessment and Plan Start: 01/27/21 13:37 Freq: NEEDED Status: Active Protocol: Document 01/27/21 09:55 [facility] (Rec: 01/27/21 13:50 AB [email or web address]) PT Summary Assessment and Plan Potential Rehabilitation Potential Good Status of Condition at Evaluation Stable Summary Progress Towards Goals Safe For Discharge Assessment Summary PT eval completed and no further PT intervention indicated at this time. pt is at PLOF. independent with bed mobility and transfers. provided SBA during ambulation assessment for safety but can be independent. demonstrated ambulation with gait deviation but without LOB. Frequency of Treatment Frequency Of Treatment Discharge Recommendations To Nursing Amount of Assist Needed Independent Discharge Recommendations PT Discharge Recommendations Home Transportation Needs at Discharge Private Vehicle
--- NOTE | 2021-01-27 11:09 | ST.IPSCREEN ---
Screened Brenda for speech, swallowing, and cognition. Brenda demonstrated speech sounds WNL and 100% intelligibility when conversing with clinician. Cognitive skills appear to be WNL, as evidenced by her ability to ask and answer questions appropriately, follow directions, and ask clarifying questions when she did not understand what was asked of her. Completed oral mechanism exam and swallow screen with water through a straw. Velum deviated to left at rest and in motion, but does not appear to impact her speech or swallowing. Strength, ROM and coordination of tongue, jaw, and lips were within functional limits for the purposes of speech and swallowing. No indication speech therapy is required at this time.
[2021-01-27 12:18] VITALS: BP 134/60; PULSE 60; RESP 18; TEMP 36.4; O2SAT 97
--- NOTE | 2021-01-27 12:27 | OT.IP.EVAL ---
Past Medical History (Last Updated 01/27/21 @ 01:10 by LILI Matias) Arthritis Bilateral nephrolithiasis Bilateral ureteral calculi Breast cancer Breast cancer, right Diverticulitis Glaucoma History of appendectomy (03/06/19) History of lithotripsy (~1981) History of nephrolithiasis History of surgery HLD (hyperlipidemia) (11/21/11) HTN (hypertension) Hyperlipidemia Status post cholecystectomy Surgical History (Last Reviewed 01/26/21 @ 13:42 by Jaelyn Ga DO) History of appendectomy (03/06/19) History of lithotripsy (~1981) History of surgery Status post cholecystectomy Status post partial mastectomy Occupational Therapy Inpatient Evaluation/Re-Eval M1 PT/OT-IP Prior Functional Status Start: 01/27/21 12:50 Freq: NEEDED Status: Active Protocol: Document 01/27/21 11:55 [facility] (Rec: 01/27/21 13:16 [facility] [id number]) Medical Review Prior Functional Status Medical History Reviewed Yes Communication Independent. Mobility and Gait Pt states did not use any devices to walk with however at times use of walkings stick when out hiking. Activities of Daily Living and IADL's Pt states had a housekeeping to clean the house , otherwise independent with all ADl , IADl and driving needs. Social History Household Members spouse Living Arrangements House Number of Stairs To Enter/Railing? 2 steps from the garage. Home Environment Standard Height Toilet,Walk in Shower Additional Social History Comment Pt states has walking sticks. M2 OT-IP Current Condition Start: 01/27/21 12:50 Freq: Status: Active Protocol: Document 01/27/21 11:55 [facility] (Rec: 01/27/21 13:16 [facility] [id number]) Occupational Therapy Current Condition Current Condition Evaluation Date 01/27/21 Treatment Diagnosis TIA Diagnosis Onset Date 01/26/21 M3 OT- IP Subjective and Pain Start: 01/27/21 12:50 Freq: Status: Active Protocol: Document 01/27/21 11:55 [facility] (Rec: 01/27/21 13:16 [facility] [id number]) OT- Subjective Occupational Therapy Visit Type Type Initial Evaluation Visit Start Time 11:55 Visit Stop Time 12:27 Total Visit Minutes 32 Occupational Therapy Visit Comments Patient Comments Pt agreed to do OT eval. Patient/Caregiver Goals To go home. OT Pain Assessment Pain When Pain Assessed At Rest Pain Present Pain Present Denied Pain M4 OT- IP ADL's Start: 01/27/21 12:50 Freq: Status: Active Protocol: Document 01/27/21 11:55 [facility] (Rec: 01/27/21 13:16 [facility] [id number]) OT RAB-Hvhg-Zpxlesz General Evaluation Self-Feeding Ability Independent OT ADL-Grooming Comments OT Grooming Comments Pt states did prior. OT ADL-Dressing Comments OT Dressing Comments Pt insists that she has no issues for any dressing needs. OT ADL-Toileting Comments OT Toileting Comments Pt states has been able to do on her own. OT ADL-Bathing Comments OT Bathing Comments Pt not wanting to shower here at the hospital. M6 OT- IP Functional Cognition Start: 01/27/21 12:50 Freq: Status: Active Protocol: Document 01/27/21 11:55 [facility] (Rec: 01/27/21 13:16 [facility] [id number]) Cognitive Factors Limiting Selfcare Function Cognitive Ability Level of Alertness Alert Patient Orientation Name,Age,Birthday,Month,Date, Year,Day of Week,Place, Situation Attention Span Ability Capable of Focused Attention, Capable of Sustained Attention Ability to Follow Commands Able to Follow One Step Commands Memory Description Short Term Impaired,Working Impaired Safety Awareness Underestimates Need for Assistance Problem Solving Ability Needs Assist to Identify Solutions Executive Function Ability Unable to Switch Focus,Unable to Organize Plans,Unable to Remember Details Cognitive Comments Cognitive Assessment Comments Pt scored 235 seconds on [place] Making Part B which implies severe impairment for visual attention, speed of processing , executive functioning, mental flexibility and task switching. Per [employer], a score above 180 seconds implies someone more apt to get into a car accident. Pt having trouble to figure out a 3- variable chart for trying to look up her percentile for her age group and sex for 9 hole peg test. 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 M7 OT- IP Mobility and Balance Start: 01/27/21 12:50 Freq: Status: Active Protocol: Document 01/27/21 11:55 [facility] (Rec: 01/27/21 13:16 [facility] [id number]) OT-Transfer Assessment Sit to and From Stand Sit to and from Stand Standby Assistance Transfers Transfer Ability Standby Assistance Technique Transfer Destination Bed,Chair Devices Transfer Assistive Devices None Comments Mobility Comments SBA in the room for level surfaces. OT- Balance Assessment Sitting Balance and Reactions Static Sitting Balance Ability Normal Dynamic Sitting Balance Ability Good Standing Balance and Reactions Static Standing Balance Ability Good Dynamic Standing Balance Ability Fair M9 OT- IP Assessment and Plan Start: 01/27/21 12:50 Freq: Status: Active Protocol: Document 01/27/21 11:55 [facility] (Rec: 01/27/21 13:16 [facility] [id number]) OT Summary Assessment and Plan Potential Rehabilitation Potential Good Analytic Complexity at Evaluation Low Summary OT Impairments Balance,Functional Cognition, Bathing Progress Towards Goals Progressing Toward Goals Assessment Summary Pt MOD complexity and here due to possible TIA. Pt's main barriers are steps, dynamic balance, executive cognitive functioning, and would benefit from her to provide supervision with her needs. Pt scored 235 seconds on [place] Making Part B which implies severe impairment for visual attention, speed of processing , executive functioning, mental flexibility and task switching. Per [employer], a score above 180 seconds implies someone more apt to get into a car accident. Pt having trouble to figure out a 3- variable chart for trying to look up her percentile for her age group and sex for 9 hole peg test. Pt states feel that she did not sleep well and also wanting to stop completing OT eval at this time and just wanting to go home. Goals Bathing Goal Independent Shower Transfer Goal Independent Days to Meet Goals 1 Frequency of Treatment Frequency Of Treatment Once a Day Treatment Plan OT Treatment Plan ADL Training,Functional Cognition Training,Functional Mobility,Patient/Family Education,Discharge Planning Other Treatment Recommendations and Next Reassess [place] Making Part B Treatment Focus if pt still here and shower. Discharge Recommendations OT Discharge Recommendations Home with Assistance Transportation Needs at Discharge Private Vehicle
--- NOTE | 2021-01-27 13:14 | PM.DS.1 ---
History of Present Illness History of Present Illness Date Patient Seen: 01/27/21 Time Patient Seen: 13:15 Chief complaint: Headache/TIA Narrative: Per LILI Matias: Brenda Lerma is a 80 year old female with past history of right-sided breast cancer, hypertension, and glaucoma presented after having a series of symptoms today that felt like she was having a stroke.? Initially she felt like she had weakness in her left hand when trying to slice apart a sandwich.? This was followed by tingling sensation in her left lip and then her tongue which then resolved.? And then started to have a headache, and after either waking up in the morning or waking up after a nap she felt like the headache was not as bad.? She did notify her who called EMS to have her taken to the emergency department.? She denies any fevers sweats or chills, difficulty swallowing, shortness of breath, dizziness, chest pain or palpitations, nausea or vomiting, dysuria, diarrhea constipation, weakness or tingling of the lower extremities.? She does endorse urinating more than usual and that she has always chilly. Patient's head CT and CTA were both negative for a acute process.? ED NIH score was 1. Currently her vitals are 98.5, blood pressure 134/70, heart rate 56, respiratory rate 16, oxygen saturation 97% on room air, she weighs 61.3 kg with a BMI of 22.5.? CBC is unremarkable, she is slightly hyponatremic with a sodium of 133, potassium within normal limits of 4.1, chloride 94, creatinine 0.51, GFR is within normal limits, glucose is 138, magnesium is 1.5, troponin is within normal limits, negative urine toxicology, COVID-19 PCR is negative. Discharge Providers Provider Date of admission: 01/26/21 14:58 Discharge Date: 01/27/21 Primary care physician: Alex Clay MD Consults: 01/27/21 01:28 Consult to Occupational Therapy Evaluate & Treat Comment: ?TIA Physician Instructions: Evaluate and treat Consult to Physical Therapy Evaluate & Treat Comment: ?TIA Physician Instructions: Evaluate and Treat Consult to Speech Therapy Evaluate & Treat Comment: ?TIA Physician Instructions: Evaluate and treat Discharge provider: Kings Clayton DO Summary Hospital Course Discharge Diagnosis: 1.?TIA 2. Hypertension, acute on chronic 3. HLD, chronic 4. L visual impairment, chronic Hospital Course: This is a 72-year-old female with a past medical history of hypertension and hyperlipidemia who was admitted for stroke-like symptoms including unilateral weakness and facial tingling. Patient's symptoms were on the left mostly and lasted for about 20 minutes. She had unremarkable imaging studies including CT and MRI which did not reveal an acute infarct, although she did have mild bilateral carotid stenosis. Her echocardiogram was also unremarkable and did not show evidence of PFO, reduced ejection fraction, or wall motion abnormalities. Given her ABCD2 score of 5, the patient is recommended to continue on aspirin lifelong therapy, and additionally clopidogrel for 21 days for stroke reduction. Discussed with the patient starting statin therapy, and the patient revealed that she has tried multiple statins in the past, with different dosing, and had difficulty tolerating these medications due to muscle aches. We discussed risk reduction strategies, and the patient was agreeable to starting low-dose atorvastatin at 10 mg, with possible further up titration to high intensity dosing if tolerated with her primary care provider. Exam Vital Signs (past 8 hours): - 01/27/21 08:02 01/27/21 09:01/27/21 12:18 Temperature 96.9 F L 97.6 F Pulse Rate 55 L 60 Respiratory Rate 16 18 Blood Pressure 177/76 H 134/60 Pulse Oximetry 96 94 97 Oxygen Delivery Method Room Air Oxygen Flow Rate 0 Narrative Exam Narrative: Gen: Alert, oriented, well-developed 80 y.o. ? female, appears younger than stated age HEENT: normocephalic, atraumatic, conjunctiva clear, limited vision in left eye sclera non-icteric, oral mucosa pink and moist Neck: supple, full ROM Resp: Lungs CTA, non-labored breathing CV: RRR, no murmur or rubs Skin: no lesions or rashes, dry and intact Neuro: Alert and oriented X 4 w/no focal deficits. Speech clear and coherent. CN II-IX wnl Extremities: no edema or joint effusions Psych: normal mood and affect. Objective Labs Result Diagrams: 01/27/21 06:40 01/27/21 06:40 Labs: Laboratory Results - last 24 hr 01/26/21 01/26/21 01/26/21 12:38 12:38 12:38 WBC RBC Hgb Hct MCV MCH MCHC RDW Plt Count Neut % (Auto) Lymph % (Auto) [place] % (Auto) Eos % (Auto) Baso % (Auto) Neut # (Auto) Lymph # (Auto) [place] # (Auto) Eos # (Auto) Baso # (Auto) Sodium Potassium Chloride Carbon Dioxide BUN Creatinine Estimated GFR BUN/Creatinine Ratio Glucose Hemoglobin A1c 5.5 Calcium Magnesium 1.5 L Total Bilirubin Conjugated Bilirubin Unconjugated Bilirubin AST ALT Alkaline Phosphatase Troponin I < 0.012 Total Protein Albumin Globulin Albumin/Globulin Ratio Triglycerides Cholesterol LDL Cholesterol, Calc HDL Cholesterol TSH U Opiates 300ng/mL cut Ur Oxycodone Screen Urine Methadone Screen Ur Barbiturates Screen U Tricyclic Antidepress Ur Phencyclidine Scrn Ur Amphetamines Screen U Methamphetamines Scrn Ur MDMA Scrn (Ecstasy) U Benzodiazepines Scrn Urine Cocaine Screen U Marijuana (THC) Screen SARS-CoV-2 (PCR) 01/26/21 01/26/21 01/26/21 13:21 13:29 13:58 WBC RBC Hgb Hct MCV MCH MCHC RDW Plt Count Neut % (Auto) Lymph % (Auto) [place] % (Auto) Eos % (Auto) Baso % (Auto) Neut # (Auto) Lymph # (Auto) [place] # (Auto) Eos # (Auto) Baso # (Auto) Sodium 133 L Potassium 4.1 Chloride 94 L Carbon Dioxide 30 BUN 15 Creatinine 0.51 L Estimated GFR > 60.0 BUN/Creatinine Ratio 29.4 H Glucose 138 H Hemoglobin A1c Calcium 10.0 Magnesium Total Bilirubin Conjugated Bilirubin Unconjugated Bilirubin AST ALT Alkaline Phosphatase Troponin I Total Protein Albumin Globulin Albumin/Globulin Ratio Triglycerides Cholesterol LDL Cholesterol, Calc HDL Cholesterol TSH U Opiates 300ng/mL cut Negative Ur Oxycodone Screen Negative Urine Methadone Screen Negative Ur Barbiturates Screen Negative U Tricyclic Antidepress Negative Ur Phencyclidine Scrn Negative Ur Amphetamines Screen Negative U Methamphetamines Scrn Negative Ur MDMA Scrn (Ecstasy) Negative U Benzodiazepines Scrn Negative Urine Cocaine Screen Negative U Marijuana (THC) Screen Negative SARS-CoV-2 (PCR) Negative 01/27/21 01/27/21 01/27/21 06:40 06:40 06:40 WBC 6.5 RBC 3.99 L Hgb 13.4 Hct 39.7 MCV 99.5 MCH 33.5 MCHC 33.7 RDW 13.5 Plt Count 249 Neut % (Auto) 55.9 Lymph % (Auto) 25.8 [place] % (Auto) 10.2 Eos % (Auto) 7.8 H Baso % (Auto) 0.3 Neut # (Auto) 3600 Lymph # (Auto) 1700 [place] # (Auto) 700 Eos # (Auto) 500 H Baso # (Auto) 0 Sodium 135 L Potassium 3.8 Chloride 97 L Carbon Dioxide 29 BUN 15 Creatinine 0.59 Estimated GFR > 60.0 BUN/Creatinine Ratio 25.4 H Glucose 114 H Hemoglobin A1c Calcium 9.6 Magnesium 2.2 Total Bilirubin 0.9 Conjugated Bilirubin 0.0 Unconjugated Bilirubin 0.8 AST 33 ALT 18 Alkaline Phosphatase 70 Troponin I Total Protein 8.5 H Albumin 4.8 Globulin 3.7 Albumin/Globulin Ratio 1.3 Triglycerides 98 Cholesterol 233 H LDL Cholesterol, Calc 128 H HDL Cholesterol 85 H TSH 4.45 U Opiates 300ng/mL cut Ur Oxycodone Screen Urine Methadone Screen Ur Barbiturates Screen U Tricyclic Antidepress Ur Phencyclidine Scrn Ur Amphetamines Screen U Methamphetamines Scrn Ur MDMA Scrn (Ecstasy) U Benzodiazepines Scrn Urine Cocaine Screen U Marijuana (THC) Screen SARS-CoV-2 (PCR) [facility] Medical History (Updated 01/27/21 @ 01:10 by LILI Matias) Arthritis Bilateral nephrolithiasis Bilateral ureteral calculi Breast cancer Breast cancer, right Diverticulitis Glaucoma History of nephrolithiasis HLD (hyperlipidemia) (11/21/11) HTN (hypertension) Hyperlipidemia Surgical History History of appendectomy (03/06/19) History of lithotripsy (~1981) History of surgery Status post cholecystectomy Status post partial mastectomy Family History (Updated 01/27/21 @ 01:12 by LILI Matias) Sister Cancer TIA (transient ischemic attack) Aneurysm Mother Hypertension Polycythemia vera Father Polycythemia vera Social History marital status: household members: spouse Smoking Status: Former smoker second hand exposure: Yes alcohol intake: current caffeine: Yes Discharge Plan Discharge Plan Patient Disposition: Home Provider Discharge Comment: You were admitted to the hospital with a TIA. Medications were started to lower your risk of stroke in the future. Aspirin will be for your lifetime, plavix for 21 days. As discussed recommend any amount of atorvastatin you can tolerate, will start with low dose for now. No BP medication changes necessary at this time. Please follow up with PCP in 1-2 weeks. Discharge orders & Medications Prescriptions: New clopidogrel 75 mg Tablet 75 mg PO DAILY 21 Days Qty: 21 RF: 0 aspirin 81 mg Tablet,Delayed Release (Dr/Ec) 81 mg PO DAILY 30 Days Qty: 30 RF: 0 atorvastatin 10 mg tablet 10 mg PO BEDTIME 30 Days Qty: 30 RF: 0 Continued timolol maleate 0.5 % drops 1 drp EYE-BOTH BID Qty: 0 RF: 0 cetirizine [Aller-Amna] 10 mg Tablet 10 mg PO DAILY Qty: 0 RF: 0 cyanocobalamin (vitamin B-12) [Vitamin B-12] 1,000 mcg Tablet 1,000 mcg PO DAILY RF: 0 calcium citrate-vitamin D3 200 mg calcium -250 unit Tablet 2 tab PO DAILY RF: 0 folic acid 400 mcg Tablet 0.4 mg PO DAILY RF: 0 acetaminophen 325 mg tablet 650 mg PO PRN PRN (Reason: pain) RF: 0 hydrochlorothiazide 25 mg tablet 25 mg PO DAILY RF: 0 potassium citrate 10 mEq (1,080 mg) tablet extended release 10 meq PO TID Qty: 270 RF: 3 Follow up/Referrals: Alex Clay MD [Primary Care Provider] - Diet/Activity/Treatments Diet: Diet as Tolerated and Low-sodium Activity: As tolerated Visit Report/Discharge Packet Instructions: Statin Drugs, Clopidogrel (Alternative Therapy), DI for Transient Ischemic Attack Discharge Data Primary Care Provider: Alex Clay V Attending Provider: Virginia Henao
--- NOTE | 2021-01-27 14:12 | PC.NURSE ---
Discharge order received and patient is eager for discharge to home with her . IV dc'd intact. Patient states she has a follow up appointment already scheduled with Dr. Clay (PCP). Discharge instructions, information handouts, and new medications reviewed with patient and Patient states understanding and has no further questions or concerns at this time. Waiting for cone picker from her .
== END 2021-01-27 14:30 | disposition home or self-care (01) ==
LOC: ED 14:55 → AC 15:01
PROVIDERS: Nurse Practitioner Family; Admitting Provider Internal Medicine; Emergency Provider Emergency Medicine; PCP Internal Medicine; Referring Provider Emergency Medicine; Visit Provider Internal Medicine
DX: G45.9 Transient cerebral ischemic attack, unspecified (principal); R51.9 Headache, unspecified; R20.0 Anesthesia of skin; H54.62 Unqualified visual loss, left eye, normal vision right eye; R29.701 NIHSS score 1; H40.9 Unspecified glaucoma; I10 Essential (primary) hypertension; E78.5 Hyperlipidemia, unspecified; Z20.822 Contact with and (suspected) exposure to COVID-19
CPT/HCPCS: 36415; 70450; 70496; 70498; 70548; 70553; 80048; 80061; 80076; 80305; 81003; 82550; 82962; 83036; 83735; 84443; 84484; 85025; 85610; 85730; 87635; 93005; 93306; 94760; 96361; 96374; 97161; 97166; 99285; C9803; G0378; J0360; J3475

== ENCOUNTER → 2021-03-28 10:12 | Outpatient (CLI) | payer MEDICARE, OTHER, SELFPAY ==
[2021-01-26 17:03] VITALS: BMI 22.5
--- NOTE | 2021-03-28 10:16 | DI.RAD.S_ITS ---
PROCEDURE: XR KUB INDICATIONS: hypocitraturia TECHNIQUE: One view of the abdomen acquired. COMPARISON: [facility], CR, XR KUB, 09/14/2020, 16:19. FINDINGS: Surgical changes and devices: Is present. Right hip arthroplasty is present. Bowel: Bowel gas pattern is nonspecific. Fluid level is noted within the left abdomen. Significant colonic stool Soft tissues: No suspicious abdominal calcifications. Visualized solid organ contours appear normal in size. Bones: No suspicious bony lesions. IMPRESSION: Significant colonic stool. Overall gas pattern is nonspecific with left abdomen fluid level. Ileus versus developing partial obstruction cannot be excluded.. Dictated by: Trina Ambrosio M.D. on 03/28/2021 at 14:39 Approved by: Trina Ambrosio M.D. on 03/28/2021 at 14:40
== END ==
PROVIDERS: PCP Internal Medicine; Referring Provider Internal Medicine; Visit Provider Internal Medicine
DX: M85.852 Other specified disorders of bone density and structure, left thigh (principal); R82.991 Hypocitraturia; Z78.0 Asymptomatic menopausal state; Z96.641 Presence of right artificial hip joint; Z87.891 Personal history of nicotine dependence; Z82.62 Family history of osteoporosis
CPT/HCPCS: 74018; 77080; 77081

== ENCOUNTER → 2021-05-05 09:49 | Outpatient (CLI) | payer MEDICARE, OTHER, SELFPAY ==
[2021-01-26 17:03] VITALS: BMI 22.5
[2021-05-05 11:01] LABS: Aspartate Aminotransferase 34 IU/L (14-36); BUN Creatinine Ratio 29.5 (6-22); Blood Urea Nitrogen 18 mg/dL (7-17); Calcium 9.7 mg/dL (8.4-10.2); Carbon Dioxide 33 mmol/L (22-32); Chloride 93 mmol/L (98-107); Cholesterol 171 mg/dL (140-199); Estimated Glomerular Filt Rate > 60.0 mL/min (>60); Glucose 104 mg/dL (80-110); HDL Cholesterol 73 mg/dL (40-60); HEMOLYSIS < 15 (0-50); LDL Cholesterol Calculated 82 mg/dL (<100); Potassium 3.7 mmol/L (3.4-5.1); Sodium 134 mmol/L (137-145); Triglycerides 79 mg/dL (35-150)
== END ==
PROVIDERS: PCP Internal Medicine; Referring Provider Internal Medicine; Visit Provider Internal Medicine
DX: I10 Essential (primary) hypertension (principal); E78.2 Mixed hyperlipidemia
CPT/HCPCS: 36415; 80048; 80061; 84450

== ENCOUNTER → 2021-06-06 13:10 | Outpatient (CLI) | payer MEDICARE, OTHER, SELFPAY ==
[2021-01-26 17:03] VITALS: BMI 22.5
[2021-06-07 15:56] LABS: Alanine Aminotransferase 16 IU/L (<35); Albumin 4.5 g/dL (3.5-5.0); Albumin Globulin Ratio 1.3 (1.0-2.8); Alkaline Phosphatase 71 U/L (38-126); Aspartate Aminotransferase 31 IU/L (14-36); Bilirubin Total 0.4 mg/dL (0.2-1.3); Blood Urea Nitrogen 18 mg/dL (7-17); Calcium 9.7 mg/dL (8.4-10.2); Carbon Dioxide 32 mmol/L (22-32); Chloride 94 mmol/L (98-107); Estimated Glomerular Filt Rate > 60.0 mL/min (>60); Globulin 3.5 g/dL (1.7-4.1); Glucose 112 mg/dL (80-110); HEMOLYSIS < 15 (0-50); Potassium 4.2 mmol/L (3.4-5.1); Sodium 132 mmol/L (137-145)
== END ==
PROVIDERS: PCP Internal Medicine; Referring Provider Internal Medicine; Visit Provider Internal Medicine
DX: M85.80 Other specified disorders of bone density and structure, unspecified site (principal)
CPT/HCPCS: 36415; 80053

== ENCOUNTER → 2021-06-21 15:35 | Outpatient (CLI) | payer MEDICARE, OTHER, SELFPAY ==
[2021-01-26 17:03] VITALS: BMI 22.5
[2021-06-21 16:21] LABS: COVID19 -Nasal RAPID Negative (Negative)
== END ==
PROVIDERS: PCP Internal Medicine; Referring Provider Student in an Organized Health Care Education/Training Program; Visit Provider Student in an Organized Health Care Education/Training Program
DX: Z20.822 Contact with and (suspected) exposure to COVID-19 (principal)
CPT/HCPCS: 87635

== ENCOUNTER → 2021-07-09 09:25 | Outpatient (CLI) | payer MEDICARE, OTHER, SELFPAY ==
[2021-01-26 17:03] VITALS: BMI 22.5
[2021-07-13 13:46] LABS: Levetiracetam Keppra 10.4 ug/mL (10.0-40.0)
== END ==
PROVIDERS: PCP Internal Medicine; Referring Provider Psychiatry & Neurology Neurology; Visit Provider Psychiatry & Neurology Neurology
DX: R56.9 Unspecified convulsions (principal)
CPT/HCPCS: 36415; 80177

== ENCOUNTER → 2021-08-03 17:33 | Outpatient (CLI) | payer MEDICARE, OTHER, SELFPAY ==
[2021-01-26 17:03] VITALS: BMI 22.5
[2021-08-03 18:16] LABS: Add Manual Diff / Slide Review NO; Basophils Absolute Auto 100 /uL (0-100); Basophils Percent Auto 1.3 % (0-2); Eosinophils Absolute Auto 500 /uL (0-450); Hematocrit 36.6 % (36-46); Hemoglobin 12.4 g/dL (12.0-16.0); Lymphocytes Absolute Auto 1600 /uL (1100-4500); Lymphocytes Percent Auto 27.3 % (25-40); Mean Corpuscular HGB Conc 33.8 % (30-36); Mean Corpuscular Hemoglobin 33.8 PG (26-34); Monocytes Absolute Auto 600 /uL (0-900); Monocytes Percent Auto 10.4 % (3-14); Neutrophils Absolute Auto 3100 /uL (1500-7000); Platelet Count 266 X10^3/uL (150-400); Red Blood Cell Count 3.65 X10^6/uL (4.0-5.2); Red Cell Distribution Width 12.6 % (11.6-14.8); White Blood Cell Count 5.9 X10^3/uL (4.5-11.0)
[2021-08-03 19:21] LABS: Alanine Aminotransferase 20 IU/L (<35); Albumin Globulin Ratio 1.3 (1.0-2.8); Alkaline Phosphatase 77 U/L (38-126); Aspartate Aminotransferase 39 IU/L (14-36); BUN Creatinine Ratio 32.3 (6-22); Bilirubin Total 0.6 mg/dL (0.2-1.3); Blood Urea Nitrogen 20 mg/dL (7-17); Calcium 9.7 mg/dL (8.4-10.2); Carbon Dioxide 36 mmol/L (22-32); Chloride 90 mmol/L (98-107); Cholesterol 189 mg/dL (140-199); Estimated Glomerular Filt Rate > 60.0 mL/min (>60); Globulin 3.9 g/dL (1.7-4.1); Glucose 99 mg/dL (80-110); HDL Cholesterol 91 mg/dL (40-60); HEMOLYSIS < 15 (0-50); LDL Cholesterol Calculated 83 mg/dL (<100); Potassium 3.6 mmol/L (3.4-5.1); Sodium 132 mmol/L (137-145); Total Protein 8.9 g/dL (6.3-8.2); Triglycerides 75 mg/dL (35-150)
[2021-08-09 07:36] LABS: Levetiracetam Keppra 12.9 ug/mL (10.0-40.0)
== END ==
PROVIDERS: PCP Internal Medicine; Referring Provider Psychiatry & Neurology Neurology; Visit Provider Psychiatry & Neurology Neurology
DX: G45.9 Transient cerebral ischemic attack, unspecified (principal); Z51.81 Encounter for therapeutic drug level monitoring; R56.9 Unspecified convulsions
CPT/HCPCS: 36415; 80053; 80061; 80177; 85025

== ENCOUNTER → 2021-10-31 10:40 | Outpatient (CLI) | payer MEDICARE, OTHER, SELFPAY ==
[2021-08-26 10:07] VITALS: BMI 22.5
[2021-10-31 12:28] LABS: BUN Creatinine Ratio 22.8 (6-22); Blood Urea Nitrogen 13 mg/dL (7-17); Calcium 9.3 mg/dL (8.4-10.2); Carbon Dioxide 34 mmol/L (22-32); Chloride 91 mmol/L (98-107); Estimated Glomerular Filt Rate > 60 mL/min (>60); Glucose 102 mg/dL (80-110); HEMOLYSIS < 15 (0-50); Potassium 4.1 mmol/L (3.4-5.1); Sodium 132 mmol/L (137-145)
== END ==
PROVIDERS: PCP Internal Medicine; Referring Provider Internal Medicine; Visit Provider Internal Medicine
DX: I10 Essential (primary) hypertension (principal)
CPT/HCPCS: 36415; 80048

== ENCOUNTER → 2021-12-07 17:36 | Outpatient (CLI) | payer MEDICARE, OTHER, SELFPAY ==
[2021-08-26 10:07] VITALS: BMI 22.5
[2021-12-12 12:56] LABS: Levetiracetam Keppra 19.8 ug/mL (10.0-40.0)
== END ==
PROVIDERS: PCP Internal Medicine; Referring Provider Psychiatry & Neurology Neurology; Visit Provider Psychiatry & Neurology Neurology
DX: R56.9 Unspecified convulsions (principal)
CPT/HCPCS: 36415; 80177

== ENCOUNTER → 2022-03-01 17:47 | Outpatient (CLI) | payer MEDICARE, OTHER, SELFPAY ==
[2021-08-26 10:07] VITALS: BMI 22.5
[2022-03-06 15:36] LABS: Levetiracetam Keppra 21.6 ug/mL (10.0-40.0)
== END ==
PROVIDERS: PCP Internal Medicine; Referring Provider Psychiatry & Neurology Neurology; Visit Provider Psychiatry & Neurology Neurology
DX: R56.9 Unspecified convulsions (principal)
CPT/HCPCS: 36415; 80177

== ENCOUNTER → 2022-04-21 15:44 | Outpatient (CLI) | payer MEDICARE, OTHER, SELFPAY ==
[2021-08-26 10:07] VITALS: BMI 22.5
== END ==
PROVIDERS: PCP Internal Medicine; Visit Provider Physician Assistant
DX: R30.0 Dysuria (principal)
CPT/HCPCS: 87086

== ENCOUNTER → 2022-05-23 17:45 | Outpatient (CLI) | payer MEDICARE, OTHER, SELFPAY ==
[2021-08-26 10:07] VITALS: BMI 22.5
[2022-05-23 18:18] LABS: Hematocrit 37.7 % (36-46); Mean Corpuscular HGB Conc 34.3 % (30-36); Mean Corpuscular Hemoglobin 33.1 PG (26-34); Mean Corpuscular Volume 96.3 fL (80-100); Platelet Count 232 X10^3/uL (150-400); Red Blood Cell Count 3.92 X10^6/uL (4.0-5.2); Red Cell Distribution Width 14.2 % (11.6-14.8); White Blood Cell Count 6.5 X10^3/uL (4.5-11.0)
[2022-05-23 18:27] LABS: Alanine Aminotransferase 32 IU/L (<35); Albumin 4.5 g/dL (3.5-5.0); Albumin Globulin Ratio 1.1 (1.0-2.8); Alkaline Phosphatase 82 U/L (38-126); Aspartate Aminotransferase 39 IU/L (14-36); Bilirubin Total 0.4 mg/dL (0.2-1.3); Blood Urea Nitrogen 15 mg/dL (7-17); Calcium 8.9 mg/dL (8.4-10.2); Carbon Dioxide 34 mmol/L (22-32); Chloride 83 mmol/L (98-107); Cholesterol 140 mg/dL (140-199); Estimated Glomerular Filt Rate > 60 mL/min (>60); Glucose 129 mg/dL (80-110); HDL Cholesterol 60 mg/dL (40-60); HEMOLYSIS < 15 (0-50); LDL Cholesterol Calculated 71 mg/dL (<100); Potassium 3.5 mmol/L (3.4-5.1); Sodium 126 mmol/L (137-145); Total Protein 8.5 g/dL (6.3-8.2); Triglycerides 46 mg/dL (35-150)
[2022-05-26 17:11] LABS: Levetiracetam Keppra 25.1 ug/mL (10.0-40.0)
== END ==
PROVIDERS: PCP Internal Medicine; Referring Provider Internal Medicine; Visit Provider Internal Medicine
DX: E78.2 Mixed hyperlipidemia (principal); G40.909 Epilepsy, unspecified, not intractable, without status epilepticus; I10 Essential (primary) hypertension
CPT/HCPCS: 36415; 80053; 80061; 80177; 85027

== ENCOUNTER → 2022-06-07 17:38 | Outpatient (CLI) | payer MEDICARE, OTHER, SELFPAY ==
[2021-08-26 10:07] VITALS: BMI 22.5
[2022-06-07 18:21] LABS: BUN Creatinine Ratio 23.5 (6-22); Blood Urea Nitrogen 12 mg/dL (7-17); Calcium 8.8 mg/dL (8.4-10.2); Carbon Dioxide 32 mmol/L (22-32); Chloride 85 mmol/L (98-107); Estimated Glomerular Filt Rate > 60 mL/min (>60); Glucose 149 mg/dL (80-110); HEMOLYSIS < 15 (0-50); Potassium 4.1 mmol/L (3.4-5.1); Sodium 127 mmol/L (137-145)
== END ==
PROVIDERS: PCP Internal Medicine; Referring Provider Internal Medicine; Visit Provider Internal Medicine
DX: E87.1 Hypo-osmolality and hyponatremia (principal)
CPT/HCPCS: 36415; 80048

== ENCOUNTER → 2022-06-20 12:16 | Outpatient (CLI) | payer MEDICARE, OTHER, SELFPAY ==
[2021-08-26 10:07] VITALS: BMI 22.5
[2022-06-20 14:03] LABS: BUN Creatinine Ratio 31.1 (6-22); Blood Urea Nitrogen 14 mg/dL (7-17); Calcium 9.3 mg/dL (8.4-10.2); Carbon Dioxide 31 mmol/L (22-32); Chloride 87 mmol/L (98-107); Estimated Glomerular Filt Rate > 60 mL/min (>60); Glucose 107 mg/dL (80-110); HEMOLYSIS < 15 (0-50); Potassium 4.6 mmol/L (3.4-5.1); Sodium 129 mmol/L (137-145)
== END ==
PROVIDERS: PCP Internal Medicine; Referring Provider Internal Medicine; Visit Provider Internal Medicine
DX: E87.1 Hypo-osmolality and hyponatremia (principal)
CPT/HCPCS: 36415; 80048

== ENCOUNTER → 2022-06-21 09:08 | Outpatient (CLI) | payer MEDICARE, OTHER, SELFPAY ==
[2021-08-26 10:07] VITALS: BMI 22.5
--- NOTE | 2022-06-21 09:09 | DI.RAD.S_ITS ---
PROCEDURE: XR CHEST 2V INDICATIONS: cough TECHNIQUE: 2 views of the chest were acquired. COMPARISON: [facility], CR, XR CHEST 1 VIEW, 03/14/2021, 15:20. [facility], CR, CHEST 2 VIEW, 04/28/2009, 10:35. FINDINGS: Surgical changes and devices: Surgical changes in the right axilla. Lungs and pleura: New patchy airspace opacities in the left upper lobe and thickening of the medial left mediastinal soft tissue. Bronchial wall thickening and interstitial thickening in the right upper lobe. No pleural effusion or pneumothorax. Mediastinum: Mediastinal contours are normal. Heart size is normal. Bones and chest wall: No suspicious bony abnormalities. Deformity of prior healed left humeral neck fracture. Soft tissues appear unremarkable. IMPRESSION: 1. Interval development of focal airspace opacities in the left upper lobe, potentially infectious, inflammatory, or neoplastic. 2. Right upper lobe bronchial wall and interstitial thickening may reflect acute bronchitis. 3. Recommend short interval follow-up x-ray or chest CT following treatment to exclude possibility of neoplasm. Dictated by: Radha Maynard M.D. on 06/21/2022 at 13:41 Approved by: Radha Maynard M.D. on 06/21/2022 at 13:45
== END ==
PROVIDERS: PCP Internal Medicine; Referring Provider Internal Medicine; Visit Provider Internal Medicine
DX: Z86.16 Personal history of COVID-19 (principal); R05.9 Cough, unspecified
CPT/HCPCS: 71046

== ENCOUNTER → 2022-07-06 12:39 | Outpatient (CLI) | payer MEDICARE, OTHER, SELFPAY ==
[2021-08-26 10:07] VITALS: BMI 22.5
[2022-07-06 14:47] LABS: BUN Creatinine Ratio 28.8 (6-22); Blood Urea Nitrogen 17 mg/dL (7-17); Calcium 8.9 mg/dL (8.4-10.2); Carbon Dioxide 32 mmol/L (22-32); Chloride 94 mmol/L (98-107); Estimated Glomerular Filt Rate > 60 mL/min (>60); Glucose 94 mg/dL (80-110); HEMOLYSIS < 15 (0-50); Potassium 4.1 mmol/L (3.4-5.1); Sodium 134 mmol/L (137-145)
== END ==
PROVIDERS: PCP Internal Medicine; Referring Provider Internal Medicine; Visit Provider Internal Medicine
DX: E87.1 Hypo-osmolality and hyponatremia (principal); I10 Essential (primary) hypertension
CPT/HCPCS: 36415; 80048

== ENCOUNTER → 2022-07-17 14:55 | Outpatient (CLI) | payer MEDICARE, OTHER, SELFPAY ==
[2021-08-26 10:07] VITALS: BMI 22.5
--- NOTE | 2022-07-17 14:57 | DI.RAD.S_ITS ---
PROCEDURE: XR KUB INDICATIONS: kidney stones TECHNIQUE: One view of the abdomen acquired. COMPARISON: [facility], CR, XR KUB, 03/28/2021, 10:17. [facility], CR, XR KUB, 09/14/2020, 16:19. FINDINGS: Surgical changes and devices: None. Bowel: Bowel gas pattern is normal. Soft tissues: Stable left-sided renal stones measuring 8 mm and 5 mm. Bones: No suspicious bony lesions. IMPRESSION: Stable left-sided nephrolithiasis. Dictated by: Ashu Graham M.D. on 07/17/2022 at 15:42 Approved by: Ashu Graham M.D. on 07/17/2022 at 15:43
== END ==
PROVIDERS: PCP Internal Medicine; Referring Provider Urology; Visit Provider Urology
DX: N20.0 Calculus of kidney (principal)
CPT/HCPCS: 74018

== ENCOUNTER → 2022-07-21 13:42 | Outpatient (CLI) | payer MEDICARE, OTHER, SELFPAY ==
[2021-08-26 10:07] VITALS: BMI 22.5
--- NOTE | 2022-07-21 13:44 | DI.RAD.S_ITS ---
PROCEDURE: XR CHEST 2V INDICATIONS: followup pneumonia TECHNIQUE: 2 views of the chest were acquired. COMPARISON: [facility], CR, XR CHEST 2V, 06/21/2022, 9:12. FINDINGS: Surgical changes and devices: Surgical clips are noted in right axilla. Lungs and pleura: Lungs are clear. No pleural effusions or pneumothorax. Mediastinum: Mediastinal contours are normal. Heart size is enlarged. Bones and chest wall: No suspicious bony abnormalities. Soft tissues appear unremarkable. IMPRESSION: No acute cardiopulmonary pathology. Dictated by: Theo Ferreira M.D. on 07/21/2022 at 15:50 Approved by: Theo Ferreira M.D. on 07/21/2022 at 15:50
== END ==
PROVIDERS: PCP Internal Medicine; Referring Provider Internal Medicine; Visit Provider Internal Medicine
DX: J18.9 Pneumonia, unspecified organism (principal)
CPT/HCPCS: 71046

== ENCOUNTER → 2022-07-24 14:10 | Outpatient (CLI) | payer MEDICARE, OTHER, SELFPAY ==
[2021-08-26 10:07] VITALS: BMI 22.5
[2022-07-24 15:23] LABS: BUN Creatinine Ratio 27.1 (6-22); Blood Urea Nitrogen 16 mg/dL (7-17); Calcium 9.4 mg/dL (8.4-10.2); Carbon Dioxide 35 mmol/L (22-32); Chloride 91 mmol/L (98-107); Estimated Glomerular Filt Rate > 60 mL/min (>60); Glucose 93 mg/dL (80-110); HEMOLYSIS < 15 (0-50); Potassium 3.9 mmol/L (3.4-5.1); Sodium 137 mmol/L (137-145)
== END ==
PROVIDERS: PCP Internal Medicine; Referring Provider Internal Medicine; Visit Provider Internal Medicine
DX: E87.1 Hypo-osmolality and hyponatremia (principal); N20.0 Calculus of kidney; Z87.442 Personal history of urinary calculi
CPT/HCPCS: 36415; 80048; 81002; 99215

== ENCOUNTER → 2022-08-16 17:48 | Outpatient (CLI) | payer MEDICARE, OTHER, SELFPAY ==
[2021-08-26 10:07] VITALS: BMI 22.5
[2022-08-22 13:53] LABS: Levetiracetam Keppra 22.2 ug/mL (10.0-40.0)
== END ==
PROVIDERS: PCP Internal Medicine; Referring Provider Psychiatry & Neurology Neurology; Visit Provider Psychiatry & Neurology Neurology
DX: R56.9 Unspecified convulsions (principal)
CPT/HCPCS: 36415; 80177

== ENCOUNTER → 2022-10-09 17:53 | Outpatient (CLI) | payer MEDICARE, OTHER, SELFPAY ==
[2021-08-26 10:07] VITALS: BMI 22.5
[2022-10-09 18:20] LABS: BUN Creatinine Ratio 35.6 (6-22); Blood Urea Nitrogen 21 mg/dL (7-17); Calcium 9.1 mg/dL (8.4-10.2); Carbon Dioxide 31 mmol/L (22-32); Chloride 94 mmol/L (98-107); Estimated Glomerular Filt Rate > 60 mL/min (>60); Glucose 189 mg/dL (80-110); HEMOLYSIS < 15 (0-50); Sodium 132 mmol/L (137-145)
[2022-10-12 11:22] LABS: Levetiracetam Keppra 24.3 ug/mL (10.0-40.0)
== END ==
PROVIDERS: PCP Internal Medicine; Referring Provider Psychiatry & Neurology Neurology; Visit Provider Psychiatry & Neurology Neurology
DX: R56.9 Unspecified convulsions (principal); I10 Essential (primary) hypertension
CPT/HCPCS: 36415; 80048; 80177

== ENCOUNTER → 2022-11-15 15:55 | Outpatient (CLI) | payer MEDICARE, OTHER, SELFPAY ==
[2021-08-26 10:07] VITALS: BMI 22.5
[2022-11-15 17:31] LABS: Glucose 125 mg/dL (80-110)
[2022-11-16 05:16] LABS: Labcorp Hemoglobin (Hb) A1c 6.3 % (4.8-5.6)
== END ==
PROVIDERS: PCP Internal Medicine; Referring Provider Internal Medicine; Visit Provider Internal Medicine
DX: R73.01 Impaired fasting glucose (principal)
CPT/HCPCS: 36415; 82947; 83036

== ENCOUNTER → 2023-01-04 11:46 | Outpatient (CLI) | payer MEDICARE, OTHER, SELFPAY ==
[2021-08-26 10:07] VITALS: BMI 22.5
--- NOTE | 2023-01-04 11:49 | DI.RAD.S_ITS ---
PROCEDURE: XR LUMBAR SPINE 2-3V INDICATIONS: back pain TECHNIQUE: 3 views of the lumbar spine were acquired. COMPARISON: [facility], CR, XR KUB, 07/17/2022, 15:10. FINDINGS: Bones: 5 [id number] vertebrae are present. There is normal bony alignment. No vertebral body compression fractures. No suspicious bony lesions. Moderate L3-L4 degenerative disc disease. Mild L1-L2, L2-L3, L4-L5 and L5-S1 degenerative disc disease. Mild L1-L2, L2-L3, L3-L4 L4-L5 and L5-S1 facet arthropathy. Partially visualized right hip arthroplasty. Soft tissues: Gaseous distension and scattered air-fluid levels involving multiple loops of small bowel. No suspicious soft tissue calcifications. IMPRESSION: 1. Multilevel degenerative disc disease. 2. Multilevel facet arthropathy. 3. No fracture. No acute osseous lesion. If symptoms and/or clinical suspicion for pathology persists, evaluation with MRI should be considered for further assessment. 4. Gaseous distention and air-fluid levels involving multiple loops of small bowel which could represent ileus or early/partial small bowel obstruction. Please correlate with clinical findings. Dictated by: Diana Strickland MD, PhD on 01/04/2023 at 13:16 Approved by: Diana Strickland MD, PhD on 01/04/2023 at 13:18
[2023-01-13 16:23] LABS: 1,25-Dihydroxy, Vitamin D-2 <10 pg/mL (.)
== END ==
PROVIDERS: PCP Internal Medicine; Referring Provider Psychiatry & Neurology Neurology; Visit Provider Psychiatry & Neurology Neurology
DX: E55.9 Vitamin D deficiency, unspecified (principal)
CPT/HCPCS: 36415; 72100; 82652

== ENCOUNTER → 2023-01-22 13:42 | Outpatient (CLI) | payer MEDICARE, OTHER, SELFPAY ==
[2021-08-26 10:07] VITALS: BMI 22.5
--- NOTE | 2023-01-22 13:43 | DI.RAD.S_ITS ---
PROCEDURE: XR KUB INDICATIONS: kidney stones TECHNIQUE: One view of the abdomen acquired. COMPARISON: [facility], CR, XR KUB, 07/17/2022, 15:10. FINDINGS: Surgical changes and devices: There is right total hip arthroplasty. Bowel: Bowel gas pattern is nonobstructive. Significant fecal stasis in the colon is seen. Soft tissues: 8 x 4 mm calcification is seen projecting in the region of midpole left kidney. No gross right-sided renal calculi are seen. This is unchanged from previous study. Visualized solid organ contours appear normal in size. Bones: No suspicious bony lesions. IMPRESSION: Left renal calculi unchanged in size from prior study. No gross right-sided renal calculi. Constipation. No gross free air. Dictated by: Theo Ferreira M.D. on 01/22/2023 at 16:42 Approved by: Theo Ferreira M.D. on 01/22/2023 at 16:43
== END ==
PROVIDERS: PCP Internal Medicine; Referring Provider Urology; Visit Provider Urology
DX: N20.0 Calculus of kidney (principal); K59.00 Constipation, unspecified
CPT/HCPCS: 74018

== ENCOUNTER → 2023-02-02 16:50 | Outpatient (CLI) | payer MEDICARE, OTHER, SELFPAY ==
[2021-08-26 10:07] VITALS: BMI 22.5
--- NOTE | 2023-02-02 16:53 | DI.RAD.S_ITS ---
PROCEDURE: XR CERVICAL SPINE 4V OR 5V INDICATIONS: NECK PAIN TECHNIQUE: 5 views of the cervical spine were acquired. COMPARISON: None. FINDINGS: Bones: No fractures or dislocations to the T1 level. No suspicious bony lesions. There is normal range of motion between flexion and extension, with preserved normal bony alignment. C6-7 and C7-T1 disc spaces have disc space narrowing and endplate degenerative changes with osteophytes. There is facet arthrosis in the lower lumbar spine with anterolisthesis of C5-6. Soft tissues: Prevertebral soft tissues are normal in thickness. IMPRESSION: 1. 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 2. Degenerative disc disease at C6-7 and C7-T1. 3. No acute abnormality. Dictated by: Aleksandar Gómez M.D. on 02/02/2023 at 17:25 Approved by: Aleksandar Gómez M.D. on 02/02/2023 at 17:27
== END ==
PROVIDERS: PCP Internal Medicine; Referring Provider Physical Medicine & Rehabilitation; Visit Provider Physical Medicine & Rehabilitation
DX: M47.812 Spondylosis without myelopathy or radiculopathy, cervical region (principal); M50.323 Other cervical disc degeneration at C6-C7 level
CPT/HCPCS: 72050

== ENCOUNTER → 2023-03-13 18:01 | Outpatient (CLI) | payer MEDICARE, OTHER, SELFPAY ==
[2021-08-26 10:07] VITALS: BMI 22.5
[2023-03-16 14:25] LABS: Levetiracetam Keppra 21.8 ug/mL (10.0-40.0)
== END ==
PROVIDERS: PCP Internal Medicine; Referring Provider Psychiatry & Neurology Neurology; Visit Provider Psychiatry & Neurology Neurology
DX: R56.9 Unspecified convulsions (principal)
CPT/HCPCS: 36415; 80177

== ENCOUNTER → 2023-03-30 14:20 | Outpatient (CLI) | payer MEDICARE, OTHER, SELFPAY ==
[2021-08-26 10:07] VITALS: BMI 22.5
--- NOTE | 2023-03-30 14:26 | DI.RAD.S_ITS ---
Bone Density Report Name: GIULIANA AGUIAR Age: 83 Sex: Female Ethnicity: White Date of : 1940 Indication: osteopenia; Referring Provider: AMARJIT GALARZA Study: Bone densitometry was performed. Exam Date: March 30, 2023 Accession number: [id number] Bone Density: Region BMD T-score Z-score Classification AP Spine(L1, L2, L4) 0.872 -1.5 1.2 Osteopenia Femoral Neck (Left) 0.606 -2.2 0.2 Osteopenia Total Hip (Left) 0.750 -1.6 0.5 Osteopenia Total Forearm (Left) 0.526 -1.0 2.1 Normal 1/3 Forearm (Left) 0.615 -1.3 1.9 Osteopenia UD Forearm (Left) 0.378 -1.1 1.2 Osteopenia World Health Organization criteria for BMD impression classify patients as: Normal (T-score at or above -1.0), Osteopenia (T-score between -1.0 and -2.5), or Osteoporosis (T-score at or below -2.5). 10-year Fracture Risk(1): Major Osteoporotic Fracture 15% Hip Fracture 4.9% Reported Risk Factors: [place] (), Neck BMD=0.606, BMI=21.6 (1) FRAX(R) Version 3.08. Fracture probability calculated for an untreated patient. Fracture probability may be lower if the patient has received treatment. Previous Exams: -- Region Exam Age BMD T-score BMD Change BMD Change Date g/cm2 vs Baseline vs Previous -- AP Spine (L1-L2,L4) 03/30/2023 83 0.872 -1.5 0.022 (2.6%)# -0.022 (-2.4%)# 03/28/2021 81 0.894 -1.3 0.044 (5.1%)* -0.027 (-2.9%)* 02/12/2019 78 0.921 -1.0 0.071 (8.3%)* 0.039 (4.5%)* 02/06/2017 76 0.882 -1.4 0.031 (3.7%)* 0.022 (2.6%) 01/28/2015 74 0.859 -1.6 0.009 (1.0%) -0.006 (-0.7%) 02/10/2013 72 0.866 -1.5 0.015 (1.8%) -0.004 (-0.4%) 04/28/2011 71 0.869 -1.5 0.019 (2.2%) 0.002 (0.3%) 05/17/2010 70 0.867 -1.5 0.016 (1.9%) -0.001 (-0.2%) 04/28/2009 69 0.868 -1.5 0.018 (2.1%) 0.018 (2.1%) 05/12/2008 68 0.851 -1.7 Total Hip(Left) 03/30/2023 83 0.750 -1.6 -0.048 (-6.0%)# -0.018 (-2.4%)# 03/28/2021 81 0.768 -1.4 -0.029 (-3.7%)* -0.014 (-1.8%) 02/12/2019 78 0.782 -1.3 -0.015 (-1.9%) -0.001 (-0.1%) 02/06/2017 76 0.783 -1.3 -0.014 (-1.8%) 0.017 (2.3%) 01/28/2015 74 0.765 -1.4 -0.032 (-4.0%)* -0.022 (-2.7%) 02/10/2013 72 0.787 -1.3 -0.010 (-1.3%) 0.009 (1.2%) 04/28/2011 71 0.778 -1.3 -0.019 (-2.4%) -0.019 (-2.4%) 05/17/2010 70 0.797 -1.2 0.000 (0.0%) 0.013 (1.6%) 04/28/2009 69 0.785 -1.3 -0.013 (-1.6%) -0.013 (-1.6%) 05/12/2008 68 0.797 -1.2 -- *Denotes significance at 95% confidence level, LSC for AP Spine = 0.022 g/cm2, LSC for Total Hip = 0.027 g/cm2 Rate of change results reflect vertebral levels common to all scans # Denotes dissimilar scan types or analysis methods Impression: The patient has low bone mass, based on the Left Femoral Neck T-score. The patient has an estimated ten-year risk of hip fracture of 4.9% and an estimated ten-year risk of major fracture of 15%, based on the WHO FRAX algorithm. No significant bone loss was observed. Discussion: BONE DENSITY IS LOW AT ONE OR MORE SKELETAL SITES. THE PATIENT'S BMD AND CLINICAL RISK FACTORS CONTRIBUTE TO THIS PATIENT'S INCREASED RISK OF FRACTURE. This patient's lowest T-score is low at one or more skeletal sites. It meets the World Health Organization's (WHO) criteria for low bone mass (T-score between -1.0 and -2.5). The patient's 10-year risk of hip fracture as calculated by FRAX exceeds the threshold where pharmacological therapy is recommended by the National Osteoporosis Foundation (NOF). However, all treatment decisions require clinical judgment and consideration of individual patient factors, including patient preferences, comorbidities, previous drug use, risk factors not captured in the FRAX model (e.g., frailty, falls, vitamin D deficiency, increased bone turnover, interval significant decline in bone density) and possible under or overestimation of fracture risk by FRAX. The patient should follow a healthful lifestyle (good nutrition with adequate calcium and vitamin D, and appropriate weight-bearing exercise). Follow-Up: Consider a repeat BMD and Vertebral Fracture Assessment (VFA) exam in 2 years or sooner if medically necessary, to reassess this patient's status. Reported by: LORENZO LEON M.D. on 03/30/2023 4:42:00 PM.
== END ==
PROVIDERS: PCP Internal Medicine; Referring Provider Internal Medicine; Visit Provider Internal Medicine
DX: Z78.0 Asymptomatic menopausal state (principal); M85.852 Other specified disorders of bone density and structure, left thigh
CPT/HCPCS: 77080; 77081

== ENCOUNTER 2023-05-01 12:25 | Outpatient (CLI) | payer MEDICARE, OTHER, SELFPAY ==
[2023-04-05 14:34] VITALS: BMI 22.5
[2023-05-01] VITALS (8 sets, daily range): BP systolic 137–184; BP diastolic 70–83; PULSE 58–64; RESP 13–31; TEMP 36.1; O2SAT 94–99
--- NOTE | 2023-05-01 13:00 | DI.RAD.S_ITS ---
PROCEDURE: PAIN L/S FACET INJ/BLK 1ST FARNAZ INDICATIONS: SPONDYLOSIS COMPARISON: None. FINDINGS: Fluoroscopic spot filming was performed to verify placement of spinal needles at the bilateral L3, L4 and L5 level(s), as labeled on the films. Appropriate location(s) of the needle tip(s) was confirmed by injection of iodinated contrast. IMPRESSION: Intra procedural examination demonstrating appropriate positions of the needles. Dictated by: Rohan Craig M.D. on 05/01/2023 at 15:40 Approved by: Rohan Craig M.D. on 05/01/2023 at 15:41
[2023-05-01] MEDS: MIDAZOLAM 2 MG/2 ML VIAL IV (13:23)
[2023-05-01] MEDS: BUPIVACAINE 0.5% (PF) 10 ML VIAL 5 ML INJ (13:36)
[2023-05-01] MEDS: iopamidoL 15 ML VIAL 3 ML INJ (13:36)
[2023-05-01] MEDS: LIDOCAINE 1% 20 ML 5 ML INJ (13:36)
--- NOTE | 2023-05-01 13:48 | P.PCN_ITS ---
Date/Time/Diagnoses Date of procedure: 05/01/23 Time of procedure: 13:48 Pre-procedure diagnosis: FACET ARTHROPATHY Post-procedure diagnosis: same Procedure Notes Procedure: 1. BILATERAL L3, L4 AND L5 DIAGNOSTIC MB BLOCKS Indications: Brenda is referred by Dr. Clay for treatment of Bilateral Axial LBP. Physician: Ashish Feliz Total Fluoroscopy time (seconds): 12 Total sedation minutes: 20 Complications: none Procedure in detail & Post-procedure care: DESCRIPTION OF PROCEDURE Fluoroscopically guided, contrast-controlled bilateral L3, L4 AND L5 medial branch blocks with 0.5cc of 0.5% Marcaine. Following review of allergy and review of potential side effects and complications, including, but not necessarily limited to, infection, allergic reaction, local tissue breakdown, nerve injury, paralysis, stroke and possible , the patient indicated that the patient understood and agreed to proceed. An informed consent document was signed by the patient, witnessed by a nurse, and placed in the patient's chart. After review of previous anaesthesic history and IV conscious sedation the patient was deemed safe to proceed with today's procedure with IV conscious sedation as ASA class II designation. Safety time-out was performed to confirm patient ID, procedure to be performed and site of procedure. IV sedation was accomplished with a combination of 2mg of Versed was administered by the RN after DO order, titrated to patient comfort during the course of the procedure while the patient remained responsive to all verbal commands In the prone position, following sterile prep and drape of the lumbar region, the right L3, L4 AND L5 anatomical location of the medial branch of the dorsal ramus was identified fluoroscopically. Subsequently an anesthetic skin wheal using 1% lidocaine solution was initiated at each of the anatomical spots. Subsequently then a 22-gauge 3.5-inch spinal needle was atraumatically introduced and advanced under fluoroscopic guidance at each of the corresponding sites at the right L3, L4 and L5 MB. After negative aspiration, 0.2cc of Isovue 200 was injected, confirming placement without vascular or intrathecal uptake. Subsequently then 0.5cc of 0.5% Marcaine solution was injected at each of the corresponding sites at the right L3, L4 and L5 medial branch locations. The identical procedure was replicated on the left. The patient tolerated the proc edure well without signs or symptoms of complications. The patient tolerated the procedure well without signs or symptoms of complications prior to transfer to the recovery area continued monitoring without incident. Post-procedure, the patient was monitored initiating provocative activities to measure the amount of relief from block of the facetogenic pain. The patient reported a VAS of 7 prior to the procedure and a post-procedure VAS of 1. It has been a pleasure to assist in the diagnostic and therapeutic care of your patient. POST OP INSTRUCTIONS The patient was provided with a Pain Log to complete over the next several hours and subsequent days prior to the patient's follow up with the ordering physician. If the patient has learning support services director relief to the solution applied, then they may be a candidate for medial branch rhizotomy. The patient is aware, was provided, once again, with a Pain Log and will follow up with the referring physician for review and clinical correlation
== END 2023-05-01 14:05 | disposition home or self-care (01) ==
PROVIDERS: PCP Internal Medicine; Referring Provider Physical Medicine & Rehabilitation; Visit Provider Physical Medicine & Rehabilitation
DX: M47.816 Spondylosis without myelopathy or radiculopathy, lumbar region (principal)
CPT/HCPCS: 64493; 64494; 99152; J2250

== ENCOUNTER 2023-06-19 13:53 | Outpatient (CLI) | payer MEDICARE, OTHER, SELFPAY ==
[2023-04-05 14:34] VITALS: BMI 22.5
[2023-06-19] VITALS (8 sets, daily range): BP systolic 157–200; BP diastolic 58–85; PULSE 56–64; RESP 16–24; TEMP 36.6; O2SAT 95–99
--- NOTE | 2023-06-19 14:30 | DI.RAD.S_ITS ---
PROCEDURE: PAIN L/S FACET INJ/BLK 1ST FARNAZ INDICATIONS: FACET ARTHROPATHY COMPARISON: [facility], , PAIN L/S FACET INJ/BLK 1ST FARNAZ, 05/01/2023, 14:23. FINDINGS: Fluoroscopic spot filming was performed to verify placement of spinal needles at the right L3, L4, and L5 medial branch level(s), as labeled on the films. IMPRESSION: Fluoroscopic guidance provided for multilevel lumbar medial branch block. Dictated by: Matthew Bee M.D. on 06/19/2023 at 17:38 Approved by: Matthew Bee M.D. on 06/19/2023 at 17:49
[2023-06-19] MEDS: iopamidoL 15 ML VIAL 3 ML INJ (15:07)
[2023-06-19] MEDS: LIDOCAINE 1% 20 ML 5 ML INJ (15:07)
[2023-06-19] MEDS: LIDOCAINE 2% INJ SDV 5ML 10 ML INJ (15:09)
--- NOTE | 2023-06-19 15:23 | PM.PROC.IR.1 ---
Date/Time/Diagnoses Date of procedure: 06/19/23 Time of procedure: 15:23 Pre-procedure diagnosis: 1. FACET ARTHROPATHY Post-procedure diagnosis: same Procedure Notes Procedure: 1. BILATERAL L3, L4 AND L5 DIAGNOSTIC MB BLOCKS Indications: Brenda is referred by Dr. Clay for treatment of Bilateral Axial LBP. Physician: Ashish Feliz Total Fluoroscopy time (seconds): 12 Total sedation minutes: 19 Complications: none Procedure in detail & Post-procedure care: DESCRIPTION OF PROCEDURE Fluoroscopically guided, contrast-controlled bilateral L3, L4 AND L5 medial branch blocks with 0.5cc of 2% Lidocaine. Following review of allergy and review of potential side effects and complications, including, but not necessarily limited to, infection, allergic reaction, local tissue breakdown, nerve injury, paralysis, stroke and possible , the patient indicated that the patient understood and agreed to proceed. An informed consent document was signed by the patient, witnessed by a nurse, and placed in the patient's chart. After review of previous anaesthesic history and IV conscious sedation the patient was deemed safe to proceed with today's procedure with IV conscious sedation as ASA class II designation. Safety time-out was performed to confirm patient ID, procedure to be performed and site of procedure. IV sedation was accomplished with a combination of 2mg of Versed was administered by the RN after DO order, titrated to patient comfort during the course of the procedure while the patient remained responsive to all verbal commands In the prone position, following sterile prep and drape of the lumbar region, the right L3, L4 AND L5 anatomical location of the medial branch of the dorsal ramus was identified fluoroscopically. Subsequently an anesthetic skin wheal using 1% lidocaine solution was initiated at each of the anatomical spots. Subsequently then a 22-gauge 3.5-inch spinal needle was atraumatically introduced and advanced under fluoroscopic guidance at each of the corresponding sites at the right L3, L4 and L5 MB. After negative aspiration, 0.2cc of Isovue 200 was injected, confirming placement without vascular or intrathecal uptake. Subsequently then 0.5cc of 2% Lidocaine solution was injected at each of the corresponding sites at the right L3, L4 and L5 medial branch locations. The identical procedure was replicated on the left. The patient tolerated the procedure well without signs or symptoms of complications. The patient tolerated the procedure well without signs or symptoms of complications prior to transfer to the recovery area continued monitoring without incident. Post-procedure, the patient was monitored initiating provocative activities to measure the amount of relief from block of the facetogenic pain. The patient reported a VAS of 7 prior to the procedure and a post-procedure VAS of 1. It has been a pleasure to assist in the diagnostic and therapeutic care of your patient. POST OP INSTRUCTIONS The patient was provided with a Pain Log to complete over the next several hours and subsequent days prior to the patient's follow up with the ordering physician. If the patient has television announcer relief to the solution applied, then they may be a candidate for medial branch rhizotomy. The patient is aware, was provided, once again, with a Pain Log and will follow up with the referring physician for review and clinical correlation
== END 2023-06-19 15:34 | disposition home or self-care (01) ==
LOC: RAD 13:54
PROVIDERS: PCP Internal Medicine; Referring Provider Physical Medicine & Rehabilitation; Visit Provider Physical Medicine & Rehabilitation
DX: M47.816 Spondylosis without myelopathy or radiculopathy, lumbar region (principal)
CPT/HCPCS: 64493; 64494; 99152; J2250

== ENCOUNTER → 2023-07-21 07:51 | Outpatient (CLI) | payer MEDICARE, OTHER, SELFPAY ==
[2023-04-05 14:34] VITALS: BMI 22.5
[2023-07-21 08:46] LABS: Hemoglobin A1C% w Est Avg Glu 5.7 % (4.0-6.0)
[2023-07-21 08:49] LABS: BUN Creatinine Ratio 31.1 (6-22); Blood Urea Nitrogen 19 mg/dL (7-17); Calcium 9.4 mg/dL (8.4-10.2); Carbon Dioxide 32 mmol/L (22-32); Chloride 98 mmol/L (98-107); Cholesterol 234 mg/dL (140-199); Estimated Glomerular Filt Rate > 60 mL/min (>60); Glucose 98 mg/dL (80-110); HDL Cholesterol 81 mg/dL (40-60); HEMOLYSIS < 15 (0-50); LDL Cholesterol Calculated 141 mg/dL (<100); Potassium 4.2 mmol/L (3.4-5.1); Sodium 137 mmol/L (137-145); Triglycerides 58 mg/dL (35-150)
== END ==
PROVIDERS: PCP Internal Medicine; Referring Provider Internal Medicine; Visit Provider Internal Medicine
DX: R73.01 Impaired fasting glucose (principal); E78.1 Pure hyperglyceridemia; E78.2 Mixed hyperlipidemia; E87.1 Hypo-osmolality and hyponatremia; I10 Essential (primary) hypertension; I67.9 Cerebrovascular disease, unspecified
CPT/HCPCS: 36415; 80048; 80061; 83036

== ENCOUNTER → 2023-07-31 13:24 | Outpatient (CLI) | payer MEDICARE, OTHER, SELFPAY ==
[2023-07-26 14:02] VITALS: BMI 22.5
--- NOTE | 2023-07-31 13:31 | DI.RAD.S_ITS ---
PROCEDURE: XR KUB INDICATIONS: Kidney Stones TECHNIQUE: One view of the abdomen acquired. COMPARISON: [facility], CR, XR KUB, 01/22/2023, 13:59. FINDINGS: Surgical changes and devices: None. Bowel: Bowel gas pattern is normal. Soft tissues: A soft tissue calcification is projected over the right sacral ala suggesting a ureteral calculus. A soft tissue calcification is projected over the left renal fossa suggesting left renal stone. Bones: No suspicious bony lesions. IMPRESSION: Findings suspicious for a right ureteral calculus and a left renal calculus. Dictated by: Betty Rashid M.D. on 07/31/2023 at 16:33 Approved by: Betty Rashid M.D. on 07/31/2023 at 16:47
== END ==
PROVIDERS: PCP Internal Medicine; Referring Provider Urology; Visit Provider Urology
DX: N20.0 Calculus of kidney (principal)
CPT/HCPCS: 74018

== ENCOUNTER → 2023-08-03 09:52 | Outpatient (CLI) | payer MEDICARE, OTHER, SELFPAY ==
[2023-07-26 14:02] VITALS: BMI 22.5
--- NOTE | 2023-08-03 09:53 | DI.CT.S_ITS ---
PROCEDURE: CT KIDNEY URETER BLADDER (KUB) INDICATIONS: Calculus of kidney TECHNIQUE: Axial sections were acquired from the lung bases to the pubic symphysis. Coronal and sagittal reformats were performed. For radiation dose reduction, the following was used: automated exposure control, adjustment of mA and/or kV according to patient size. COMPARISON: [facility], CT, CT ABDOMEN PELVIS W CON, 05/21/2020, 16:14. FINDINGS: Image quality: Diagnostic. Lower Chest: No significant findings. URINARY: Right Kidney: Multiple nonobstructing calculi are present within the right kidney, the largest of which is in the lower pole, measures 6 mm in diameter and approximately 976 Hounsfield units in density. No hydronephrosis. Right Ureter: No hydroureter or ureterolithiasis. Left Kidney: A nonobstructing 8 mm calculus is present in the upper pole of the left kidney which measures approximately 972 Hounsfield units in density. No hydronephrosis. Left Ureter: No hydroureter or ureterolithiasis. Bladder: Normal wall thickness. No stones. ABDOMEN: Liver: No contour-deforming solid mass. Gallbladder: No radiopaque gallstones or wall thickening. Biliary ducts: No biliary dilation. Pancreas: No ductal dilation. Spleen: A low-density cyst is redemonstrated within the upper pole of the spleen unchanged from the study dated May 21, 2020. Adrenal Glands: No adrenal nodules. Stomach and Bowel: Normal colonic caliber, without significant wall thickening. The appendix is not visualized; however surgical clips are present in the region of the cecum in the lower quadrant suggesting prior appendectomy. Peritoneum: No abnormal intraperitoneal fluid. No free air. Ventral Wall: No hernia. Abdominal Nodes: No enlarged retroperitoneal or mesenteric lymph nodes. Vessels: Aorta and inferior vena cava are normal in size. PELVIS: Pelvic Organs: Unremarkable. Pelvic Nodes: Unremarkable. Miscellaneous: There is a small fat containing left inguinal hernia. Bones: Unremarkable. IMPRESSION: 1. Bilateral nonobstructing nephrolithiasis as above. No hydronephrosis, hydroureter, ureterolithiasis or bladder calculi. Dictated by: Betty Rashid M.D. on 08/03/2023 at 11:09 Approved by: Betty Rashid M.D. on 08/03/2023 at 11:31
== END ==
PROVIDERS: PCP Internal Medicine; Referring Provider Urology; Visit Provider Urology
DX: N20.0 Calculus of kidney (principal); K40.90 Unilateral inguinal hernia, without obstruction or gangrene, not specified as recurrent; Z87.442 Personal history of urinary calculi
CPT/HCPCS: 74176; 81002; 99213

== ENCOUNTER 2023-09-06 07:35 | Outpatient (CLI) | payer MEDICARE, OTHER, SELFPAY ==
[2023-07-26 14:02] VITALS: BMI 22.5
[2023-09-06] VITALS (13 sets, daily range): BP systolic 151–191; BP diastolic 62–85; PULSE 53–58; RESP 12–20; TEMP 36; O2SAT 95–100
--- NOTE | 2023-09-06 08:00 | DI.RAD.S_ITS ---
PROCEDURE: PAIN L/S MED/LAT N RFA BILAT INDICATIONS: Lumbar Facet Arthopathy COMPARISON: [facility], CT, CT KIDNEY URETER BLADDER (KUB), 08/03/2023, 10:07. FINDINGS: Fluoroscopic spot filming was performed to verify placement of spinal needles at the bilateral L3, L4, and L5 level(s), as labeled on the films. Appropriate location(s) of the needle tip(s) was confirmed by injection of iodinated contrast. IMPRESSION: Intraoperative guidance provided. Dictated by: Steve Vigil M.D. on 09/06/2023 at 11:19 Approved by: Steve Vigil M.D. on 09/06/2023 at 11:21
[2023-09-06] MEDS: MIDAZOLAM 2 MG/2 ML VIAL 1 MG IV ×2 (08:12→08:30)
[2023-09-06] MEDS: fentaNYL 100 MCG/2 ML INJ 25 MCG IV ×2 (08:12→08:30)
[2023-09-06] MEDS: BUPIVACAINE 0.5% (PF) 10 ML VIAL 5 ML INJ (08:18)
[2023-09-06] MEDS: LIDOCAINE 1% 20 ML 5 ML INJ (08:18)
--- NOTE | 2023-09-06 09:03 | P.PCN_ITS ---
Date/Time/Diagnoses Date of procedure: 09/06/23 Time of procedure: 09:03 Pre-procedure diagnosis: 1. RECALCITRANT FACET ARTHROPATHY Post-procedure diagnosis: same Procedure Notes Procedure: 1. BILATERAL L3, L4 AND L5 MEDIAL BRANCH RADIOFREQUENCY NEUROTOMY Indications: Brenda is referred by Dr. Clay for treatment of facet arthropathy. Physician: Ashish Feliz Total Fluoroscopy time (seconds): 43 Total sedation minutes: 24 Complications: none Procedure in detail & Post-procedure care: DESCRIPTION OF PROCEDURE Bilateral L3, L4 and L5 medial branch radiofrequency neurotomy The patient is well known to this clinic having undergone previous facet injections with good but temporary relief. The patient has experienced appropriate, concordant relief with previous facet and median branch blocks but the patient's pain has been recalcitrant to further conservative measures. Therefore, based upon the patient's relief and persistent symptoms, the patient is considered an appropriate candidate for facet rhizotomy. All of the patient's questions regarding the risks versus benefits of the procedure, including, but not limited to, bleeding, infection, temporary as well as lasting nerve injury, paralysis, stroke, and , as well treatment alternatives were answered to satisfaction. After obtaining informed consent, denial of pertinent drug allergies, as well as being made aware of the potential risks of bleeding, infection, spinal cord trauma, paralysis, temporary and permanent nerve damage, seizure, stroke, and possible , the patient was brought to the fluoroscopy suite and positioned prone on the fluoroscopy table. After review of previous anaesthesic history and IV conscious sedation the patient was deemed safe to proceed with today's procedure with IV conscious sedation as ASA class II designation. Safety time-out was performed to confirm patient ID, procedure to be performed and site of procedure. IV sedation was accomplished with a combination of 2mg of Versed and 50mcg of Fentanyl administered by the RN after DO order, titrated to patient comfort during the course of the procedure while the patient remained responsive to all verbal commands. The lumbar region was prepped in usual sterile fashion and covered with a fenestrated drape in the usual sterile fashion. Appropriate monitors applied including pulse oximeter, pulse, and blood pressure for regular monitoring throughout the procedure. After local infiltration using 1% lidocaine, under fluoroscopic guidance, a 10- cm RF insulated needle with a 10-mm active tip was positioned parallel to the junction of the right the superior articulating process where the L5 medial branch resides. Needle placement was confirmed with motor stimulation of .5v on the right which produced local stimulation without radicular component. The stimulation was then increased to 2v with, once again, only local multifidus stimulation without radicular component. The needle was then removed and the identical procedure was performed along the length of the right L4 medial branch with motor stimulation at .7v on the right. The identical procedure was once again performed along the length of the right L3 and medial branch with motor stimulation of .5v on the right. The medial branches were then anesthetised with 0.5% marcaine. This was then followed by two discreet lesions performed at 80 degrees Celsius for 90 seconds each. The identical procedures were repeated on the left. The patient tolerated the procedure well without signs or symptoms of complications prior to transfer to the recovery area continued monitoring without incident. The patient was then transferred to the recovery area where they were observed for an appropriate period of time after the injection. The patient reported a VAS score of 9 prior to the procedure and a post-procedure VAS of 0. POST OP INSTRUCTIONS The patient was provided a Pain Log to continue to record the patient's response to the target-specific procedure prior to the patient's follow-up visit with the referring physician. Additionally, specific post-injection care instructions and a contact number to our office were provided if concerns arise regarding possible complications associated with the procedure are suspected.
== END 2023-09-06 09:20 | disposition home or self-care (01) ==
LOC: RAD 07:36
PROVIDERS: PCP Internal Medicine; Referring Provider Physical Medicine & Rehabilitation; Visit Provider Physical Medicine & Rehabilitation
DX: M47.816 Spondylosis without myelopathy or radiculopathy, lumbar region (principal)
CPT/HCPCS: 64494; 64635; 64636; 99152; 99153; J2250; J3010

== ENCOUNTER → 2023-10-09 17:50 | Outpatient (CLI) | payer MEDICARE, OTHER, SELFPAY ==
[2023-07-26 14:02] VITALS: BMI 22.5
== END ==
PROVIDERS: PCP Internal Medicine; Referring Provider Psychiatry & Neurology Neurology; Visit Provider Psychiatry & Neurology Neurology
DX: G40.209 Localization-related (focal) (partial) symptomatic epilepsy and epileptic syndromes with complex partial seizures, not intractable, without status epilepticus (principal)
CPT/HCPCS: 36415; 80177

== ENCOUNTER → 2023-12-25 12:17 | Outpatient (CLI) | payer MEDICARE, OTHER, SELFPAY ==
[2023-07-26 14:02] VITALS: BMI 22.5
[2023-12-25 12:58] LABS: Hematocrit 37.1 % (36-46); Hemoglobin 12.6 g/dL (12.0-16.0); Mean Corpuscular HGB Conc 33.9 % (30-36); Mean Corpuscular Hemoglobin 34.3 PG (26-34); Mean Corpuscular Volume 101.4 fL (80-100); Platelet Count 226 X10^3/uL (150-400); Red Blood Cell Count 3.66 X10^6/uL (4.0-5.2); Red Cell Distribution Width 13.3 % (11.6-14.8); White Blood Cell Count 6.6 X10^3/uL (4.5-11.0)
[2023-12-25 13:42] LABS: Alanine Aminotransferase 12 IU/L (<35); Albumin 4.3 g/dL (3.5-5.0); Albumin Globulin Ratio 1.3 (1.0-2.8); Alkaline Phosphatase 86 U/L (38-126); Aspartate Aminotransferase 28 IU/L (14-36); BUN Creatinine Ratio 35.9 (6-22); Bilirubin Total 0.4 mg/dL (0.2-1.3); Blood Urea Nitrogen 23 mg/dL (7-17); Calcium 8.9 mg/dL (8.4-10.2); Carbon Dioxide 31 mmol/L (22-32); Chloride 97 mmol/L (98-107); Estimated Glomerular Filt Rate > 60 mL/min (>60); Globulin 3.2 g/dL (1.7-4.1); Glucose 94 mg/dL (80-110); HEMOLYSIS < 15 (0-50); Potassium 4.3 mmol/L (3.4-5.1); Sodium 135 mmol/L (137-145); Total Protein 7.5 g/dL (6.3-8.2)
[2023-12-25 14:10] LABS: TSH w/ Reflex to FT4 1.72 uIU/mL (0.47-4.68)
== END ==
LOC: LAB 12:18
PROVIDERS: Family Provider Internal Medicine; PCP Internal Medicine; Referring Provider Internal Medicine; Visit Provider Internal Medicine
DX: G47.9 Sleep disorder, unspecified (principal); I10 Essential (primary) hypertension; I67.9 Cerebrovascular disease, unspecified
CPT/HCPCS: 36415; 80053; 84443; 85027

== ENCOUNTER → 2024-01-29 14:31 | Outpatient (CLI) | payer MEDICARE, OTHER, SELFPAY ==
[2023-07-26 14:02] VITALS: BMI 22.5
--- NOTE | 2024-01-29 14:37 | DI.RAD.S_ITS ---
PROCEDURE: XR KUB INDICATIONS: nephrolithiasis TECHNIQUE: One view of the abdomen acquired. COMPARISON: [facility], CR, XR KUB, 07/31/2023, 13:31. [facility], CR, XR KUB, 01/22/2023, 13:59. FINDINGS: Surgical changes and devices: Right hip arthroplasty. Bowel: Bowel gas pattern is normal. Soft tissues: Calcification measuring 7 mm projecting over the left mid abdomen. Calcifications projecting over the right mid abdomen measuring up to 6 mm, unclear if these are renal in origin. Visualized solid organ contours appear normal in size. Bones: No suspicious bony lesions. IMPRESSION: Calcifications projecting over the abdomen measuring up to 7 mm, possibly representing renal calcifications. If indicated, CT KUB can be obtained for further evaluation. Dictated by: Rohan Craig M.D. on 01/29/2024 at 17:05 Approved by: Rohan Craig M.D. on 01/29/2024 at 17:08
== END ==
PROVIDERS: Family Provider Internal Medicine; PCP Internal Medicine; Referring Provider Urology; Visit Provider Urology
DX: N20.0 Calculus of kidney (principal); Z96.641 Presence of right artificial hip joint
CPT/HCPCS: 74018

== ENCOUNTER → 2024-03-05 17:44 | Outpatient (CLI) | payer MEDICARE, OTHER, SELFPAY ==
[2023-07-26 14:02] VITALS: BMI 22.5
[2024-03-10 14:09] LABS: Levetiracetam Keppra 24.1 ug/mL (10.0-40.0)
== END ==
PROVIDERS: Family Provider Internal Medicine; PCP Internal Medicine; Referring Provider Psychiatry & Neurology Neurology; Visit Provider Psychiatry & Neurology Neurology
DX: R56.9 Unspecified convulsions (principal)
CPT/HCPCS: 36415; 80177

== ENCOUNTER → 2024-03-13 11:57 | Outpatient (CLI) | payer MEDICARE, OTHER, SELFPAY ==
[2023-07-26 14:02] VITALS: BMI 22.5
--- NOTE | 2024-03-13 11:59 | DI.RAD.S_ITS ---
PROCEDURE: XR CHEST 2V INDICATIONS: coughing TECHNIQUE: 2 views of the chest were acquired. COMPARISON: [facility], CR, XR CHEST 2V, 07/21/2022, 14:49. [facility], CR, XR CHEST 2V, 06/21/2022, 9:12. FINDINGS: Surgical changes and devices: Right chest wall surgical clips. Lungs and pleura: Lungs are clear. No pleural effusions or pneumothorax. Mediastinum: Mediastinal contours are normal. Heart size is normal. Bones and chest wall: No suspicious bony abnormalities. Soft tissues appear unremarkable. IMPRESSION: No acute cardiopulmonary abnormality is seen. Dictated by: Rohan Craig M.D. on 03/13/2024 at 16:33 Approved by: Rohan Craig M.D. on 03/13/2024 at 16:33
== END ==
PROVIDERS: Family Provider Internal Medicine; PCP Internal Medicine; Referring Provider Nurse Practitioner Family; Visit Provider Nurse Practitioner Family
DX: R05.9 Cough, unspecified (principal)
CPT/HCPCS: 71046

== ENCOUNTER → 2024-06-24 08:49 | Outpatient (CLI) | payer MEDICARE, OTHER, SELFPAY ==
[2023-07-26 14:02] VITALS: BMI 22.5
[2024-06-24 12:04] LABS: Folate 8.2 ng/mL (2.76-20.0); Vitamin B12 > 1000 pg/mL (239-931)
[2024-07-11 22:35] LABS: 1,25-Dihydroxy, Vitamin D-2 <10 pg/mL (.)
== END ==
PROVIDERS: Family Provider Internal Medicine; PCP Internal Medicine; Referring Provider Psychiatry & Neurology Neurology; Visit Provider Psychiatry & Neurology Neurology
DX: E55.9 Vitamin D deficiency, unspecified (principal); G40.109 Localization-related (focal) (partial) symptomatic epilepsy and epileptic syndromes with simple partial seizures, not intractable, without status epilepticus; E53.8 Deficiency of other specified B group vitamins
CPT/HCPCS: 36415; 80177; 82607; 82652; 82746

== ENCOUNTER 2024-07-09 09:23 | Day surgery (SDC) | payer MEDICARE, OTHER, SELFPAY ==
[2023-07-26 14:02] VITALS: BMI 22.5
--- NOTE | 2024-07-09 | PATH_ITS ---
[facility] Accession Number: [id number] No. of containers..01 Tissue . 01 Material submitted: . colon - SIGMOID COLON . 01 Diagnosis: SIGMOID COLON: Hyperplastic polyp. STO 07/13/20240 Local . 01 Electronically signed: . Ronald Ac MD, Pathologist NPI- [id number] . 01 Gross description: . Received in formalin with two patient identifiers and 1. Sigmoid colon biopsy, are two killian soft tissue fragments, 0.3-0.6 cm in greatest dimension, submitted in A1. ([id number]) /MRV 07/13/20241719 Local . 01 Pathologist provided ICD-10: K63.5 . 01 CPT . 199334 Specimen Comment: A courtesy copy of this report has been sent to [phone] Performed at: [address] [facility] [id number] MD Ronald Ac MD Phone: [phone]
[2024-07-09 09:53] VITALS: BP 134/71; PULSE 54; RESP 18; TEMP 36.3; O2SAT 98
--- NOTE | 2024-07-09 09:54 | P.HP_ITS ---
History of Present Illness History of Present Illness Chief complaint: Screening Colonoscopy Narrative: History of colon polyps [facility] Medical History (Updated 02/05/24 @ 13:20 by Lukas Alexander MD) Pelvic floor weakness in female Stress incontinence in female Sleep disorder Secondary osteoarthritis, left ankle and foot Facet arthropathy, lumbar Spondylosis of lumbar region without myelopathy or radiculopathy Facet arthropathy, cervical Constipation Calcium oxalate stones Chronic low back pain Impaired fasting glucose History of kidney stones Left renal stone Pneumonia Chronic hyponatremia History of COVID-19 Hyponatremia Chronic insomnia Do not resuscitate COVID-19 History of right breast cancer Fractures (~2003) Cervical spine disease Chicken pox Vertigo (~2009) Cataracts, bilateral (~2017) Partial blindness (~1946) History of colon polyps Tendonitis of left rotator cuff (~2018) Osteopenia Osteoarthritis of left hip Mixed hyperlipidemia Essential hypertension Seizure disorder (~03/14/21) Cerebrovascular disease TIA (transient ischemic attack) (~01/26/21) Diverticulitis Bilateral ureteral calculi Bilateral nephrolithiasis (~1981) Arthritis Glaucoma (~1998) Surgical History History of surgery History of lithotripsy (~1981) History of appendectomy (03/06/19) Status post cholecystectomy Status post partial mastectomy Family History Sister Cancer TIA (transient ischemic attack) Aneurysm Mother Hypertension Polycythemia vera Father Polycythemia vera Grandmother Cancer Social History marital status: household members: spouse Smoking Status: Former smoker second hand exposure: Yes alcohol intake: current caffeine: Yes Meds Home Medications and Allergies Home Medications Medication Instructions Recorded Confirmed Type timolol maleate 0.5 % eye drops 1 drp EYE-BOTH BID ##0 04/12/16 07/09/24 History cyanocobalamin (vitamin B-12) 1,000 mcg PO DAILY 03/06/19 03/13/24 History 1,000 mcg tablet (Vitamin B-12) aspirin 81 mg tablet,delayed 81 mg PO DAILY 08/26/21 07/09/24 History release vit 2 cap PO DAILY 08/26/21 07/09/24 History C,E,zinc,Gm-wbrft-1-lutein-zeaxanthin 250 mg-2.5 mg-0.5 mg capsule levetiracetam 750 mg tablet 750 mg PO BID 10/28/21 07/09/24 History cholecalciferol (vitamin D3) 50 50 mcg PO DAILY 02/05/23 03/13/24 History mcg (2,000 unit) capsule acetaminophen 500 mg tablet 500 mg PO Q6H PRN 07/26/23 03/13/24 History (Tylenol Extra Strength) cetirizine 10 mg tablet (Aller-[place]) 10 mg PO DAILY PRN 07/26/23 03/13/24 History losartan 100 mg tablet 100 mg PO DAILY #90 tabs 08/08/23 03/13/24 Rx tramadol 50 mg tablet 50 mg PO TID PRN pain #30 tabs 11/07/23 03/13/24 Rx meloxicam 15 mg tablet 15 mg PO DAILY #90 tabs 12/14/23 03/13/24 Rx atorvastatin 10 mg tablet 10 mg PO BEDTIME #90 tabs 03/26/24 Rx benzonatate 100 mg capsule 100 mg PO TID PRN cough #60 caps 05/27/24 Rx potassium citrate 10 mEq (1,080 10 meq PO 3XD #270 tabs 07/07/24 Rx mg) tablet,extended release amlodipine 10 mg tablet 10 mg PO DAILY #90 tabs 07/08/24 Rx Allergies Allergy/AdvReac Type Severity Reaction Status Date / Time No Known Drug Allergies Allergy Verified 07/09/24 09:44 Exam Narrative Exam Narrative: Oropharynx free of lesions Chest clear to auscultation percussion Cardiac exam reveals no S3 or murmur Assessment & Plan Assessment & Plan narrative: History of adenomatous colon polyps need follow-up colonoscopy in almost 10 year interval. Risks, benefits, alternatives have been explained. Time-Based Coding :: [TOTAL MINUTES] spent with patient and on the chart (including review of chart, obtaining history, exam, reviewing outside data, placing orders, documenting exam and treatment plan, and counseling patient) on [DATE].
--- NOTE | 2024-07-09 09:55 | PM.OP.COLON ---
Operative Date/Time/Diagnoses Date of procedure: 07/09/24 Pre-op diagnosis: See indication and findings Procedure & Clinicians Study performed: Colonoscopy Indications: History of adenomatous colon polyps Surgeon: Amina Vo Procedure Notes Procedure in detail: After informed consent was obtained the patient was placed in left lateral decubitus position. The video colonoscope was placed into the oropharynx and with the patient's help swallowed into the esophagus. The esophagus stomach and duodenal were carefully examined. On withdrawal, retroflexed view the GE junction was performed. The scope was removed. The patient tolerated procedure well. Blood loss none Complications none Sedation mac Findings 1. 2 5 mm polyps in the upper rectum Jumbo biopsied and removed completely 2. Otherwise negative colonoscopy to cecum Patient will not need follow-up colonoscopy given her essentially negative colonoscopy today and her age.
[2024-07-09] MEDS: LACTATED RINGERS 1,000 ML 42 ML IV (10:03)
[2024-07-09 11:05] VITALS: BP 127/60; PULSE 57; RESP 12; TEMP 36.4; O2SAT 97
[2024-07-09 11:10] VITALS: BP 132/61; PULSE 56; RESP 18; O2SAT 97
[2024-07-09 11:15] VITALS: BP 132/89; PULSE 54; RESP 17; O2SAT 98
[2024-07-09 11:21] VITALS: BP 143/63; PULSE 52; RESP 17; TEMP 36.7; O2SAT 96
== END 2024-07-09 11:42 | disposition home or self-care (01) ==
PROVIDERS: Family Provider Internal Medicine; PCP Internal Medicine; Referring Provider Internal Medicine Gastroenterology; Visit Provider Internal Medicine Gastroenterology
PROC: 0DJD8ZZ Inspection of Lower Intestinal Tract, Via Natural or Artificial Opening Endoscopic (ICD-10-PCS; CPT 45378; principal; 2024-07-09 10:30)
DX: Z12.11 Encounter for screening for malignant neoplasm of colon (principal); Z86.0101 Personal history of adenomatous and serrated colon polyps; K63.5 Polyp of colon
CPT/HCPCS: 45380; J2704

== ENCOUNTER → 2024-07-18 14:53 | Outpatient (CLI) | payer MEDICARE, OTHER, SELFPAY ==
[2023-07-26 14:02] VITALS: BMI 22.5
--- NOTE | 2024-07-18 14:54 | DI.RAD.S_ITS ---
PROCEDURE: XR KUB INDICATIONS: Follow-up bilateral kidney stones TECHNIQUE: One view of the abdomen acquired. COMPARISON: [facility], CR, XR KUB, 01/29/2024, 14:38. FINDINGS: Surgical changes and devices: None. Bowel: Bowel gas pattern is normal. Soft tissues: There are 4 and 6 mm oval radiodensities projecting in the right mid abdomen, which may represent renal calculi. . Visualized solid organ contours appear normal in size. Bones: No suspicious bony lesions. Partially evaluated right hip total arthroplasty. IMPRESSION: Possible right nephrolithiasis measuring 4 and 6 mm. Approved by: Madison Ramsey M.D.,Ph.D. on 07/19/2024 at 0:10
== END ==
PROVIDERS: Family Provider Internal Medicine; PCP Internal Medicine; Referring Provider Urology; Visit Provider Urology
DX: N20.0 Calculus of kidney (principal)
CPT/HCPCS: 74018

== ENCOUNTER → 2024-07-28 14:17 | Outpatient (CLI) | payer MEDICARE, OTHER, SELFPAY ==
[2024-07-28 14:12] VITALS: BMI 22.5
[2024-07-28 14:55] LABS: Hemoglobin A1C% w Est Avg Glu 5.6 % (4.0-6.0)
[2024-07-28 15:14] LABS: Aspartate Aminotransferase 33 IU/L (14-36); BUN Creatinine Ratio 34.4 (6-22); Blood Urea Nitrogen 22 mg/dL (7-17); Calcium 9.4 mg/dL (8.4-10.2); Carbon Dioxide 30 mmol/L (22-32); Chloride 95 mmol/L (98-107); Cholesterol 191 mg/dL (140-199); Estimated Glomerular Filt Rate > 60 mL/min (>60); Glucose 110 mg/dL (80-110); HDL Cholesterol 84 mg/dL (40-60); HEMOLYSIS < 15 (0-50); LDL Cholesterol Calculated 94 mg/dL (<100); Potassium 3.9 mmol/L (3.4-5.1); Sodium 133 mmol/L (137-145); Triglycerides 66 mg/dL (35-150)
== END ==
PROVIDERS: Family Provider Internal Medicine; PCP Internal Medicine; Referring Provider Internal Medicine; Visit Provider Internal Medicine
DX: R73.01 Impaired fasting glucose (principal); E78.2 Mixed hyperlipidemia; I10 Essential (primary) hypertension
CPT/HCPCS: 36415; 80048; 80061; 83036; 84450

== ENCOUNTER → 2024-08-18 16:55 | Outpatient (CLI) | payer MEDICARE, OTHER, SELFPAY ==
[2024-07-28 14:12] VITALS: BMI 22.5
[2024-08-18 18:01] LABS: Vitamin D 25 Hydroxy (D3) 26.5 ng/mL (30.0-100.0)
[2024-08-21 13:12] LABS: Levetiracetam Keppra 16.5 ug/mL (10.0-40.0)
== END ==
PROVIDERS: Family Provider Internal Medicine; PCP Internal Medicine; Referring Provider Psychiatry & Neurology Neurology; Visit Provider Psychiatry & Neurology Neurology
DX: E55.9 Vitamin D deficiency, unspecified (principal); G40.109 Localization-related (focal) (partial) symptomatic epilepsy and epileptic syndromes with simple partial seizures, not intractable, without status epilepticus
CPT/HCPCS: 36415; 80177; 82306

== ENCOUNTER → 2024-11-12 15:47 | Outpatient (CLI) | payer MEDICARE, OTHER, SELFPAY ==
[2024-07-28 14:12] VITALS: BMI 22.5
--- NOTE | 2024-11-12 15:53 | DI.RAD.S_ITS ---
PROCEDURE: XR HIP W PEL IF DONE LT 2V INDICATIONS: PAIN IN LEFT HIP TECHNIQUE: AP pelvis with lateral view(s) of the left hip(s). COMPARISON: [facility], , XR HIP W PEL IF DONE RT 2V, 08/18/2020, 11:28. FINDINGS: Bones: No fractures or dislocations. Pelvic ring appears intact. No suspicious bony lesions. Right hip arthroplasty. Hardware is intact without hardware fracture or periprosthetic lucency to suggest loosening. Alignment is stable. Moderate left arthritic change. Periarticular osteophytes are present. No distinct erosions. Soft tissues: The visualized bowel gas pattern is normal. No suspicious soft tissue calcifications. IMPRESSION: Moderate left hip arthritic change. Dictated by: Trina Ambrosio M.D. on 11/12/2024 at 18:38 Approved by: Trina Ambrosio M.D. on 11/12/2024 at 18:39
== END ==
LOC: RAD 15:50
PROVIDERS: Family Provider Internal Medicine; PCP Internal Medicine; Referring Provider Registered Nurse; Visit Provider Registered Nurse
DX: M25.552 Pain in left hip (principal); Z96.641 Presence of right artificial hip joint
CPT/HCPCS: 73502

== ENCOUNTER 2024-11-29 16:35 | Emergency (ER) | payer MEDICARE, OTHER, SELFPAY ==
[2024-07-28 14:12] VITALS: BMI 22.5
[2024-11-29] VITALS (8 sets, daily range): BP systolic 165–200; BP diastolic 73–94; PULSE 59–84; RESP 16; TEMP 36.6; O2SAT 96–98; BMI 22.9
[2024-11-29] MEDS: ONDANSETRON 4 MG/2 ML INJ IV (20:12)
--- NOTE | 2024-11-29 21:00 | ED.BACK ---
HPI - Back Pain/Injury <Stefan Smith MD - Last Filed: 11/30/24 15:16> General Chief Complaint: Back Pain/Injury Stated Complaint: Back Pain Time Seen by Provider: 11/29/24 16:51 History of Present Illness HPI Narrative: 84-year-old female with history of right-sided total hip replacement, ongoing right low back pain, and more recently left low back pain since October 2024, recalls prior left hip x-ray that was without fracture, managing her ongoing left-sided sciatica symptoms with PCP Dr. Clay, having been treated with tapering oral scheduled prednisone, prior meloxicam was held while on steroid, still taking tizanidine muscle relaxant. Had old supply of oxycodone that seemed to help some, but ran out. Complains of gmpm-kkwkbdl-olua-right low back pain, no new injury trauma recalled. No numbness or tingling to the lower extremities or perineal region. No incontinence of urine or stool. No fevers or chills. No prior back surgeries recalled. No painful or frequent urination. Denies nausea or vomiting. Related Data Home Medications ?Medication ?Instructions ?Recorded ?Confirmed timolol maleate 0.5 % eye drops 1 drp EYE-BOTH BID ##0 04/12/16 11/17/24 cyanocobalamin (vitamin B-12) 1,000 mcg PO DAILY 03/06/19 11/17/24 1,000 mcg tablet (Vitamin B-12) aspirin 81 mg tablet,delayed 81 mg PO DAILY 08/26/21 11/17/24 release vit 2 cap PO DAILY 08/26/21 11/17/24 C,E,zinc,Yo-voyei-2-lutein-zeaxanthin 250 mg-2.5 mg-0.5 mg capsule levetiracetam 750 mg tablet 750 mg PO BID 10/28/21 11/17/24 cholecalciferol (vitamin D3) 50 50 mcg PO DAILY 02/05/23 11/17/24 mcg (2,000 unit) capsule acetaminophen 500 mg tablet 500 mg PO Q6H PRN Moderate Pain 07/26/23 11/17/24 (Tylenol Extra Strength) (Scale Score 5-6) cetirizine 10 mg tablet (Aller-Amna) 10 mg PO DAILY 07/26/23 11/17/24 levetiracetam 500 mg tablet mg PO 11/17/24 11/17/24 Previous Rx's ?Medication ?Instructions ?Recorded amlodipine 10 mg tablet 10 mg PO DAILY #90 tabs 07/28/24 atorvastatin 10 mg tablet 10 mg PO BEDTIME #90 tabs 07/28/24 losartan 100 mg tablet 100 mg PO DAILY #90 tabs 07/28/24 potassium citrate 10 mEq (1,080 10 meq PO 3XD #270 tabs 09/29/24 mg) tablet,extended release meloxicam 15 mg tablet 15 mg PO DAILY #90 tabs 10/27/24 tizanidine 2 mg tablet 2 mg PO TID PRN muscle spasticity 11/17/24 #30 tabs prednisone 10 mg tablet See Rx Instructions .Route 11/26/24 .COMPLEX #20 tabs lidocaine 5 % topical patch See Rx Instructions topical 11/29/24 .COMPLEX #15 ea cyclobenzaprine 10 mg tablet 10 mg PO TID PRN muscle spasm #20 11/30/24 tabs hydrocodone 5 mg-acetaminophen 325 1 tab PO Q6H PRN pain #10 tabs 11/30/24 mg tablet Allergies Allergy/AdvReac Type Severity Reaction Status Date / Time No Known Drug Allergies Allergy Verified 11/17/24 10:22 Patient History <Stefan Smith MD - Last Filed: 11/30/24 15:16> Medical History Arthritis Bilateral nephrolithiasis (~1981) Bilateral ureteral calculi Calcium oxalate stones Cataracts, bilateral (~2017) Cerebrovascular disease Cervical spine disease Chicken pox Chronic hyponatremia Chronic insomnia Chronic low back pain COVID-19 Diverticulitis Do not resuscitate Essential hypertension Facet arthropathy, cervical Facet arthropathy, lumbar Fractures (~2003) Glaucoma (~1998) History of colon polyps History of COVID-19 History of kidney stones History of right breast cancer Hypercalciuria Hyponatremia Impaired fasting glucose Left renal stone Mixed hyperlipidemia Osteoarthritis of left hip Osteopenia Partial blindness (~1946) Pelvic floor weakness in female Pneumonia Secondary osteoarthritis, left ankle and foot Seizure disorder (~03/14/21) Sleep disorder Slow transit constipation Spondylosis of lumbar region without myelopathy or radiculopathy Stress incontinence in female Tendonitis of left rotator cuff (~2018) TIA (transient ischemic attack) (~01/26/21) Vertigo (~2009) Surgical History History of appendectomy (03/06/19) History of lithotripsy (~1981) History of surgery Status post cholecystectomy Status post partial mastectomy Family History Sister Cancer TIA (transient ischemic attack) Aneurysm Mother Hypertension Polycythemia vera Father Polycythemia vera Grandmother Cancer Social History marital status: household members: spouse second hand exposure: Yes alcohol intake: current caffeine: Yes tobacco type: cigarettes alcohol intake frequency: 0-2 drinks per day Alcohol type: wine Exam <Stefan Smith MD - Last Filed: 11/30/24 15:16> Narrative Exam Narrative: GENERAL: Well-developed patient, in mild distress. HEAD: Atraumatic. Normocephalic. EYES: Pupils equal round and reactive. Extraocular motions intact. No scleral icterus. No injection or drainage. ENT: Nose without bleeding, purulent drainage. Throat without erythema, tonsillar hypertrophy or exudate. Airway patent. NECK: Trachea midline. Non tender CARDIOVASCULAR: Regular rate and rhythm without murmurs, gallops, or rubs. RESPIRATORY: Clear to auscultation. Breath sounds equal bilaterally. No wheezes, rales, or rhonchi. GASTROINTESTINAL: Abdomen soft, non-tender, nondistended. EXTREMITIES: No edema or joint tenderness. BACK: Nontender without deformity or crepitance. No flank tenderness. No tenderness to lumbar midline or paraspinous musculature, nor along SI joints or sciatic groove either side. Attempted straight leg raise with effort but little lifting off the gurney both left side and right side due to low back pain. NEURO: AOx3. Motor functions grossly nonfocal. SKIN: No rash or erythema of visible areas Initial Vital Signs Initial Vital Signs: Vital Signs Temperature 97.8 F 11/29/24 16:43 Pulse Rate 60 11/29/24 16:43 Respiratory Rate 16 11/29/24 16:43 Blood Pressure 165/94 H 11/29/24 16:43 Pulse Oximetry 97 11/29/24 16:43 Oxygen Delivery Method Room Air 11/29/24 16:43 <Gita Burkett MD - Last Filed: 11/30/24 11:06> Initial Vital Signs Initial Vital Signs: Vital Signs Temperature 97.8 F 11/29/24 16:43 Pulse Rate 60 11/29/24 16:43 Respiratory Rate 16 11/29/24 16:43 Blood Pressure 165/94 H 11/29/24 16:43 Pulse Oximetry 97 11/29/24 16:43 Oxygen Delivery Method Room Air 11/29/24 16:43 Course <Stefan Smith MD - Last Filed: 11/30/24 15:16> Orders Ordered: ED Orders 11/30/24 08:44 CBC Auto Diff [Complete Blood Count AUTO DIFF] Stat CMP [Comprehensive Metabolic Panel] Stat Lipase Stat 11/30/24 09:00 UA Complete [Urinalysis and Microscopic] Stat Discontinued Medications Dexamethasone (Dexamethasone 10 Mg/Ml Vial) 10 mg IV NOW ONE Stop: 11/29/24 22:32 Last Admin: 11/29/24 22:59 Dose: 10 mg Documented By: SIENNA Diazepam (Diazepam 10 Mg/2 Ml Syringe) 5 mg IV NOW ONE Stop: 11/29/24 22:32 Last Admin: 11/29/24 22:59 Dose: 5 mg Documented By: SIENNA Hydromorphone HCl (Hydromorphone Hcl 0.5 Mg/0.5 Ml Syringe) 0.5 mg IV NOW ONE Stop: 11/29/24 20:05 Last Admin: 11/29/24 20:12 Dose: 0.5 mg Documented By: SIENNA Hydromorphone HCl (Hydromorphone Hcl 0.5 Mg/0.5 Ml Syringe) 0.5 mg IV NOW ONE Stop: 11/29/24 21:02 Last Admin: 11/29/24 21:13 Dose: 0.5 mg Documented By: SIENNA Hydromorphone HCl (Hydromorphone Hcl 0.5 Mg/0.5 Ml Syringe) 0.5 mg IV NOW ONE Stop: 11/30/24 07:49 Last Admin: 11/30/24 08:12 Dose: 0.5 mg Documented By: Ketorolac Tromethamine (Ketorolac 30 Mg/Ml Vial) 15 mg IV NOW ONE Stop: 11/30/24 10:53 Last Admin: 11/30/24 11:08 Dose: 15 mg Documented By: MILTON Ondansetron HCl (Ondansetron 4 Mg/2 Ml Inj) 4 mg IV NOW ONE Stop: 11/29/24 20:05 Last Admin: 11/29/24 20:12 Dose: 4 mg Documented By: SIENNA Pantoprazole Sodium (Pantoprazole 40 Mg Vial) 40 mg IV NOW ONE Stop: 11/29/24 22:33 Last Admin: 11/30/24 02:23 Dose: Not Given Documented By: ARIAN Vital Signs Vital signs: Vital Signs - 8 hr 11/30/24 07:25 11/30/24 07:25 11/30/24 07:30 Pulse Rate 67 65 Respiratory Rate 25 H 24 Blood Pressure 188/83 H Pulse Oximetry 98 97 Oxygen Delivery Method 11/30/24 07:31 11/30/24 07:31 11/30/24 08:00 Pulse Rate 64 61 Respiratory Rate 22 19 Blood Pressure 170/72 H Pulse Oximetry 94 96 Oxygen Delivery Method 11/30/24 08:01 11/30/24 08:01 11/30/24 08:30 Pulse Rate 59 L Respiratory Rate 24 Blood Pressure 170/70 H 173/111 H Pulse Oximetry 97 Oxygen Delivery Method 11/30/24 08:30 11/30/24 09:00 11/30/24 09:01 Pulse Rate 59 L 66 Respiratory Rate 23 Blood Pressure 201/84 H Pulse Oximetry 97 97 Oxygen Delivery Method 11/30/24 09:01 11/30/24 11:00 11/30/24 11:01 Pulse Rate 62 60 62 Respiratory Rate 28 H Blood Pressure Pulse Oximetry 97 95 96 Oxygen Delivery Method 11/30/24 11:01 11/30/24 11:14 11/30/24 11:22 Pulse Rate Respiratory Rate 20 Blood Pressure 182/81 H 159/138 H 174/74 H Pulse Oximetry Oxygen Delivery Method 11/30/24 11:22 Pulse Rate 60 Respiratory Rate Blood Pressure Pulse Oximetry 94 Oxygen Delivery Method Room Air <Gita Burkett MD - Last Filed: 11/30/24 11:06> Orders Ordered: ED Orders 11/30/24 08:44 CBC Auto Diff [Complete Blood Count AUTO DIFF] Stat CMP [Comprehensive Metabolic Panel] Stat Lipase Stat 11/30/24 09:00 UA Complete [Urinalysis and Microscopic] Stat Discontinued Medications Dexamethasone (Dexamethasone 10 Mg/Ml Vial) 10 mg IV NOW ONE Stop: 11/29/24 22:32 Last Admin: 11/29/24 22:59 Dose: 10 mg Documented By: SIENNA Diazepam (Diazepam 10 Mg/2 Ml Syringe) 5 mg IV NOW ONE Stop: 11/29/24 22:32 Last Admin: 11/29/24 22:59 Dose: 5 mg Documented By: SIENNA Hydromorphone HCl (Hydromorphone Hcl 0.5 Mg/0.5 Ml Syringe) 0.5 mg IV NOW ONE Stop: 11/29/24 20:05 Last Admin: 11/29/24 20:12 Dose: 0.5 mg Documented By: SIENNA Hydromorphone HCl (Hydromorphone Hcl 0.5 Mg/0.5 Ml Syringe) 0.5 mg IV NOW ONE Stop: 11/29/24 21:02 Last Admin: 11/29/24 21:13 Dose: 0.5 mg Documented By: SIENNA Hydromorphone HCl (Hydromorphone Hcl 0.5 Mg/0.5 Ml Syringe) 0.5 mg IV NOW ONE Stop: 11/30/24 07:49 Last Admin: 11/30/24 08:12 Dose: 0.5 mg Documented By: Ketorolac Tromethamine (Ketorolac 30 Mg/Ml Vial) 15 mg IV NOW ONE Stop: 11/30/24 10:53 Last Admin: 11/30/24 11:08 Dose: 15 mg Documented By: MILTON Ondansetron HCl (Ondansetron 4 Mg/2 Ml Inj) 4 mg IV NOW ONE Stop: 11/29/24 20:05 Last Admin: 11/29/24 20:12 Dose: 4 mg Documented By: SIENNA Pantoprazole Sodium (Pantoprazole 40 Mg Vial) 40 mg IV NOW ONE Stop: 11/29/24 22:33 Last Admin: 11/30/24 02:23 Dose: Not Given Documented By: ARIAN Vital Signs Vital signs: Vital Signs - 8 hr 11/30/24 07:25 11/30/24 07:25 11/30/24 07:30 Pulse Rate 67 65 Respiratory Rate 25 H 24 Blood Pressure 188/83 H Pulse Oximetry 98 97 Oxygen Delivery Method 11/30/24 07:31 11/30/24 07:31 11/30/24 08:00 Pulse Rate 64 61 Respiratory Rate 22 19 Blood Pressure 170/72 H Pulse Oximetry 94 96 Oxygen Delivery Method 11/30/24 08:01 11/30/24 08:01 11/30/24 08:30 Pulse Rate 59 L Respiratory Rate 24 Blood Pressure 170/70 H 173/111 H Pulse Oximetry 97 Oxygen Delivery Method 11/30/24 08:30 11/30/24 09:00 11/30/24 09:01 Pulse Rate 59 L 66 Respiratory Rate 23 Blood Pressure 201/84 H Pulse Oximetry 97 97 Oxygen Delivery Method 11/30/24 09:01 11/30/24 11:00 11/30/24 11:01 Pulse Rate 62 60 62 Respiratory Rate 28 H Blood Pressure Pulse Oximetry 97 95 96 Oxygen Delivery Method 11/30/24 11:01 11/30/24 11:14 11/30/24 11:22 Pulse Rate Respiratory Rate 20 Blood Pressure 182/81 H 159/138 H 174/74 H Pulse Oximetry Oxygen Delivery Method 11/30/24 11:22 Pulse Rate 60 Respiratory Rate Blood Pressure Pulse Oximetry 94 Oxygen Delivery Method Room Air MDM - Back Pain/Injury <Stefan Smith MD - Last Filed: 11/30/24 15:16> Lab Data 11/30/24 08:44 11/30/24 08:44 Labs: Lab Results 11/30/24 11/30/24 Range/Units 08:44 09:00 WBC 11.0 (4.5-11.0) X10^3/uL RBC 3.81 L (4.0-5.2) X10^6/uL Hgb 13.0 (12.0-16.0) g/dL Hct 37.9 (36-46) % MCV 99.5 (80-100) fL MCH 34.1 H (26-34) PG MCHC 34.3 (30-36) % RDW 13.5 (11.6-14.8) % Plt Count 296 (150-400) X10^3/uL Neut % (Auto) 91.2 H (50-75) % Lymph % (Auto) 5.7 L (25-40) % Lincoln % (Auto) 2.9 L (3-14) % Eos % (Auto) 0.0 L (2-4) % Baso % (Auto) 0.2 (0-2) % Neut # (Auto) 07737 H (1515-4039) /uL Lymph # (Auto) 600 L (2264-9553) /uL Lincoln # (Auto) 300 (0-900) /uL Eos # (Auto) 0 (0-450) /uL Baso # (Auto) 0 (0-100) /uL Sodium 131 L (137-145) mmol/L Potassium 4.2 (3.4-5.1) mmol/L Chloride 97 L (98-107) mmol/L Carbon Dioxide 26 (22-32) mmol/L BUN 17 (7-17) mg/dL Creatinine 0.47 L (0.52-1.04) mg/dL Estimated GFR > 60 (>60) mL/min BUN/Creatinine Ratio 36.2 H (6-22) Glucose 158 H (70-99) mg/dL Calcium 9.2 (8.4-10.2) mg/dL Total Bilirubin 0.6 (0.2-1.3) mg/dL AST 29 (14-36) IU/L ALT 18 (<35) IU/L Alkaline Phosphatase 149 H (38-126) U/L Total Protein 7.9 (6.3-8.2) g/dL Albumin 4.2 (3.5-5.0) g/dL Globulin 3.7 (1.7-4.1) g/dL Albumin/Globulin Ratio 1.1 (1.0-2.8) Lipase 22 L (23-300) U/L Urine Color Yellow Urine Appearance Clear Urine pH 7.5 (4.5-8.0) Ur Specific Mears 1.010 (1.000-1.035) Urine Protein 1+ H (Negative) Urine Glucose (UA) Negative (Negative) g/dL Urine Ketones 1+ H (NEGATIVE) Urine Occult Blood Negative (Negative) Urine Nitrate Negative (Negative) Urine Bilirubin Negative (NEGATIVE) Urine Urobilinogen 0.2 (0.2) E.U./dL Ur Leukocyte Esterase Trace H (NEGATIVE) Urine RBC None seen (0-5/HPF) Urine WBC 1-5/hpf (0-5/HPF) Ur Squamous Epith Cells None seen (0-5/HPF) Urine Bacteria None seen (None) Ur Culture Indicated? Cult not indicated Vol Urine Centrifuged 10ml (spun) Imaging Data CT scan - abdomen/pelvis: Radiologist's Impression: [address] [address] [address] Scan Report Signed Patient: Brenda Lerma MR#: [id number] : 1940 Acct:[id number] Age/Sex: 84 / F Date of Service: 11/29/24 Loc: ED Accession Number: [id number] Procedure: CT abdomen pelvis wo con Ordering Provider: Stefan Smith MD PROCEDURE: CT ABDOMEN PELVIS WO CON INDICATIONS: low back pain TECHNIQUE: CT of the abdomen and pelvis was obtained without intravenous contrast. Coronal and sagittal reformats were performed. For radiation dose reduction, the following was used: automated exposure control, adjustment of mA and/or kV according to patient size. COMPARISON: None. FINDINGS: Image quality: Diagnostic. Lower Chest: External right breast prosthesis. Small hiatal hernia. Mild cardiomegaly. ABDOMEN: Liver: No contour-deforming mass. Gallbladder: Gallbladder sludge versus small stones. No wall thickening or pericholecystic edema to suggest acute cholecystitis. Biliary ducts: No biliary dilation. Pancreas: No ductal dilation. Spleen: Size is within normal limits. Adrenal Glands: No adrenal nodules. Kidneys and Ureters: No hydronephrosis. No contour-deforming mass. Small burden of bilateral nonobstructing nephrolithiasis largest stone on the left measures 7 x 5 mm and largest stone on the right measures 10 x 6 mm. Stomach and Bowel: Normal colonic caliber, without significant wall thickening. Peritoneum: No abnormal intraperitoneal fluid. No free air. Ventral Wall: No significant hernia. Abdominal Nodes: No retroperitoneal or mesenteric adenopathy by size criteria. Vessels: Aorta and inferior vena cava are normal in size. PELVIS: Pelvic Organs: Unremarkable. Bladder: Gas within the urinary bladder. Pelvic Nodes: No enlarged lymph nodes. Miscellaneous: Small left inguinal hernia containing fat. Bones: No aggressive osseous abnormality. Multilevel degenerative disc disease and facet arthrosis, without significant spinal canal narrowing. IMPRESSION: Gas within the urinary bladder, which may indicate infection. Differential includes recent instrumentation. Multilevel degenerative disc disease and facet arthrosis, without significant spinal canal narrowing. Small burden of bilateral nonobstructing nephrolithiasis. Dictated by: Ashu Graham M.D. on 11/29/2024 at 23:08 Approved by: Ashu Graham M.D. on 11/29/2024 at 23:12 MDM Narrative Medical decision making narrative: 84-year-old female with ongoing bilateral lower back pain, recent prednisone tapering schedules not helping, on tizanidine muscle relaxant regimen from PCP Obed, previously on meloxicam that has been held while on prednisone, not controlling her pain. Afebrile, sirs screen negative. Straight leg raise attempt both sides very poor, limited due to pain bilateral lower back. Offered advanced imaging of lumbar spine and/or abdomen and pelvis, she declines this for now. We would like injectable pain medicine and possible refill of her oxycodone. IV Dilaudid 0.5 mg little relief, repeat dose, add Zofran. 2230, patient has still had little relief from IV Dilaudid doses thus far. Patient now agreeable to imaging. CT abdomen and pelvis noncontrast scan ordered. She is interested in muscle relaxant, has been on tizanidine, will give IV diazepam. We will add IV Decadron with GI protective PPI. 2345, sleeping, went home 0200, still sleeping. CT abdomen and pelvis. IMPRESSION: Gas within the urinary bladder, which may indicate infection. Differential includes recent instrumentation. Multilevel degenerative disc disease and facet arthrosis, without significant spinal canal narrowing. Small burden of bilateral nonobstructing nephrolithiasis. See radiology report. 0300, still sleeping after IV diazepam, prior diladudid doses. went home. Further observe in the ED. 0700, patient is still quite sleepy per nursing, re-evaluate when more alert for disposition plan, if needs further medication, if needs further imaging MRI, if feels comfortable going home later. Signed out to oncoming ED shift physician . (notes below from Dr Burkett) 11/30/2024, 7:52 a.m.: I did check with the patient and she said the pin was acting up again. She was be able to bend her knee on the stretcher on both legs. I told the patient that the CT scan abdomen and pelvis came back showing no acute finding but gas in the urinary bladder suspicious of UTI. I ordered a urine test, lab tests including CBC, CMP, lipase. 11:03 a.m. went to talk to the patient the pain was better. I told her the lab results. Her CBC showed no leukocytosis. Her hemoglobin was 13 otherwise normal CBC. The sodium was 131 with normal kidney function, potassium, calcium. Her LFTs showed Darin my elevation alkaline phosphatase otherwise normal LFT. Her lipase was normal. Her UA showed no UTI. In our ER she was given Dilaudid, Zofran, dexamethasone, Valium, Protonix, Toradol. She was sent home with Vicodin, Flexeril. I actually to follow up with her PCP outpatient otherwise come back to the emergency room if you have any worsening symptoms including but not limited to fever, nausea vomiting, abdominal pain, back pain, urine problem, diarrhea, constipation. <Gita Burkett MD - Last Filed: 11/30/24 11:06> Lab Data Labs: Lab Results 11/30/24 11/30/24 Range/Units 08:44 09:00 WBC 11.0 (4.5-11.0) X10^3/uL RBC 3.81 L (4.0-5.2) X10^6/uL Hgb 13.0 (12.0-16.0) g/dL Hct 37.9 (36-46) % MCV 99.5 (80-100) fL MCH 34.1 H (26-34) PG MCHC 34.3 (30-36) % RDW 13.5 (11.6-14.8) % Plt Count 296 (150-400) X10^3/uL Neut % (Auto) 91.2 H (50-75) % Lymph % (Auto) 5.7 L (25-40) % Lincoln % (Auto) 2.9 L (3-14) % Eos % (Auto) 0.0 L (2-4) % Baso % (Auto) 0.2 (0-2) % Neut # (Auto) 62137 H (2605-9283) /uL Lymph # (Auto) 600 L (2848-5029) /uL Lincoln # (Auto) 300 (0-900) /uL Eos # (Auto) 0 (0-450) /uL Baso # (Auto) 0 (0-100) /uL Sodium 131 L (137-145) mmol/L Potassium 4.2 (3.4-5.1) mmol/L Chloride 97 L (98-107) mmol/L Carbon Dioxide 26 (22-32) mmol/L BUN 17 (7-17) mg/dL Creatinine 0.47 L (0.52-1.04) mg/dL Estimated GFR > 60 (>60) mL/min BUN/Creatinine Ratio 36.2 H (6-22) Glucose 158 H (70-99) mg/dL Calcium 9.2 (8.4-10.2) mg/dL Total Bilirubin 0.6 (0.2-1.3) mg/dL AST 29 (14-36) IU/L ALT 18 (<35) IU/L Alkaline Phosphatase 149 H (38-126) U/L Total Protein 7.9 (6.3-8.2) g/dL Albumin 4.2 (3.5-5.0) g/dL Globulin 3.7 (1.7-4.1) g/dL Albumin/Globulin Ratio 1.1 (1.0-2.8) Lipase 22 L (23-300) U/L Urine Color Yellow Urine Appearance Clear Urine pH 7.5 (4.5-8.0) Ur Specific Mears 1.010 (1.000-1.035) Urine Protein 1+ H (Negative) Urine Glucose (UA) Negative (Negative) g/dL Urine Ketones 1+ H (NEGATIVE) Urine Occult Blood Negative (Negative) Urine Nitrate Negative (Negative) Urine Bilirubin Negative (NEGATIVE) Urine Urobilinogen 0.2 (0.2) E.U./dL Ur Leukocyte Esterase Trace H (NEGATIVE) Urine RBC None seen (0-5/HPF) Urine WBC 1-5/hpf (0-5/HPF) Ur Squamous Epith Cells None seen (0-5/HPF) Urine Bacteria None seen (None) Ur Culture Indicated? Cult not indicated Vol Urine Centrifuged 10ml (spun) MDM Narrative Medical decision making narrative: 84-year-old female with ongoing bilateral lower back pain, recent prednisone tapering schedules not helping, on tizanidine muscle relaxant regimen from PCP Obed, previously on meloxicam that has been held while on prednisone, not controlling her pain. Afebrile, sirs screen negative. Straight leg raise attempt both sides very poor, limited due to pain bilateral lower back. Offered advanced imaging of lumbar spine and/or abdomen and pelvis, she declines this for now. We would like injectable pain medicine and possible refill of her oxycodone. IV Dilaudid 0.5 mg little relief, repeat dose, add Zofran. 2230, patient has still had little relief from IV Dilaudid doses thus far. Patient now agreeable to imaging. CT abdomen and pelvis noncontrast scan ordered. She is interested in muscle relaxant, has been on tizanidine, will give IV diazepam. We will add IV Decadron with GI protective PPI. 2345, sleeping, went home 0200, still sleeping. CT abdomen and pelvis. IMPRESSION: Gas within the urinary bladder, which may indicate infection. Differential includes recent instrumentation. Multilevel degenerative disc disease and facet arthrosis, without significant spinal canal narrowing. Small burden of bilateral nonobstructing nephrolithiasis. See radiology report. 0700, patient is still quite sleepy, re-evaluate when more alert, for disposition plan, if needs further medication, if needs placement, if feels comfortable discharging on some kind of oral regimen. Signed out to oncoming ED shift physician . 11/30/2024, 7:52 a.m.: I did check with the patient and she said the pin was acting up again. She was be able to bend her knee on the stretcher on both legs. I told the patient that the CT scan abdomen and pelvis came back showing no acute finding but gas in the urinary bladder suspicious of UTI. I ordered a urine test, lab tests including CBC, CMP, lipase. 11:03 a.m. went to talk to the patient the pain was better. I told her the lab results. Her CBC showed no leukocytosis. Her hemoglobin was 13 otherwise normal CBC. The sodium was 131 with normal kidney function, potassium, calcium. Her LFTs showed Darin my elevation alkaline phosphatase otherwise normal LFT. Her lipase was normal. Her UA showed no UTI. In our ER she was given Dilaudid, Zofran, dexamethasone, Valium, Protonix, Toradol. She was sent home with Vicodin, Flexeril. I actually to follow up with her PCP outpatient otherwise come back to the emergency room if you have any worsening symptoms including but not limited to fever, nausea vomiting, abdominal pain, back pain, urine problem, diarrhea, constipation. Discharge Plan Departure Patient Disposition: Home Clinical Impression: Low back pain Instructions: DI for Low Back Pain Activity Restrictions/Additional Instructions: Please call your primary care doctor and follow-up for your low back pain. Prescriptions: New cyclobenzaprine 10 mg tablet 10 mg PO TID PRN (Reason: muscle spasm) Qty: 20 0RF hydrocodone-acetaminophen 5-325 mg tablet 1 tab PO Q6H PRN (Reason: pain) Qty: 10 0RF No Action timolol maleate 0.5 % drops 1 drp EYE-BOTH BID Qty: 0 potassium citrate 10 mEq (1,080 mg) tablet extended release 10 meq PO 3XD Qty: 270 1RF meloxicam 15 mg tablet 15 mg PO DAILY Qty: 90 1RF Rx Instructions: don't take any other Nsaids with this medication. Always take with food. prednisone 10 mg tablet See Rx Instructions .Route .COMPLEX Qty: 20 2RF Rx Instructions: 4 tablets daily for 2 days, then 3 tablets daily for 2 days, then 2 tablets daily for 2 days, then 1 tablet daily for 2 days then stop; lidocaine 5 % adhesive patch,medicated See Rx Instructions topical .COMPLEX Qty: 15 0RF Rx Instructions: leave on most painful area for up to 12 hrs topical aspirin 81 mg tablet,delayed release (DR/EC) 81 mg PO DAILY vit C,E,Zn,Ve--kwl-zeax 250-2.5-0.5 mg capsule 2 cap PO DAILY acetaminophen [Tylenol Extra Strength] 500 mg tablet 500 mg PO Q6H PRN (Reason: Moderate Pain (Scale Score 5-6)) cetirizine [Aller-Amna] 10 mg tablet 10 mg PO DAILY levetiracetam 750 mg tablet 750 mg PO BID losartan 100 mg tablet 100 mg PO DAILY Qty: 90 3RF amlodipine 10 mg tablet 10 mg PO DAILY Qty: 90 3RF atorvastatin 10 mg tablet 10 mg PO BEDTIME Qty: 90 3RF levetiracetam 500 mg tablet PO tizanidine 2 mg tablet 2 mg PO TID PRN (Reason: muscle spasticity) Qty: 30 1RF cyanocobalamin (vitamin B-12) [Vitamin B-12] 1,000 mcg Tablet 1,000 mcg PO DAILY cholecalciferol (vitamin D3) 50 mcg (2,000 unit) capsule 50 mcg PO DAILY Referrals: Alex Clay MD [Primary Care Provider, Internal Medicine] Stand Alone Forms: Patient Portal/API
--- NOTE | 2024-11-29 22:31 | DI.CT.S_ITS ---
PROCEDURE: CT ABDOMEN PELVIS WO CON INDICATIONS: low back pain TECHNIQUE: CT of the abdomen and pelvis was obtained without intravenous contrast. Coronal and sagittal reformats were performed. For radiation dose reduction, the following was used: automated exposure control, adjustment of mA and/or kV according to patient size. COMPARISON: None. FINDINGS: Image quality: Diagnostic. Lower Chest: External right breast prosthesis. Small hiatal hernia. Mild cardiomegaly. ABDOMEN: Liver: No contour-deforming mass. Gallbladder: Gallbladder sludge versus small stones. No wall thickening or pericholecystic edema to suggest acute cholecystitis. Biliary ducts: No biliary dilation. Pancreas: No ductal dilation. Spleen: Size is within normal limits. Adrenal Glands: No adrenal nodules. Kidneys and Ureters: No hydronephrosis. No contour-deforming mass. Small burden of bilateral nonobstructing nephrolithiasis largest stone on the left measures 7 x 5 mm and largest stone on the right measures 10 x 6 mm. Stomach and Bowel: Normal colonic caliber, without significant wall thickening. Peritoneum: No abnormal intraperitoneal fluid. No free air. Ventral Wall: No significant hernia. Abdominal Nodes: No retroperitoneal or mesenteric adenopathy by size criteria. Vessels: Aorta and inferior vena cava are normal in size. PELVIS: Pelvic Organs: Unremarkable. Bladder: Gas within the urinary bladder. Pelvic Nodes: No enlarged lymph nodes. Miscellaneous: Small left inguinal hernia containing fat. Bones: No aggressive osseous abnormality. Multilevel degenerative disc disease and facet arthrosis, without significant spinal canal narrowing. IMPRESSION: Gas within the urinary bladder, which may indicate infection. Differential includes recent instrumentation. Multilevel degenerative disc disease and facet arthrosis, without significant spinal canal narrowing. Small burden of bilateral nonobstructing nephrolithiasis. Dictated by: Ashu Graham M.D. on 11/29/2024 at 23:08 Approved by: Ashu Graham M.D. on 11/29/2024 at 23:12
[2024-11-29] MEDS: DEXAMETHASONE 10 MG/ML VIAL IV (22:59)
[2024-11-30] VITALS (31 sets, daily range): BP systolic 136–201; BP diastolic 65–138; PULSE 57–81; RESP 15–30; O2SAT 92–98
[2024-11-30 08:51] LABS: Add Manual Diff / Slide Review NO; Hematocrit 37.9 % (36-46); Hemoglobin 13.0 g/dL (12.0-16.0); Lymphocytes Absolute Auto 600 /uL (1100-4500); Mean Corpuscular HGB Conc 34.3 % (30-36); Mean Corpuscular Hemoglobin 34.1 PG (26-34); Mean Corpuscular Volume 99.5 fL (80-100); Platelet Count 296 X10^3/uL (150-400)
[2024-11-30 09:02] LABS: Alanine Aminotransferase 18 IU/L (<35); Albumin 4.2 g/dL (3.5-5.0); Albumin Globulin Ratio 1.1 (1.0-2.8); Alkaline Phosphatase 149 U/L (38-126); Blood Urea Nitrogen 17 mg/dL (7-17); Calcium 9.2 mg/dL (8.4-10.2); Carbon Dioxide 26 mmol/L (22-32); Chloride 97 mmol/L (98-107); Estimated Glomerular Filt Rate > 60 mL/min (>60); Globulin 3.7 g/dL (1.7-4.1); Glucose 158 mg/dL (70-99); HEMOLYSIS 17 (0-50); Lipase 22 U/L (23-300); Potassium 4.2 mmol/L (3.4-5.1); Sodium 131 mmol/L (137-145); Total Protein 7.9 g/dL (6.3-8.2)
[2024-11-30 09:14] LABS: Appearance Urine UA CLEAR; Bilirubin Urine UA NEGATIVE (NEGATIVE); Color Urine UA YELLOW; Glucose Urine UA NEGATIVE (Negative); Ketones Urine UA 1+ (NEGATIVE); Leukocyte Esterase Urine UA TRACE (NEGATIVE); Nitrite Urine UA NEGATIVE (Negative); Occult Blood Urine UA NEGATIVE (Negative); Protein Urine UA 1+ (Negative); Specific Gravity Urine UA 1.010 (1.000-1.035); Urobilinogen Urine UA 0.2 E.U./dL (0.2)
[2024-11-30 09:15] LABS: pH Urine UA 7.5 (4.5-8.0)
[2024-11-30 09:26] LABS: Culture Indicated Urine Cult Not Indicated
[2024-11-30] MEDS: KETOROLAC 30 MG/ML VIAL 15 MG IV (11:08)
== END 2024-11-30 11:34 | disposition home or self-care (01) ==
PROVIDERS: Emergency Provider Emergency Medicine; Family Provider Internal Medicine; PCP Internal Medicine
DX: M54.50 Low back pain, unspecified (principal); Z96.641 Presence of right artificial hip joint
CPT/HCPCS: 36415; 74176; 80053; 81001; 83690; 85025; 96374; 96375; 96376; 99284; J1100; J1171; J1885; J2405; J3360

== ENCOUNTER → 2024-12-05 16:00 | Outpatient (CLI) | payer MEDICARE, OTHER, SELFPAY ==
[2024-07-28 14:12] VITALS: BMI 22.5
--- NOTE | 2024-12-05 16:01 | DI.MRI.S_ITS ---
PROCEDURE: MR LUMBAR SPINE WO CON INDICATIONS: low back pain TECHNIQUE: Noncontrast sagittal T1 spin echo and T2 fast echo, sagittal STIR, and T2 fast spin echo through the lumbar spine. In cases with scoliosis, additional coronal T2 fast spin echo may be performed. COMPARISON: [facility], CT, CT ABDOMEN PELVIS WO CON, 11/29/2024, 22:34. CR, XR LUMBAR SPINE 2-3V, 01/04/2023, 12:22. FINDINGS: Image quality: Excellent. Alignment and Curvature: There is trace anterolisthesis of L3 on L4. Bone Marrow: Marrow is of normal overall signal. There is decreased T1 and increased T2 signal within the sacrum. There is mild appearance of decreased bone mineral density on recent CT within this region. Mild reactive endplate changes are present multiple levels of the lumbar spine most severe at L5-S1 as well as L1-2 with Schmorl's node. No acute vertebral body compression fractures. Spinal Cord: Conus medullaris terminates at the L1-2 level. Visualized cord demonstrates normal signal and size. Paraspinous Soft Tissues: No paravertebral masses. Simple right renal cyst. Discs: Multilevel moderate to severe disc desiccation most prominent L3-4, L5-S1. T12-L1: No disc bulge, spinal stenosis or foraminal narrowing. L1-L2: No disc bulge, spinal stenosis or foraminal narrowing. L2-L3: Minimal disc bulge without spinal stenosis. Trace bilateral foraminal narrowing with facet and ligamentum flavum hypertrophy. Epidural lipomatosis. L3-L4: Mild disc bulge with mild narrowing of the spinal canal. Moderate right and [id number] left foraminal narrowing with facet and ligamentum flavum hypertrophy. L4-L5: Mild disc bulge without spinal stenosis. Minimal to mild bilateral foraminal narrowing with facet and ligamentum flavum hypertrophy. L5-S1: Mild disc bulge without spinal stenosis. Moderate bilateral foraminal narrowing with facet and ligamentum flavum hypertrophy. IMPRESSION: Multilevel degenerative changes with foraminal narrowing most severe at L3-4 and L5-S1 secondary to facet/ligamentum flavum arthropathy. Mild spinal stenosis L3-4 secondary to disc bulge with contributing effect of facet/ligamentum flavum arthropathy. Dictated by: Trina Ambrosio M.D. on 12/06/2024 at 21:24 Approved by: Trina Ambrosio M.D. on 12/06/2024 at 21:31
== END ==
PROVIDERS: Family Provider Internal Medicine; PCP Internal Medicine; Referring Provider Internal Medicine; Visit Provider Internal Medicine
DX: M51.16 Intervertebral disc disorders with radiculopathy, lumbar region (principal); M47.26 Other spondylosis with radiculopathy, lumbar region; M48.061 Spinal stenosis, lumbar region without neurogenic claudication; M47.27 Other spondylosis with radiculopathy, lumbosacral region; M48.07 Spinal stenosis, lumbosacral region; M54.50 Low back pain, unspecified; M25.552 Pain in left hip; G89.29 Other chronic pain
CPT/HCPCS: 72148

== ENCOUNTER → 2025-02-09 10:17 | Outpatient (CLI) | payer MEDICARE, OTHER, SELFPAY ==
[2024-07-28 14:12] VITALS: BMI 22.5
--- NOTE | 2025-02-09 10:20 | DI.RAD.S_ITS ---
PROCEDURE: XR LUMBAR SPINE MIN 4V INDICATIONS: BACK PAIN TECHNIQUE: 5 views of the lumbar spine were acquired, including bilateral oblique views. COMPARISON: [facility], CR, XR LUMBAR SPINE 2-3V, 01/04/2023, 12:22. [facility], MR, MR LUMBAR SPINE WO CON, 12/05/2024, 16:02. FINDINGS: Bones: 5 nonrib-bearing vertebrae are present. Mild, grade 1, anterolisthesis of L3 on L4. Multilevel spondylosis is moderate at L3-4, L4-5, and L5-S1. Moderate bilateral facet arthrosis in the inferior lumbar spine. 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 No vertebral body compression fractures. No suspicious bony lesions. Soft tissues: Overlying bowel gas pattern is normal. No suspicious soft tissue calcifications. Oblique images: No pars defects. IMPRESSION: Mild, grade 1, anterolisthesis of L3 on L4. Multilevel moderate spondylosis, better evaluated on recent lumbar spine MRI. Dictated by: Ez San M.D. on 02/09/2025 at 11:00 Approved by: Ez San M.D. on 02/09/2025 at 11:02
== END ==
PROVIDERS: PCP Internal Medicine; Referring Provider Physical Medicine & Rehabilitation; Visit Provider Physical Medicine & Rehabilitation
DX: M47.816 Spondylosis without myelopathy or radiculopathy, lumbar region (principal); M47.817 Spondylosis without myelopathy or radiculopathy, lumbosacral region; M43.16 Spondylolisthesis, lumbar region; M16.12 Unilateral primary osteoarthritis, left hip; Z96.641 Presence of right artificial hip joint
CPT/HCPCS: 72110